=== PATIENT | female | born 1950 | race Caucasian/White ===

== ENCOUNTER 2020-08-22 07:27 | Day surgery (SDC) | payer MEDICARE, SELFPAY ==
[2020-08-17 14:21] VITALS: BMI 20.7
--- NOTE | 2020-08-21 14:06 | HO.ANESPROP2 ---
Documented by User: Verito Delgado 08/21/20 14:07 HPI - Anesthesia Eval Consult details Narrative: 69yo F for Colonoscopy FOR[facility] Past Medical History Medical History Asthma Rheumatoid arthritis Surgical History Surgical History History of bilateral tubal ligation S/P breast lumpectomy Social History Social History Smoking Status: Never smoker Use of substances other than those prescribed or required for medical reasons: No Advance Directives: No Advance Directives Information Provided: Yes Meds Allergies Allergy/AdvReac Type Severity Reaction Status Date / Time nitrofurantoin [Macrobid] Allergy Unknown Verified 02/06/20 00:00 simvastatin Allergy Unknown Uncoded 02/06/20 00:00 Home Medications Medication Instructions Recorded Confirmed Type leflunomide 1 tab PO DAILY 08/17/20 08/17/20 History Exam Exam Date and Time: August 21, 2020 1406 Height,Weight and Vital Signs: Height 5 ft 5 in Weight 56.699 kg Assessment and Plan Assessment Anesthesia Assessment: Chart Reviewed Documented by User: Lenora Gonsales 08/22/20 08:02 [facility] Past Medical History Medical History Asthma Rheumatoid arthritis Surgical History Surgical History History of bilateral tubal ligation S/P breast lumpectomy Social History Social History Smoking Status: Never smoker Use of substances other than those prescribed or required for medical reasons: No Advance Directives: No Advance Directives Information Provided: Yes Meds Allergies Allergy/AdvReac Type Severity Reaction Status Date / Time nitrofurantoin [Macrobid] Allergy Unknown Verified 02/06/20 00:00 simvastatin Allergy Unknown Uncoded 02/06/20 00:00 Home Medications Medication Instructions Recorded Confirmed Type leflunomide 1 tab PO DAILY 08/17/20 08/17/20 History Exam Airway Mallampati Class: III TM Dist: >3cm Neck ROM: Full Partial: Upper (Permant upper bridge midline to RT) Heart: RRR Lungs: CTA Assessment and Plan Assessment Anesthesia Assessment: Anesthesia Plan Discussed and Chart Reviewed Final Anesthetic Review NPO: Yes ASA Class: II Final Preanesthetic Review: No Changes in Pt Med Stat, Meds/Allgs Chart Reviewed and Consent Obtained/Reviewed Patient Risk: Low Procedure Risk: Low Anesthetic Plan Disposition: Standard PACU
[2020-08-22 07:43] VITALS: BP 141/87; PULSE 94; RESP 16; TEMP 36.9; O2SAT 99
[2020-08-22] MEDS: Lactated Ringers 1,000 ML 100 ML IVCONT (08:04)
[2020-08-22 08:25] VITALS: BP 141/87; PULSE 96; RESP 16; TEMP 36.9; O2SAT 99
[2020-08-22 09:16] VITALS: BP 124/70; PULSE 91; RESP 16; TEMP 36.1; O2SAT 99
--- NOTE | 2020-08-22 09:17 | PM.OP ---
Brief Operative Note Date of procedure: 08/22/20 Pre-op diagnosis: Screening Post-op diagnosis: other (Diverticulosis, Internal hemorrhoids) Procedure: Colonoscopy to the cecum and TI Surgeon: Jt Molina Anesthesia: MAC Pathology: none sent Condition: stable Disposition: PACU
--- NOTE | 2020-08-22 09:29 | HO.POSTANES ---
Post Anesthesia Evaluation Post Anesthesia Evaluation Vital Signs: Vital Signs Temp Pulse Resp BP Pulse Ox 08/22/20 09:16 96.9 F 91 16 124/70 99 08/22/20 08:25 98.5 F 96 16 141/87 H 99 08/22/20 07:43 98.5 F 94 16 141/87 H 99 Anesthesia: Monitored Mental Status: Awake Pain Control: Satisfactory Nausea/Vomiting: None Hydration: Adequate Anesthesia-Related Issues: No Anes. Related Issues
[2020-08-22 09:36] VITALS: BP 124/70; PULSE 91; RESP 14; O2SAT 98
--- NOTE | 2020-08-22 10:12 | HO.POSTANES ---
Post Anesthesia Evaluation Post Anesthesia Evaluation Vital Signs: Vital Signs Temp Pulse Resp BP Pulse Ox 08/22/20 09:36 91 14 124/70 98 08/22/20 09:16 96.9 F 91 16 124/70 99 08/22/20 08:25 98.5 F 96 16 141/87 H 99 08/22/20 07:43 98.5 F 94 16 141/87 H 99 Anesthesia: Monitored Mental Status: Awake Pain Control: Satisfactory Nausea/Vomiting: None Hydration: Adequate Anesthesia-Related Issues: No Anes. Related Issues
--- NOTE | 2020-08-22 10:50 | OP_ITS ---
SURGEON: Jt Molina MD INDICATIONS: The patient presents for evaluation of colorectal cancer screening. Full consent has been obtained from her for this, including risks of bleeding and perforation. PREOPERATIVE DIAGNOSIS: Colorectal cancer screening. POSTOPERATIVE DIAGNOSIS: PROCEDURE PERFORMED: Colonoscopy to cecum and terminal ileum. ESTIMATED BLOOD LOSS: COMPLICATIONS: ANESTHESIA: Monitored anesthesia care. ASSISTANTS: SPECIMENS: POSTOPERATIVE DIAGNOSES: Colorectal cancer screening, sigmoid diverticulosis, and internal hemorrhoids. DESCRIPTION OF PROCEDURE: The patient was placed in the left lateral decubitus position. The digital rectal exam revealed no abnormalities. The Olympus video pediatric colonoscope was entered into the rectum and advanced easily to the cecum. Once in the cecum, I did identify normal-appearing cecal pouch with appendiceal orifice and a normal-appearing ileocecal valve. The terminal ileum was cannulated and appeared normal. Scope was withdrawn back in the colon. The entire cecum and ileocecal valve appeared normal. The scope was slowly withdrawn assessing all mucosal surfaces carefully. Preparation was excellent. I did not visualize any sign of polyps, colitis, nor angiodysplasia. There was a mild amount of sigmoid diverticulosis. In the rectum, scope was retroflexed visualizing internal hemorrhoids, but no other pathology. The rectal mucosa appeared normal. The scope was straightened out and withdrawn from the patient. She tolerated procedure well and was returned to the recovery area in stable condition. IMPRESSION: 1. Sigmoid diverticulosis. 2. Internal hemorrhoids. PLAN: Given the patient's negative exam, I would recommend a followup colonoscopy in 10 years for further screening. She will otherwise see me on a p.r.n. basis. This has been discussed with her . MD JUSTO Pickard/MOODYL / [phone]
== END 2020-08-22 10:07 | disposition home or self-care (01) ==
PROVIDERS: PCP Internal Medicine; Visit Provider Internal Medicine
PROC: 0DJD8ZZ Inspection of Lower Intestinal Tract, Via Natural or Artificial Opening Endoscopic (ICD-10-PCS; CPT 45378; principal; 2020-08-22 08:40)
DX: Z12.11 Encounter for screening for malignant neoplasm of colon (principal); K57.30 Diverticulosis of large intestine without perforation or abscess without bleeding; K64.8 Other hemorrhoids; J45.909 Unspecified asthma, uncomplicated; M06.9 Rheumatoid arthritis, unspecified; Z79.899 Other long term (current) drug therapy
CPT/HCPCS: G0121

== ENCOUNTER 2020-08-28 10:59 | Outpatient (REF) | payer MEDICARE, SELFPAY ==
--- NOTE | 2020-08-28 11:07 | XR_ITS ---
EXAMINATION: XR CHEST CLINICAL INFORMATION: Palpitations. Annual physical exam. COMPARISON: Chest radiographs 08/21/2014 TECHNIQUE: 2 views of the chest were obtained. FINDINGS: The heart is normal in size. The vascularity is normal. The lungs are clear. There is no vascular congestion, airspace consolidation, groundglass opacity, or effusion. The hilar and mediastinal contours are normal. There is curvature again noted thoracic and lumbar spine. No acute bony abnormality. IMPRESSION: Lungs clear. No acute intrathoracic disease.
== END 2020-08-28 11:00 | disposition home or self-care (01) ==
LOC: HO.XRAY 10:59
PROVIDERS: PCP Internal Medicine; Visit Provider Internal Medicine
DX: R00.2 Palpitations (principal); M06.9 Rheumatoid arthritis, unspecified; E78.00 Pure hypercholesterolemia, unspecified
CPT/HCPCS: 71046

== ENCOUNTER → 2020-08-29 09:55 | Outpatient (BNVA) | payer MEDICARE, SELFPAY | PROVIDERS: PCP Internal Medicine; Referring Provider Internal Medicine; Visit Provider Internal Medicine Cardiovascular Disease | DX: R00.2 Palpitations (principal); R06.00 Dyspnea, unspecified | CPT/HCPCS: 99204 ==

== ENCOUNTER → 2020-08-31 09:42 | Outpatient (REF) | payer MEDICARE, SELFPAY ==
--- NOTE | 2020-08-31 09:48 | CA_ITS ---
Transthoracic Echocardiogram Patient (Last, First, Middle): Sanjana Bacon, Gender: Female Date of : 1950 Age: 69 Procedure Date: 08/31/2020 Procedure Type: Transthoracic Echocardiogram Location: OP Height: 165.1 cm Weight: 56.25 kg BSA: 1.61 m2 Heart Rate: bpm BP: 120 / 74 mmHg Watch Leader: CLARITA Referring MD: Tani Gudino MD Symptoms: R06.00 Dyspnea unstecified Study Quality: Good ECG Rhythm: Sinus Conclusions: - Normal biventricular function. No significant valvular or pericardial pathology noted. Normal PA pressures. Findings Left Ventricle Normal left ventricular size and systolic function. There is mildly increased left ventricular wall thickness. The visually estimated ejection fraction is between 60-65%. There is no evidence of regional wall motion abnormalities. Diastolic function is normal for age. Right Ventricle Normal right ventricular cavity size and systolic function. Atria Both atria are normal in size. Aortic Valve Normal aortic valve structure and function. There is no aortic valve stenosis. There is no aortic valve regurgitation. Mitral Valve Normal mitral valve structure and function. There is no mitral valve regurgitation. There is no mitral valve stenosis. Pulmonic Valve Normal pulmonic valve structure and function. There is trace pulmonic valve regurgitation. Tricuspid Valve Normal tricuspid valve structure and function. There is trace tricuspid valve regurgitation. Normal right atrial pressure. There is no evidence of pulmonary hypertension. Great Vessels All visible segments of the aorta are normal in size. The visualized portions of the pulmonary artery and branches are normal. Venous The inferior vena cava is normal in size and collapses greater than 50% with inspiration. Pericardium/Pleural There is no evidence of pericardial effusion. Prior Study Comparison No significant change compared to prior study dated: 08/13/2007. Measurements 2D Linear Measurements IVSd: 1.01 0.6-0.9/0.6-1.0 cm LVIDd: 3.71 3.9-5.3/4.2-5.9 cm LVIDd Index: 2.30 2.4-3.2/2.2-3.1 cm/m2 LVIDs: 2.05 2.0-3.6 cm LVPWd: 0.93 0.7-1.1 cm Ao Root: 2.60 2.1-3.5 cm LV Mass: 134.67 67-162/88-224 g LV Mass Index: 83.65 43-95/49-115 g/m2 LVOT Diam: 2.00 3.0+(-)1.3 cm 2D Systolic Function EF 4C: 71.80 >55% EF 2C: 63.40 >55% Mitral Valve MV Pk E: 0.70 MV PK A: 1.10 MV Decel Time: 162.00 E/A: 0.60 E'Lateral: 9.28 E'Medial: 8.41 E/E' Med: 8.40 E/E' Lat: 7.60 PHT: 47.00 MVA PHT: 4.68 Decel [place]: 4.34 Aortic Valve AoV Pk Rinku: 1.38 AoV Mn Rinku: 0.90 AoV VTI: 0.26 AoV Pk Grad: 8.00 Aov Mn Grad: 4.00 ROSANA Cont.VTI: 2.74 LVOT LVOT Pk Rinku: 1.01 LVOT Mn Rinku: 0.71 LVOT VTI: 0.23 LVOT Pk Grad: 4.00 LVOT Mn Grad: 2.00 LVOT Diam: 2.00 LVOT Area: 3.14 Diastolic Function MV Pk E: 0.70 MV Pk A: 1.10 E/A: 0.60 E'Medial: 8.41 E/E' Med: 8.40 E' Laterial: 9.28 E/E' Lat: 7.60 Tricuspid Valve TR Pk Rinku: 2.50 TR Pk Grad: 25.00 RA Press: 3.00 RVSP: 28.00 Great Vessels Aorta Ao Root-2D: 2.60 2.0-3.7 cm Ao Asc: 2.80 2.1-3.4 cm Updated in Other Vendor System with Status of Final Tani Gudino MD electronically signed on 09/03/2020 12:16:26 PM with status of Final
== END ==
LOC: HO.CARD 09:42
PROVIDERS: PCP Internal Medicine; Visit Provider Internal Medicine Cardiovascular Disease
DX: R06.00 Dyspnea, unspecified (principal)
CPT/HCPCS: 93306

== ENCOUNTER → 2020-11-01 07:54 | Outpatient (BNVA) | payer MEDICARE, SELFPAY | PROVIDERS: PCP Internal Medicine; Referring Provider Internal Medicine; Visit Provider Student in an Organized Health Care Education/Training Program | DX: Z13.89 Encounter for screening for other disorder (principal) | CPT/HCPCS: Q3014 ==

== ENCOUNTER 2020-12-12 08:41 | Outpatient (REF) | payer MEDICARE, SELFPAY ==
[2020-12-12 09:16] LABS: MANUAL DIFF FLAG NO
[2020-12-12 09:19] LABS: Basophils Percent Auto 0.5 % (0-2); Eosinophils Absolute Auto 0.2 X10*3/uL (0.0-0.4); Eosinophils Percent Auto 3.9 % (0-4); Hematocrit 38.7 % (37-47); Imm Gran Abs Auto 0.02 X10*3/uL (0.00-0.03); Imm Gran Pct Auto 0.3 % (0.0-0.4); Lymphocytes Absolute Auto 1.2 X10*3/uL (1.2-4.9); Lymphocytes Percent Auto 20.8 % (20-40); Mean Corpuscular HGB Conc 36.2 g/dl (31.0-35.0); Mean Corpuscular Hemoglobin 32.1 pg (27.0-33.0); Mean Corpuscular Volume 88.8 fL (80-98); Mean Platelet Volume 9.2 fL (9.4-12.3); Monocytes Absolute Auto 0.4 X10*3/uL (0.1-1.2); Monocytes Percent Auto 6.9 % (2-11); Neutrophils Percent Auto 67.6 % (45-73); Platelet Count 253 X10*3/uL (160-400); Red Blood Count 4.36 X10*6/uL (4.20-5.50); Red Cell Distribution Width 11.8 % (11.0-16.0); White Blood Count 5.9 X10*3/uL (4.8-10.8)
[2020-12-12 09:48] LABS: Alanine Aminotransferase 42 U/L (0-31); Alkaline Phosphatase 89 U/L (39-117); Anion Gap 12 (12-20); Aspartate Amino Transferase 28 U/L (5-31); Bilirubin Total 0.5 mg/dL (0.0-1.0); Blood Urea Nitrogen 20 mg/dL (9-16); C Reactive Protein 0.14 mg/dL (< or = 0.50); Calcium 9.7 mg/dL (8.4-10.2); Carbon Dioxide 27 mmol/L (22-29); Chloride 105 mmol/L (96-108); Estimated Glomerular Filt Rate > 60; Glucose Random 110 mg/dL (60-115); Potassium 4.1 mmol/l (3.3-5.1); Sodium 140 mmol/L (135-145); Total Protein 6.6 g/dL (6.5-8.0)
[2020-12-12 10:17] LABS: Erythrocyte Sedimentation Rate 14 MM/HR (0-20)
== END 2020-12-12 08:42 | disposition home or self-care (01) ==
LOC: HO.LAB 08:41
PROVIDERS: PCP Internal Medicine; Visit Provider Student in an Organized Health Care Education/Training Program
DX: M05.79 Rheumatoid arthritis with rheumatoid factor of multiple sites without organ or systems involvement (principal)
CPT/HCPCS: 36415; 80053; 85025; 85652; 86140

== ENCOUNTER → 2021-01-30 08:00 | Outpatient (BNVA) | payer MEDICARE, SELFPAY | PROVIDERS: PCP Internal Medicine; Visit Provider Student in an Organized Health Care Education/Training Program | DX: M05.9 Rheumatoid arthritis with rheumatoid factor, unspecified (principal) | CPT/HCPCS: 99212 ==

== ENCOUNTER 2021-03-18 08:23 | Outpatient (REF) | payer MEDICARE, SELFPAY ==
[2021-03-18 09:22] LABS: MANUAL DIFF FLAG NO
[2021-03-18 09:29] LABS: Basophils Percent Auto 0.5 % (0-2); Eosinophils Absolute Auto 0.1 X10*3/uL (0.0-0.4); Eosinophils Percent Auto 1.6 % (0-4); Hematocrit 42.2 % (37-47); Hemoglobin 15.2 g/dl (12.0-16.0); Imm Gran Abs Auto 0.01 X10*3/uL (0.00-0.03); Imm Gran Pct Auto 0.2 % (0.0-0.4); Lymphocytes Percent Auto 22.8 % (20-40); Mean Corpuscular Hemoglobin 32.5 pg (27.0-33.0); Mean Corpuscular Volume 90.4 fL (80-98); Mean Platelet Volume 9.8 fL (9.4-12.3); Monocytes Absolute Auto 0.3 X10*3/uL (0.1-1.2); Monocytes Percent Auto 6.6 % (2-11); Neutrophils Absolute Auto 2.9 X10*3/uL (2.0-8.3); Neutrophils Percent Auto 68.3 % (45-73); Platelet Count 202 X10*3/uL (160-400); Red Blood Count 4.67 X10*6/uL (4.20-5.50); White Blood Count 4.3 X10*3/uL (4.8-10.8)
[2021-03-18 10:04] LABS: Alanine Aminotransferase 16 U/L (0-31); Albumin Level 4.4 g/dL (3.5-5.0); Alkaline Phosphatase 47 U/L (39-117); Anion Gap 13 (12-20); Aspartate Amino Transferase 18 U/L (5-31); Bilirubin Total 0.6 mg/dL (0.0-1.0); Blood Urea Nitrogen 24 mg/dL (9-16); C Reactive Protein < 0.02 mg/dL (< or = 0.50); Calcium 10.5 mg/dL (8.4-10.2); Carbon Dioxide 27 mmol/L (22-29); Chloride 105 mmol/L (96-108); Estimated Glomerular Filt Rate > 60; Glucose Random 100 mg/dL (60-115); Potassium 4.8 mmol/L (3.3-5.1); Sodium 140 mmol/L (135-145); Total Protein 6.7 g/dL (6.5-8.0)
[2021-03-18 10:45] LABS: Erythrocyte Sedimentation Rate 2 MM/HR (0-20)
== END 2021-03-18 08:24 | disposition home or self-care (01) ==
LOC: HO.LAB 08:23
PROVIDERS: PCP Internal Medicine; Visit Provider Student in an Organized Health Care Education/Training Program
DX: M05.9 Rheumatoid arthritis with rheumatoid factor, unspecified (principal)
CPT/HCPCS: 36415; 80053; 85025; 85652; 86140

== ENCOUNTER 2021-04-04 05:46 | Emergency (ER) | payer MEDICARE, SELFPAY | END 2021-04-04 07:38 | disposition left against medical advice (07) | PROVIDERS: Emergency Provider Emergency Medicine Emergency Medical Services; PCP Internal Medicine | DX: F41.9 Anxiety disorder, unspecified (principal) ==

== ENCOUNTER 2021-06-12 07:55 | Outpatient (REF) | payer MEDICARE, SELFPAY ==
[2021-06-12 09:00] LABS: MANUAL DIFF FLAG NO
[2021-06-12 09:05] LABS: Basophils Percent Auto 0.4 % (0-2); Eosinophils Absolute Auto 0.2 X10*3/uL (0.0-0.4); Eosinophils Percent Auto 4.1 % (0-4); Hematocrit 38.8 % (37-47); Imm Gran Abs Auto 0.01 X10*3/uL (0.00-0.03); Imm Gran Pct Auto 0.2 % (0.0-0.4); Lymphocytes Absolute Auto 0.9 X10*3/uL (1.2-4.9); Lymphocytes Percent Auto 16.7 % (20-40); Mean Corpuscular HGB Conc 36.1 g/dl (31.0-35.0); Mean Corpuscular Volume 88.8 fL (80-98); Monocytes Absolute Auto 0.4 X10*3/uL (0.1-1.2); Monocytes Percent Auto 8.2 % (2-11); Neutrophils Absolute Auto 3.8 X10*3/uL (2.0-8.3); Neutrophils Percent Auto 70.4 % (45-73); Platelet Count 248 X10*3/uL (160-400); Red Blood Count 4.37 X10*6/uL (4.20-5.50); Red Cell Distribution Width 11.9 % (11.0-16.0); White Blood Count 5.4 X10*3/uL (4.8-10.8)
[2021-06-12 09:25] LABS: Alanine Aminotransferase 14 U/L (0-31); Albumin Level 4.2 g/dL (3.5-5.0); Alkaline Phosphatase 92 U/L (39-117); Anion Gap 12 (12-20); Aspartate Amino Transferase 20 U/L (5-31); Bilirubin Total 0.6 mg/dL (0.0-1.0); Blood Urea Nitrogen 15 mg/dL (9-16); Calcium 10.2 mg/dL (8.4-10.2); Carbon Dioxide 28 mmol/L (22-29); Chloride 105 mmol/L (96-108); Estimated Glomerular Filt Rate > 60; Glucose Random 93 mg/dL (60-115); Potassium 4.6 mmol/L (3.3-5.1); Sodium 140 mmol/L (135-145); Total Protein 6.8 g/dL (6.5-8.0)
[2021-06-12 09:32] LABS: B Type Natriuretic Peptide < 10 pg/mL (<100)
[2021-06-12 09:46] LABS: Thyroid Stimulating Hormone 1.07 uIU/mL (0.32-4.0)
[2021-06-12 09:48] LABS: Vitamin D 25-OH Total 53.3 ng/mL (>30)
[2021-06-12 10:17] LABS: Erythrocyte Sedimentation Rate 28 MM/HR (0-20)
[2021-06-12 10:29] LABS: Folate > 20.0 ng/mL (> or = 4.0); Vitamin B12 1101 pg/mL (200-900)
== END 2021-06-12 07:56 | disposition home or self-care (01) ==
LOC: HO.LAB 07:55
PROVIDERS: PCP Internal Medicine; Visit Provider Student in an Organized Health Care Education/Training Program
DX: M05.9 Rheumatoid arthritis with rheumatoid factor, unspecified (principal); E78.00 Pure hypercholesterolemia, unspecified
CPT/HCPCS: 36415; 80053; 82306; 82607; 82746; 83880; 84439; 84443; 85025; 85652; 86140; 99212

== ENCOUNTER 2021-08-23 14:40 | Outpatient (REF) | payer MEDICARE, SELFPAY ==
[2021-08-23 15:16] LABS: Appearance Urine HAZY; Color Urine YELLOW; Glucose Urine UA NEG (NEG); Leukocyte Esterase Urine TRACE (NEG); Nitrite Urine POS (NEG); Specific Gravity - Urine 1.025 (1.005-1.025); Urine Blood TRACE (NEG); Urine Ketones NEG (NEG); Urine Protein TRACE MG/DL (NEG-TRACE)
[2021-08-23 15:39] LABS: Bacteria Urine 1+ /LPF; Renal Epithelial Cells Urine TRACE /LPF; Squamous Epithelial Cell Urine 2+ /LPF
[2021-08-23 15:40] LABS: Mucus Urine 1+ /LPF
== END 2021-08-23 14:41 | disposition home or self-care (01) ==
LOC: HO.LAB 14:40
PROVIDERS: PCP Internal Medicine; Visit Provider Internal Medicine
DX: R30.0 Dysuria (principal)
CPT/HCPCS: 81001

== ENCOUNTER → 2021-09-23 12:47 | Outpatient (REF) | payer MEDICARE, SELFPAY ==
--- NOTE | 2021-09-23 12:55 | ECG_ITS ---
Test Reason : htn Blood Pressure : / mmHG Vent. Rate : 090 BPM Atrial Rate : 090 BPM P-R Int : 192 ms QRS Dur : 070 ms QT Int : 366 ms P-R-T Axes : 072 009 055 degrees QTc Int : 447 ms Normal sinus rhythm Nonspecific ST abnormality Lateral leads Abnormal ECG No previous ECGs available Referred By: Toyin Gomez Electronically Signed By:NICOLE YUAN MD
[2021-09-23 13:38] LABS: Hematocrit 40.2 % (37.0-47.0); Hemoglobin 14.5 g/dl (12.0-16.0); Mean Corpuscular HGB Conc 36.1 g/dl (31.0-35.0); Mean Corpuscular Hemoglobin 31.9 pg (27.0-33.0); Mean Corpuscular Volume 88.5 fL (80.0-98.0); Mean Platelet Volume 10.2 fL (9.4-12.3); Platelet Count 191 X10*3/uL (160-400); Red Blood Count 4.54 X10*6/uL (4.20-5.50); Red Cell Distribution Width 13.2 % (11.0-16.0); White Blood Count 4.6 X10*3/uL (4.8-10.8)
[2021-09-23 13:42] LABS: Appearance Urine CLEAR; Color Urine STRAW; Glucose Urine UA NEG (NEG); Leukocyte Esterase Urine NEG (NEG); Nitrite Urine NEG (NEG); Specific Gravity - Urine <= 1.005 (1.005-1.025); Urine Blood NEG (NEG); Urine Ketones NEG (NEG); Urine Protein NEG (NEG-TRACE)
[2021-09-23 13:55] LABS: Alanine Aminotransferase 26 U/L (0-31); Albumin Level 4.2 g/dL (3.5-5.0); Alkaline Phosphatase 59 U/L (39-117); Anion Gap 12 (12-20); Aspartate Amino Transferase 24 U/L (5-31); Bilirubin Total 0.4 mg/dL (0.0-1.0); Blood Urea Nitrogen 19 mg/dL (9-16); Calcium 9.8 mg/dL (8.4-10.2); Carbon Dioxide 28 mmol/L (22-29); Chloride 105 mmol/L (96-108); Cholesterol 263 mg/dL; Estimated Glomerular Filt Rate > 60; Glucose Random 139 mg/dL (60-115); HDL Cholesterol 54 mg/dL; LDL Cholesterol Calculated 152 mg/dl; Potassium 3.8 mmol/L (3.3-5.1); Sodium 141 mmol/L (135-145); Total Protein 6.6 g/dL (6.5-8.0); Triglycerides 289 mg/dL
[2021-09-23 14:25] LABS: RBC Urine 0 /HPF (0); Squamous Epithelial Cell Urine 2+ /LPF; WBC Urine 0 /HPF (0-4)
== END ==
LOC: HO.CARD 12:47
PROVIDERS: PCP Internal Medicine; Visit Provider Nurse Practitioner Family
DX: R03.0 Elevated blood-pressure reading, without diagnosis of hypertension (principal); R42 Dizziness and giddiness; E78.00 Pure hypercholesterolemia, unspecified; R30.0 Dysuria
CPT/HCPCS: 36415; 80053; 80061; 81001; 85027; 93005

== ENCOUNTER → 2022-02-20 08:28 | Outpatient (BNVA) | payer MEDICARE, SELFPAY | PROVIDERS: PCP Internal Medicine; Visit Provider Nurse Practitioner Family | DX: M05.9 Rheumatoid arthritis with rheumatoid factor, unspecified (principal) | CPT/HCPCS: 99212 ==

== ENCOUNTER 2022-02-28 13:45 | Outpatient (REF) | payer MEDICARE, SELFPAY ==
[2022-02-28 14:02] LABS: MANUAL DIFF FLAG NO
[2022-02-28 14:16] LABS: Basophils Percent Auto 0.6 % (0-2); Eosinophils Absolute Auto 0.2 X10*3/uL (0.0-0.4); Hematocrit 39.7 % (37.0-47.0); Imm Gran Abs Auto 0.01 X10*3/uL (0.00-0.03); Imm Gran Pct Auto 0.2 % (0.0-0.4); Lymphocytes Absolute Auto 1.4 X10*3/uL (1.2-4.9); Lymphocytes Percent Auto 25.4 % (20-40); Mean Corpuscular HGB Conc 35.3 g/dl (31.0-35.0); Mean Corpuscular Hemoglobin 31.5 pg (27.0-33.0); Mean Corpuscular Volume 89.2 fL (80.0-98.0); Mean Platelet Volume 9.4 fL (9.4-12.3); Monocytes Absolute Auto 0.4 X10*3/uL (0.1-1.2); Monocytes Percent Auto 7.5 % (2-11); Neutrophils Absolute Auto 3.3 x10*3/uL (2.0-8.3); Neutrophils Percent Auto 62.3 % (45-73); Platelet Count 213 X10*3/uL (160-400); Red Blood Count 4.45 X10*6/uL (4.20-5.50); Red Cell Distribution Width 12.3 % (11.0-16.0); White Blood Count 5.3 X10*3/uL (4.8-10.8)
[2022-02-28 14:38] LABS: Alanine Aminotransferase 16 U/L (0-31); Albumin Level 3.9 g/dL (3.5-5.0); Alkaline Phosphatase 81 U/L (39-117); Anion Gap 14 (12-20); Aspartate Amino Transferase 19 U/L (5-31); Bilirubin Total 0.2 mg/dL (0.0-1.0); Blood Urea Nitrogen 19 mg/dL (9-16); Calcium 9.8 mg/dL (8.4-10.2); Carbon Dioxide 23 mmol/L (22-29); Chloride 107 mmol/L (96-108); Estimated Glomerular Filt Rate > 60; Glucose Random 95 mg/dL (60-115); Potassium 4.4 mmol/L (3.3-5.1); Sodium 140 mmol/L (135-145); Total Protein 6.4 g/dL (6.5-8.0)
[2022-02-28 14:57] LABS: Erythrocyte Sedimentation Rate 18 MM/HR (0-20)
[2022-03-03 08:05] LABS: HBS Num1 1.66 mIU/mL (0-7.99); HBc Num1 1.66 S/CO (0.00-0.79); HBsAGNum1 0.21 S/CO (0.00-0.99); Hepatitis B Surface Antigen Negative (Negative); ~Hepatitis B Surface Antibody NONREACTIVE (Nonreactive)
[2022-03-03 08:35] LABS: ~HepC Num1 0.13 S/CO (0.00-0.79); ~Hepatitis C Antibody Nonreactive (Nonreactive)
[2022-03-03 09:13] LABS: HBc Num2 1.73 S/CO; HBc Num3 1.71 S/CO; Hepatitis B Core Antibody Reactive (Nonreactive)
[2022-03-05 08:13] LABS: Hepatitis A Antibody IgM 0.28 Index (0-0.79); ~Hepatitis A Antibody IgM Nonreactive (Nonreactive)
[2022-03-06 02:23] LABS: Hepatitis B Core Antibody IgM NON-REACTIVE (NON-REACTIVE)
== END 2022-02-28 13:46 | disposition home or self-care (01) ==
LOC: HO.LAB 13:45
PROVIDERS: PCP Internal Medicine; Visit Provider Nurse Practitioner Family
DX: M05.9 Rheumatoid arthritis with rheumatoid factor, unspecified (principal)
CPT/HCPCS: 36415; 80053; 85025; 85652; 86140; 86481; 86704; 86705; 86706; 86709; 86803; 87340

== ENCOUNTER 2022-06-17 08:51 | Outpatient (REF) | payer MEDICARE, SELFPAY ==
[2022-06-17 09:21] LABS: MANUAL DIFF FLAG NO
[2022-06-17 09:59] LABS: Basophils Percent Auto 0.5 % (0-2); Eosinophils Absolute Auto 0.2 X10*3/uL (0.0-0.4); Eosinophils Percent Auto 2.5 % (0-4); Hematocrit 38.9 % (37.0-47.0); Hemoglobin 13.9 g/dl (12.0-16.0); Imm Gran Abs Auto 0.01 X10*3/uL (0.00-0.03); Imm Gran Pct Auto 0.2 % (0.0-0.4); Lymphocytes Percent Auto 16.2 % (20-40); Mean Corpuscular HGB Conc 35.7 g/dl (31.0-35.0); Mean Corpuscular Hemoglobin 31.2 pg (27.0-33.0); Mean Corpuscular Volume 87.2 fL (80.0-98.0); Mean Platelet Volume 9.5 fL (9.4-12.3); Monocytes Absolute Auto 0.4 X10*3/uL (0.1-1.2); Monocytes Percent Auto 7.2 % (2-11); Neutrophils Absolute Auto 4.4 x10*3/uL (2.0-8.3); Neutrophils Percent Auto 73.4 % (45-73); Platelet Count 234 X10*3/uL (160-400); Red Blood Count 4.46 X10*6/uL (4.20-5.50); Red Cell Distribution Width 11.9 % (11.0-16.0)
[2022-06-17 10:46] LABS: Alanine Aminotransferase 18 U/L (0-31); Aspartate Amino Transferase 22 U/L (5-31); C Reactive Protein 0.18 mg/dL (< or = 0.50); Estimated Glomerular Filt Rate > 60
[2022-06-17 11:20] LABS: Erythrocyte Sedimentation Rate 23 MM/HR (0-20)
[2022-06-20 15:56] LABS: TS Negative Control Passed; TS Panel A 2; TS Panel B 3; TS Positive Control Passed; TSpotTB Negative (Negative)
== END 2022-06-17 08:52 | disposition home or self-care (01) ==
LOC: HO.LAB 08:51
PROVIDERS: Absent Provider Nurse Practitioner Family; PCP Internal Medicine; Visit Provider Nurse Practitioner Family
DX: Z11.1 Encounter for screening for respiratory tuberculosis (principal); M05.9 Rheumatoid arthritis with rheumatoid factor, unspecified; Z79.899 Other long term (current) drug therapy
CPT/HCPCS: 36415; 82565; 84450; 84460; 85025; 85652; 86140; 86481; 99212

== ENCOUNTER 2022-09-25 12:43 | Outpatient (REF) | payer MEDICARE, SELFPAY ==
--- NOTE | 2022-09-25 12:46 | EEG_ITS ---
Waking background activity consists of low voltage fast frequencies seen diffusely, intermixed with a low voltage posterior 10 hertz alpha frequency. Photic stimulation was without activation. Hyperventilation was omitted. No sleep stages were identified. No focal, lateralizing, or paroxysmal discharges seen. IMPRESSION: This waking EEG is within normal limits. MD HUBER Acevedo/MACHELLE / [phone]
== END 2022-09-25 12:44 | disposition home or self-care (01) ==
LOC: HO.NEURO 12:43
PROVIDERS: Visit Provider Internal Medicine
DX: G45.9 Transient cerebral ischemic attack, unspecified (principal)
CPT/HCPCS: 95816

== ENCOUNTER 2022-09-26 09:15 | Outpatient (REF) | payer MEDICARE, SELFPAY ==
--- NOTE | ~2022-09-26 | CT_ITS ---
EXAMINATION: CT HEAD WITHOUT CONTRAST CLINICAL INFORMATION: Transient cerebral ischemic attack. COMPARISON: None available. TECHNIQUE: Contiguous axial imaging was performed from the skull base to vertex without intravenous administration of contrast. This CT examination was performed using dose optimization techniques as appropriate, variously including the following: *Automated exposure control. *Adjustment of mA and/or kV according to patient size (this includes techniques or standardized protocols for targeted exams where dose is matched to indication/reason for exam; i.e. extremities or head). *Use of iterative reconstruction technique. DLP: 760 mGy-cm FINDINGS: There is no evidence of acute intracranial hemorrhage or edematous territorial infarction. Hancock-white matter differentiation is preserved. A few foci of hypoattenuation in the periventricular and deep white matter are consistent with mild microangiopathy. Proportional prominence of the ventricles and sulcal spaces without evidence of obstructive hydrocephalus. No abnormal mass effect or midline shift. No extra-axial fluid collections. Mild calcific atherosclerotic disease of the intracranial internal carotid arteries. No hyperdense vessel sign. No acute soft tissue or osseous abnormalities. The mastoid air cells and visualized paranasal sinuses are clear. CT/CT head/brain wo IV con IMPRESSION: 1. No evidence of acute intracranial hemorrhage or edematous territorial infarction. 2. Mild underlying microangiopathy and generalized cerebral volume loss.
== END 2022-09-26 09:16 | disposition home or self-care (01) ==
LOC: HO.CT 09:15
PROVIDERS: Visit Provider Internal Medicine
DX: I63.9 Cerebral infarction, unspecified (principal)
CPT/HCPCS: 70450

== ENCOUNTER → 2022-10-20 09:50 | Outpatient (BNVA) | payer MEDICARE, SELFPAY | PROVIDERS: PCP Internal Medicine; Referring Provider Internal Medicine; Visit Provider Nurse Practitioner Family | DX: M05.9 Rheumatoid arthritis with rheumatoid factor, unspecified (principal); R76.8 Other specified abnormal immunological findings in serum; Z79.899 Other long term (current) drug therapy | CPT/HCPCS: 99212 ==

== ENCOUNTER 2022-11-06 08:03 | Outpatient (REF) | payer MEDICARE, SELFPAY ==
--- NOTE | ~2022-11-06 | XR_ITS ---
EXAMINATION: XR HAND, RIGHT XR HAND, LEFT CLINICAL INFORMATION: M05.9 - Rheumatoid arthritis with rheumatoid factor, unspecified COMPARISON: Bilateral hand wrist radiographs 06/22/2017 TECHNIQUE: The right hand is imaged in 3 views. The left hand is imaged in 3 views. There are a total of 6 views. FINDINGS: Right: Normal bony mineralization. No periarticular demineralization. No interval erosive changes from prior exam 2017. There is slight negative ulnar variance again seen. The carpus shows no joint narrowing or erosive change or chondrocalcinosis. Interval mild narrowing second MCP joints is present without erosion. There is mild interval narrowing fourth finger PIP joint and mild increased osteoarthritic changes again seen DIP joints of the second third and fourth fingers. Left: Normal bony mineralization. No periarticular demineralization. No interval erosive changes from prior exam 2017. Slight negative ulnar variance is again seen. Again, there is mild degenerative changes distal radial ulnar articulation at the sigmoid notch. There are interval progressive osteoarthritic changes first carpometacarpal joint. The MCP and PIP joints are unremarkable. There are mild degenerative changes 3rd finger DIP joint. XR/XR hand RT min 3V IMPRESSION: Right: -No interval erosive changes from prior exam 2017. -Interval mild narrowing second MCP and 4th PIP joints. -Interval mild increased degenerative changes DIP joints. Left: -No interval erosive changes from prior exam 2017. -Interval increased osteoarthritic changes 1st CMC joint and 3rd DIP joint.
--- NOTE | ~2022-11-06 | XR_ITS ---
EXAMINATION: XR HAND, RIGHT XR HAND, LEFT CLINICAL INFORMATION: M05.9 - Rheumatoid arthritis with rheumatoid factor, unspecified COMPARISON: Bilateral hand wrist radiographs 06/22/2017 TECHNIQUE: The right hand is imaged in 3 views. The left hand is imaged in 3 views. There are a total of 6 views. FINDINGS: Right: Normal bony mineralization. No periarticular demineralization. No interval erosive changes from prior exam 2017. There is slight negative ulnar variance again seen. The carpus shows no joint narrowing or erosive change or chondrocalcinosis. Interval mild narrowing second MCP joints is present without erosion. There is mild interval narrowing fourth finger PIP joint and mild increased osteoarthritic changes again seen DIP joints of the second third and fourth fingers. Left: Normal bony mineralization. No periarticular demineralization. No interval erosive changes from prior exam 2017. Slight negative ulnar variance is again seen. Again, there is mild degenerative changes distal radial ulnar articulation at the sigmoid notch. There are interval progressive osteoarthritic changes first carpometacarpal joint. The MCP and PIP joints are unremarkable. There are mild degenerative changes 3rd finger DIP joint. XR/XR hand LT min 3V IMPRESSION: Right: -No interval erosive changes from prior exam 2017. -Interval mild narrowing second MCP and 4th PIP joints. -Interval mild increased degenerative changes DIP joints. Left: -No interval erosive changes from prior exam 2017. -Interval increased osteoarthritic changes 1st CMC joint and 3rd DIP joint.
[2022-11-06 08:19] LABS: MANUAL DIFF FLAG NO
[2022-11-06 09:04] LABS: Basophils Percent Auto 0.5 % (0-2); Eosinophils Absolute Auto 0.2 X10*3/uL (0.0-0.4); Eosinophils Percent Auto 4.3 % (0-4); Hematocrit 40.6 % (37.0-47.0); Hemoglobin 14.2 g/dl (12.0-16.0); Imm Gran Abs Auto 0.01 X10*3/uL (0.00-0.03); Imm Gran Pct Auto 0.2 % (0.0-0.4); Lymphocytes Absolute Auto 1.4 X10*3/uL (1.2-4.9); Mean Corpuscular Hemoglobin 31.2 pg (27.0-33.0); Mean Corpuscular Volume 89.2 fL (80.0-98.0); Mean Platelet Volume 9.4 fL (9.4-12.3); Monocytes Absolute Auto 0.5 X10*3/uL (0.1-1.2); Monocytes Percent Auto 8.2 % (2-11); Neutrophils Absolute Auto 3.5 x10*3/uL (2.0-8.3); Neutrophils Percent Auto 61.8 % (45-73); Platelet Count 264 X10*3/uL (160-400); Red Blood Count 4.55 X10*6/uL (4.20-5.50); Red Cell Distribution Width 12.7 % (11.0-16.0); White Blood Count 5.6 X10*3/uL (4.8-10.8)
[2022-11-06 09:34] LABS: Appearance Urine Cloudy; Color Urine Yellow; Glucose Urine UA Negative (Negative); Leukocyte Esterase Urine Negative (Negative); Nitrite Urine Negative (Negative); PH 5.5 (5.0-9.0); Specific Gravity - Urine >= 1.030 (1.005-1.025); Urine Blood Negative (Negative); Urine Ketones Trace mg/dL (Negative); Urine Protein Trace mg/dL (Neg-Trace)
[2022-11-06 09:37] LABS: Bacteria Urine None Seen (None Seen); Hyaline Casts Urine 0-2 /LPF (0-2); Squamous Epithelial Cell Urine >20 /HPF (0-2); WBC Urine 0-5 /HPF (0-5)
[2022-11-06 10:00] LABS: Erythrocyte Sedimentation Rate 23 MM/HR (0-20)
[2022-11-06 10:12] LABS: Folate 18.9 ng/mL (> or = 4.0); Vitamin B12 1006 pg/mL (200-900)
== END 2022-11-06 08:04 | disposition home or self-care (01) ==
LOC: HO.LAB 08:03
PROVIDERS: Absent Provider Internal Medicine; PCP Internal Medicine; Visit Provider Nurse Practitioner Family
DX: M05.9 Rheumatoid arthritis with rheumatoid factor, unspecified (principal); E78.00 Pure hypercholesterolemia, unspecified; Z79.899 Other long term (current) drug therapy
CPT/HCPCS: 36415; 73130; 81001; 82607; 82746; 85025; 85652

== ENCOUNTER 2022-11-12 08:07 | Outpatient (REF) | payer MEDICARE, SELFPAY ==
[2022-11-12 08:32] LABS: MANUAL DIFF FLAG NO
[2022-11-12 08:46] LABS: Basophils Percent Auto 0.5 % (0-2); Eosinophils Absolute Auto 0.3 X10*3/uL (0.0-0.4); Eosinophils Percent Auto 4.3 % (0-4); Hematocrit 37.8 % (37.0-47.0); Hemoglobin 13.6 g/dl (12.0-16.0); Imm Gran Abs Auto 0.01 X10*3/uL (0.00-0.03); Imm Gran Pct Auto 0.2 % (0.0-0.4); Lymphocytes Absolute Auto 1.5 X10*3/uL (1.2-4.9); Lymphocytes Percent Auto 25.3 % (20-40); Mean Corpuscular Hemoglobin 31.9 pg (27.0-33.0); Mean Corpuscular Volume 88.5 fL (80.0-98.0); Mean Platelet Volume 9.1 fL (9.4-12.3); Monocytes Absolute Auto 0.4 X10*3/uL (0.1-1.2); Monocytes Percent Auto 7.3 % (2-11); Neutrophils Absolute Auto 3.6 x10*3/uL (2.0-8.3); Neutrophils Percent Auto 62.4 % (45-73); Platelet Count 240 X10*3/uL (160-400); Red Blood Count 4.27 X10*6/uL (4.20-5.50); Red Cell Distribution Width 12.6 % (11.0-16.0); White Blood Count 5.8 X10*3/uL (4.8-10.8)
[2022-11-12 09:08] LABS: Alanine Aminotransferase 17 U/L (0-31); Aspartate Amino Transferase 19 U/L (5-31)
[2022-11-12 09:11] LABS: Alanine Aminotransferase 17 U/L (0-31); Aspartate Amino Transferase 20 U/L (5-31); Blood Urea Nitrogen 17 mg/dL (9-16); Estimated Glomerular Filt Rate > 60
[2022-11-12 09:34] LABS: Alanine Aminotransferase 17 U/L (0-31); Alkaline Phosphatase 87 U/L (39-117); Anion Gap 10 (12-20); Aspartate Amino Transferase 20 U/L (5-31); Bilirubin Total 0.6 mg/dL (0.0-1.0); Blood Urea Nitrogen 16 mg/dL (9-16); Calcium 9.5 mg/dL (8.4-10.2); Carbon Dioxide 27 mmol/L (22-29); Chloride 107 mmol/L (96-108); Cholesterol 229 mg/dL; Estimated Glomerular Filt Rate > 60; Free T4 (Free Thyroxine) 0.87 ng/dL (0.71-1.85); Glucose Random 91 mg/dL (60-115); HDL Cholesterol 46 mg/dL; LDL Cholesterol Calculated 165 mg/dl; Potassium 4.4 mmol/L (3.3-5.1); Sodium 140 mmol/L (135-145); Thyroid Stimulating Hormone 1.39 uIU/mL (0.32-4.0); Total Protein 6.4 g/dL (6.5-8.0); Triglycerides 92 mg/dL; Vitamin D 25-OH Total 70.1 ng/mL (>30)
== END 2022-11-12 08:08 | disposition home or self-care (01) ==
LOC: HO.LAB 08:07
PROVIDERS: Absent Provider Internal Medicine Rheumatology; PCP Internal Medicine; Visit Provider Nurse Practitioner Family
DX: E78.00 Pure hypercholesterolemia, unspecified (principal); M05.9 Rheumatoid arthritis with rheumatoid factor, unspecified; Z79.899 Other long term (current) drug therapy
CPT/HCPCS: 36415; 80053; 80061; 82306; 82565; 84439; 84443; 84450; 84460; 84520; 85025

== ENCOUNTER → 2022-11-18 10:06 | Outpatient (REF) | payer MEDICARE, SELFPAY ==
--- NOTE | ~2022-11-18 | US_ITS ---
EXAMINATION: US EXTRACRANIAL CAROTID DUPLEX, BILATERAL CLINICAL INFORMATION: Transient ischemic attack COMPARISON: None TECHNIQUE: Real-time ultrasound and Doppler techniques (integrating B-mode 2-D vascular images, Doppler spectral analysis and color-flow Doppler imaging) were utilized to interrogate the extracranial carotid arteries, the vertebral arteries and proximal subclavian arteries bilaterally. The degree of stenosis is determined by criteria similar to NASCET. FINDINGS: Right Side: 1. There is no significant atherosclerotic plaque seen in the bifurcation/proximal ICA region. 2. The common carotid artery PSV proximally is 106 cm/s and distally 71 cm/s. 3. The proximal internal carotid artery velocities are 85.6 cm/s systolic and 24.6 cm/s diastolic. 4. The proximal external carotid artery PSV is 93 cm/s. 5. The vertebral artery shows antegrade flow. 6. The subclavian artery waveforms are normal. Left Side: 1. There is no significant atherosclerotic plaque seen in the bifurcation/proximal ICA region. 2. The common carotid artery PSV proximally is 112 cm/s and distally 66 cm/s. 3. The proximal internal carotid artery velocities are 48.7 cm/s systolic and 17.7 cm/s diastolic. 4. The proximal external carotid artery PSV is 75 cm/s. 5. The vertebral artery shows antegrade flow. 6. The subclavian artery waveforms are normal. US/US carotid duplex BI IMPRESSION: 1. RIGHT: Normal right internal carotid artery without atherosclerotic plaque or hemodynamically significant stenosis. 2. LEFT: Normal left internal carotid artery without atherosclerotic plaque or hemodynamically significant stenosis.
--- NOTE | 2022-11-18 10:09 | CA_ITS ---
Transthoracic Echocardiogram Patient (Last, First, Middle): Sanjana Bacon, Gender: Female Date of : 1950 Age: 71 Procedure Date: 11/18/2022 Procedure Type: Transthoracic Echocardiogram Location: OP Height: 165.1 cm Weight: 57.15 kg BSA: 1.63 m2 Heart Rate: 81 bpm BP: 124 / 72 mmHg Biochemical Engineer: SB Referring MD: Juni Crews MD Symptoms: I10 - Essential (primary) hypertension Study Quality: Adequate ECG Rhythm: Sinus Conclusions: - The left ventricular systolic function is normal. The calculated ejection fraction is 66% by biplane method. - No obvious valvular pathology seen on this study. Findings Left Ventricle Normal left ventricular cavity size. The left ventricular systolic function is normal. The calculated ejection fraction is 66% by biplane method. There is no evidence of regional wall motion abnormalities. Diastolic function is normal for age. There is mild septal asymmetric hypertrophy. LV peak GLS 16.4%. Under-estimation possible. Right Ventricle Normal right ventricular cavity size and systolic function. Atria Both atria are normal in size. Aortic Valve There is a normal trileaflet aortic valve. There is mild calcification of the aortic valve. There is no aortic valve stenosis. There is no aortic valve regurgitation. Mitral Valve The mitral valve appears normal. There is trace mitral valve regurgitation. There is no mitral valve stenosis. Pulmonic Valve The pulmonic valve is likely normal. Tricuspid Valve There is trace tricuspid valve regurgitation. There is no evidence of pulmonary hypertension. Great Vessels The asc aorta is normal in size. Venous The inferior vena cava is normal in size and collapses greater than 50% with inspiration. Pericardium/Pleural There is no evidence of pericardial effusion. Prior Study Comparison No significant change compared to prior study dated: 08/31/2020. Recommendations, Care & Conclusions No obvious valvular pathology seen on this study. Measurements 2D Linear Measurements IVSd: 1.12 0.6-0.9/0.6-1.0 cm LVIDd: 3.93 3.9-5.3/4.2-5.9 cm LVIDd Index: 2.41 2.4-3.2/2.2-3.1 cm/m2 LVIDs: 2.22 2.0-3.6 cm LVPWd: 0.60 0.7-1.1 cm LA Diam: 2.60 2.7-3.8/3.0-4.0 cm LAIDs Index: 1.60 1.5-2.3 cm/m2 LV Mass: 124.65 67-162/88-224 g LV Mass Index: 76.47 43-95/49-115 g/m2 LVOT Diam: 1.90 3.0+(-)1.3 cm 2D Systolic Function EF 4C: 71.30 >55% EF 2C: 55.80 >55% EF BiP: 65.50 >55% Mitral Valve MV Pk E: 0.66 MV PK A: 0.89 MV Decel Time: 222.00 E/A: 0.70 E'Lateral: 7.51 E'Medial: 5.33 E/E' Med: 12.40 E/E' Lat: 8.80 PHT: 65.00 MVA PHT: 3.38 Decel [place]: 2.97 Aortic Valve AoV Pk Rinku: 1.21 AoV Mn Rinku: 0.90 AoV VTI: 0.26 AoV Pk Grad: 6.00 Aov Mn Grad: 4.00 ROSANA Cont.VTI: 2.49 LVOT LVOT Pk Rinku: 1.14 LVOT Mn Rinku: 0.79 LVOT VTI: 0.23 LVOT Pk Grad: 5.00 LVOT Mn Grad: 3.00 LVOT Diam: 1.90 LVOT Area: 2.84 Diastolic Function MV Pk E: 0.66 MV Pk A: 0.89 E/A: 0.70 E'Medial: 5.33 E/E' Med: 12.40 E' Laterial: 7.51 E/E' Lat: 8.80 Right Ventricle TAPSE (mm): 20.00 TVS' Rinku: 11.30 Tricuspid Valve RA Press: 3.00 Great Vessels Aorta Sinus of Valsalva: 2.80 2.0-3.5 cm Ao Asc: 3.10 2.1-3.4 cm Pulmonary Valve PV Pk Rinku: 0.75 Peak PV Grad: 2.00 Updated in Other Vendor System with Status of Final Andrew Nam MD electronically signed on 11/18/2022 12:37:51 PM with status of Final
== END ==
LOC: HO.CARD 10:06
PROVIDERS: PCP Internal Medicine; Visit Provider Internal Medicine
DX: I10 Essential (primary) hypertension (principal); G45.9 Transient cerebral ischemic attack, unspecified
CPT/HCPCS: 93306; 93356; 93880

== ENCOUNTER 2023-01-16 09:12 | Outpatient (REF) | payer MEDICARE, SELFPAY ==
[2023-01-16 09:35] LABS: MANUAL DIFF FLAG NO
[2023-01-16 09:59] LABS: Basophils Percent Auto 0.6 % (0-2); Eosinophils Absolute Auto 0.2 X10*3/uL (0.0-0.4); Hematocrit 39.5 % (37.0-47.0); Hemoglobin 14.4 g/dl (12.0-16.0); Lymphocytes Absolute Auto 1.5 X10*3/uL (1.2-4.9); Lymphocytes Percent Auto 30.7 % (20-40); Mean Corpuscular HGB Conc 36.5 g/dl (31.0-35.0); Mean Corpuscular Hemoglobin 31.3 pg (27.0-33.0); Mean Corpuscular Volume 85.9 fL (80.0-98.0); Mean Platelet Volume 9.1 fL (9.4-12.3); Monocytes Absolute Auto 0.3 X10*3/uL (0.1-1.2); Monocytes Percent Auto 6.7 % (2-11); Neutrophils Absolute Auto 2.7 x10*3/uL (2.0-8.3); Platelet Count 216 X10*3/uL (160-400); Red Cell Distribution Width 12.2 % (11.0-16.0); White Blood Count 4.8 X10*3/uL (4.8-10.8)
[2023-01-16 10:33] LABS: Alanine Aminotransferase 18 U/L (0-31); Aspartate Amino Transferase 24 U/L (5-31); C Reactive Protein < 0.10 mg/dL (< or = 0.50); Estimated Glomerular Filt Rate > 60
[2023-01-16 11:06] LABS: Erythrocyte Sedimentation Rate 13 MM/HR (0-20)
== END 2023-01-16 09:13 | disposition home or self-care (01) ==
LOC: HO.LAB 09:12
PROVIDERS: PCP Internal Medicine; Visit Provider Internal Medicine Rheumatology
DX: M05.9 Rheumatoid arthritis with rheumatoid factor, unspecified (principal); Z79.899 Other long term (current) drug therapy
CPT/HCPCS: 36415; 82565; 84450; 84460; 85025; 85652; 86140

== ENCOUNTER → 2023-01-23 10:39 | Outpatient (BNVA) | payer MEDICARE, SELFPAY | PROVIDERS: PCP Internal Medicine; Visit Provider Nurse Practitioner Family | DX: M05.9 Rheumatoid arthritis with rheumatoid factor, unspecified (principal); R76.8 Other specified abnormal immunological findings in serum | CPT/HCPCS: 99212 ==

== ENCOUNTER 2023-04-17 09:29 | Outpatient (REF) | payer MEDICARE, SELFPAY ==
[2023-04-17 09:45] LABS: MANUAL DIFF FLAG NO
[2023-04-17 11:02] LABS: Basophils Percent Auto 0.4 % (0-2); Eosinophils Absolute Auto 0.2 X10*3/uL (0.0-0.4); Eosinophils Percent Auto 2.8 % (0-4); Hematocrit 39.2 % (37.0-47.0); Hemoglobin 13.8 g/dl (12.0-16.0); Imm Gran Abs Auto 0.01 X10*3/uL (0.00-0.03); Imm Gran Pct Auto 0.2 % (0.0-0.4); Lymphocytes Absolute Auto 1.2 X10*3/uL (1.2-4.9); Lymphocytes Percent Auto 23.4 % (20-40); Mean Corpuscular HGB Conc 35.2 g/dl (31.0-35.0); Mean Corpuscular Hemoglobin 31.4 pg (27.0-33.0); Mean Corpuscular Volume 89.3 fL (80.0-98.0); Mean Platelet Volume 9.9 fL (9.4-12.3); Monocytes Absolute Auto 0.4 X10*3/uL (0.1-1.2); Monocytes Percent Auto 7.9 % (2-11); Neutrophils Absolute Auto 3.5 x10*3/uL (2.0-8.3); Neutrophils Percent Auto 65.3 % (45-73); Platelet Count 247 X10*3/uL (160-400); Red Blood Count 4.39 X10*6/uL (4.20-5.50); Red Cell Distribution Width 12.5 % (11.0-16.0); White Blood Count 5.3 X10*3/uL (4.8-10.8)
[2023-04-17 11:40] LABS: Erythrocyte Sedimentation Rate 20 MM/HR (0-20)
[2023-04-17 11:56] LABS: Alanine Aminotransferase 19 U/L (0-31); Alkaline Phosphatase 90 U/L (39-117); Anion Gap 13 (12-20); Aspartate Amino Transferase 21 U/L (5-31); Bilirubin Total 0.5 mg/dL (0.0-1.0); Blood Urea Nitrogen 16 mg/dL (9-16); C Reactive Protein 0.22 mg/dL (< or = 0.50); Calcium 9.7 mg/dL (8.4-10.2); Carbon Dioxide 26 mmol/L (22-29); Chloride 106 mmol/L (96-108); Estimated Glomerular Filt Rate > 60; Glucose Random 87 mg/dL (60-115); Potassium 4.6 mmol/L (3.3-5.1); Sodium 140 mmol/L (135-145); Total Protein 6.6 g/dL (6.5-8.0)
== END 2023-04-17 09:30 | disposition home or self-care (01) ==
LOC: HO.LAB 09:29
PROVIDERS: PCP Internal Medicine; Visit Provider Nurse Practitioner Family
DX: M05.9 Rheumatoid arthritis with rheumatoid factor, unspecified (principal)
CPT/HCPCS: 36415; 80053; 85025; 85652; 86140

== ENCOUNTER 2023-06-24 08:51 | Outpatient (AMB) | payer MEDICARE, SELFPAY ==
--- NOTE | 2023-06-24 08:54 | MHC.OFFVIS ---
Intake Vital Signs 06/24/23 08:55 Height 5 ft 5 in Weight 130 lb 4.691 oz BMI 21.7 BP 130/90 H Blood Pressure Location Rt brachial Position Sitting Respiration 15 Pulse 90 Temp 97.5 F Temp Source Temporal Artery Scan Pulse Oximetry (%) 97 Oxygen Delivery Method Room Air Intake Visit Reasons: rhuematoid arthritis Retail Product Demo Specialist Required: No Allergies lisinopril Allergy (Intermediate, Verified 06/24/23 08:59) Cough sarilumab [From Kevzara] Allergy (Intermediate, Verified 06/24/23 08:59) rash tocilizumab [From Actemra] Allergy (Intermediate, Verified 06/24/23 08:59) Rash nitrofurantoin [Macrobid] Allergy (Unknown, Verified 06/24/23 08:59) UNKNOWN simvastatin Adverse Reaction (Severe, Verified 06/24/23 08:59) ABD PAIN Medication List - Last Reconciled 06/24/23 by Rosemarie Bravo RN albuterol sulfate 90 mcg/actuation (ProAir HFA) 2 puffs inhalation Q6H PRN ascorbate calcium (vitamin C) 500 mg PO DAILY cholecalciferol (vitamin D3) 25 mcg PO DAILY cyanocobalamin (vitamin B-12) 1,000 mcg PO DAILY estradiol patches transdermal lactobacillus combination no.9 (Adult 50 Plus Probiotic) 4,000 mmu cells PO DAILY leflunomide 20 mg PO DAILY losartan 25 mg PO DAILY medroxyprogesterone 5 mg PO DAILY multivitamin 1 tab PO DAILY multivitamin with minerals (Hair,Skin and Nails tablet) 1 tab PO DAILY HPI HPI Comments History of Present Illness Details The patient returns for evaluation of her rheumatoid arthritis. She had last seen [facility] in January. She says joints are doing fairly well. She remains on leflunomide 20 mg daily and denies any side effects with that medication. She does have some occasional use of ibuprofen that she uses when she has got more pain. Most the time this is because of stiffness or pain in the neck. [facility] Medical History Asthma Degenerative disc disease Dysuria Elevated blood pressure reading Hepatitis B core antibody positive Hypercholesterolemia Palpitations Rheumatoid arthritis Seropositive rheumatoid arthritis Surgical History History of bilateral tubal ligation S/P breast lumpectomy Family History Father Cardiovascular disease Mother No problems noted. Son Throat cancer Social History Housing: House Alcohol intake: never Patient Tobacco Use Status: Former Tobacco user Tobacco use type: Cigarette e-Cigarette/Vaping Use: Never Used Second Hand Smoke Exposure: No service: No Current occupational status: retired Cognitive needs: No Hearing needs: No Vision needs: No Review of Systems Const Details: Negative for appetite change, weight change, fever, chills, malaise and fatigue Eyes Details: Negative for vision change, dry eyes,headaches and dizziness Card Details: Negative chest pain, edema and syncope Resp Details: Negative for SOB, cough and wheezing GI Details: Negative indigestion/heartburn, nausea, abdominal pain, bowel changes, diarrhea, constipation and bloody stool. Endo Details: Negative for polyuria and polydypsia Per/Lymph Details: Negative for excessive bruising or bleeding. Physical Exam Vital Signs: Last Vital Signs Temp 97.5 F 06/24/23 08:55 Pulse 90 06/24/23 08:55 Resp 15 06/24/23 08:55 BP 130/90 H 06/24/23 08:55 Pulse Ox 97 06/24/23 08:55 Oxygen Delivery Method Room Air 06/24/23 08:55 BMI result Body Mass Index 21.7 APPEARANCE: Patient in no acute distress EYES no redness, pupils equal and reactive to light, eyelids normal EXTREMITIES: No edema, no calf tenderness, normal peripheral pulses. JOINT EXAM: Cervical Spine: She has mild pain with extremes of normal range of motion. There is some slight posterior cervical muscle tenderness. Thoracic Spine:? No scoliosis.? No tenderness on palpation. Lumbar Spine:? Alignment normal.? Full range of motion without pain, no tenderness. Hands:? Right: Slight bony enlargement without tenderness at the base of the thumb. There is some slight nontender thickening at the 1st 3 MCP and the 2nd and 5th PIP joints. None of these are tender. There is some nontender bony enlargement at the 2nd DIP. There is no flexor tendon triggering, thenar atrophy or sensory loss. Left: Moderate bony enlargement with mild tenderness at the base of the thumb. There is also some hyperextension at the thumb MCP. That area is slightly tender. There is some slight thickening in the 2nd, 3rd and 5th MCPs without tenderness. There is mild bony thickening without tenderness at the 2nd 3rd PIP joints. There is some mild thenar atrophy but no sensory loss. Wrists:? Normal pain-free range of motion without tenderness, swelling, increased warmth or erythema. Elbows: Normal pain-free range of motion without tenderness, swelling, increased warmth or erythema. Shoulders:? Full range of motion without pain. No tenderness, weakness, swelling, increased warmth or erythema. Hips:? Full range of motion without pain. Hip bursa: No tenderness. Knees:? Normal pain-free range of motion without tenderness, swelling, increased warmth or erythema.? There is no effusion or crepitation Ankles:? Normal pain-free range of motion without tenderness, swelling, increased warmth or erythema. Feet: Right: Mild bony enlargement at the 1st MTP joint. There is some slight tenderness and hammertoe deformities at the 3rd and 4th toes. No breaks in the skin. No redness or soft tissue swelling. Left: Mild nontender bony enlargement at the 1st MTP joint. Other joints have normal pain-free range of motion without tenderness, swelling, increased warmth or erythema. ?? Results Reviewed Results Reviewed: Laboratory Tests 04/17/23 04/17/23 04/17/23 09:43 09:43 09:43 WBC 5.3 Hgb 13.8 ESR 20 Creatinine 0.77 AST 21 ALT 19 Assessment & Plan Assessment & Plan (1) long term care administrator use of drug: Code(s): Z79.899 - Other long term care administrator (current) drug therapy (2) Osteoarthritis of hands, bilateral: Code(s): M19.041 - Primary osteoarthritis, right hand; M19.042 - Primary osteoarthritis, left hand (3) Seropositive rheumatoid arthritis: Comment: Enbrel: 08/2014- 05/2015 Humira : Dates unknown Plaquenil: 06/2017 GI timmy Kerr: 04/2018- 12/2018 high co-pay, did not feel better on the medicine. Kevzara: 01/2021 - 02/2021 rash Actemra: 05/2021 rash Arava :07/2019- present Code(s): M05.9 - Rheumatoid arthritis with rheumatoid factor, unspecified Plan Rheumatoid arthritis with I think good control of synovitis with current treatment. She last had lab work in April so I asked her to get some this week to monitor her leflunomide use. She does have some findings of osteoarthritis in the hands and the 1st MTP bilaterally. Those are not all that symptomatic presently however. Assuming the labs are okay she will continue with the leflunomide as above. We would recheck her labs before next visit in 3-4 months. Coding Level of Care Code Est Pt Level 3 (10617) Diagnoses long term care administrator use of drug Z79.899 Osteoarthritis of hands, bilateral M19.041; M19.042 Seropositive rheumatoid arthritis M05.9
[2023-06-24 08:55] VITALS: BP 130/90; PULSE 90; RESP 15; TEMP 36.4; O2SAT 97; BMI 21.7
== END 2023-06-24 09:53 | disposition home or self-care (01) ==
PROVIDERS: PCP Internal Medicine; Visit Provider Internal Medicine Rheumatology
DX: M05.89 Other rheumatoid arthritis with rheumatoid factor of multiple sites (principal); Z79.899 Other long term (current) drug therapy; M19.041 Primary osteoarthritis, right hand; M19.042 Primary osteoarthritis, left hand
CPT/HCPCS: 99213

== ENCOUNTER → 2023-06-24 08:51 | Outpatient (BNVA) | payer MEDICARE, SELFPAY | PROVIDERS: PCP Internal Medicine; Visit Provider Internal Medicine Rheumatology | DX: M19.041 Primary osteoarthritis, right hand (principal); M19.042 Primary osteoarthritis, left hand; M05.9 Rheumatoid arthritis with rheumatoid factor, unspecified; Z79.899 Other long term (current) drug therapy | CPT/HCPCS: 99212 ==

== ENCOUNTER 2023-06-25 09:12 | Outpatient (REF) | payer MEDICARE, SELFPAY ==
[2023-06-25 09:34] LABS: MANUAL DIFF FLAG NO
[2023-06-25 10:19] LABS: Basophils Percent Auto 0.4 % (0-2); Eosinophils Absolute Auto 0.2 X10*3/uL (0.0-0.4); Eosinophils Percent Auto 3.2 % (0-4); Hematocrit 40.4 % (37.0-47.0); Hemoglobin 14.5 g/dl (12.0-16.0); Imm Gran Abs Auto 0.01 X10*3/uL (0.00-0.03); Imm Gran Pct Auto 0.2 % (0.0-0.4); Lymphocytes Absolute Auto 1.2 X10*3/uL (1.2-4.9); Lymphocytes Percent Auto 24.1 % (20-40); Mean Corpuscular HGB Conc 35.9 g/dl (31.0-35.0); Mean Corpuscular Volume 89.2 fL (80.0-98.0); Mean Platelet Volume 9.4 fL (9.4-12.3); Monocytes Absolute Auto 0.5 X10*3/uL (0.1-1.2); Monocytes Percent Auto 9.3 % (2-11); Neutrophils Absolute Auto 3.1 x10*3/uL (2.0-8.3); Neutrophils Percent Auto 62.8 % (45-73); Platelet Count 254 X10*3/uL (160-400); Red Blood Count 4.53 X10*6/uL (4.20-5.50); Red Cell Distribution Width 12.5 % (11.0-16.0)
[2023-06-25 10:40] LABS: Alanine Aminotransferase 19 U/L (0-31); Aspartate Amino Transferase 22 U/L (5-31); C Reactive Protein 0.26 mg/dL (< or = 0.50); Estimated Glomerular Filt Rate > 60
[2023-06-25 11:02] LABS: Erythrocyte Sedimentation Rate 20 MM/HR (0-20)
== END 2023-06-25 09:13 | disposition home or self-care (01) ==
LOC: HO.LAB 09:12
PROVIDERS: PCP Internal Medicine; Visit Provider Internal Medicine Rheumatology
DX: M05.9 Rheumatoid arthritis with rheumatoid factor, unspecified (principal); Z79.899 Other long term (current) drug therapy
CPT/HCPCS: 36415; 82565; 84450; 84460; 85025; 85652; 86140

== ENCOUNTER 2023-07-22 12:24 | Outpatient (AMB) | payer MEDICARE, SELFPAY ==
[2023-07-22 12:36] VITALS: BP 136/74; PULSE 75; O2SAT 97; BMI 21.6
--- NOTE | 2023-07-22 12:36 | MHC.PC.OV ---
Vital Signs 07/22/23 12:36 Height 5 ft 5 in Weight 130 lb BMI 21.6 BP 136/74 Blood Pressure Location Lt brachial Position Sitting Pulse 75 Pulse Source Pulse Oximeter Pulse Oximetry (%) 97 Oxygen Delivery Method Room Air Intake Visit Reasons: PE Allergies lisinopril Allergy (Intermediate, Verified 07/22/23 12:49) Cough sarilumab [From Kevzara] Allergy (Intermediate, Verified 07/22/23 12:49) rash tocilizumab [From Actemra] Allergy (Intermediate, Verified 07/22/23 12:49) Rash nitrofurantoin [Macrobid] Allergy (Unknown, Verified 07/22/23 12:49) UNKNOWN simvastatin Adverse Reaction (Severe, Verified 07/22/23 12:49) ABD PAIN Medication List - Last Reconciled 07/22/23 by Juni Crews MD albuterol sulfate 90 mcg/actuation (ProAir HFA) 2 puffs inhalation Q6H PRN ascorbate calcium (vitamin C) 500 mg PO DAILY cholecalciferol (vitamin D3) 25 mcg PO DAILY cyanocobalamin (vitamin B-12) 1,000 mcg PO DAILY estradiol patches transdermal lactobacillus combination no.9 (Adult 50 Plus Probiotic) 4,000 mmu cells PO DAILY leflunomide 20 mg PO DAILY losartan 25 mg PO DAILY medroxyprogesterone 5 mg PO DAILY multivitamin 1 tab PO DAILY multivitamin with minerals (Hair,Skin and Nails tablet) 1 tab PO DAILY Tobacco use date assessed: 12/19/22 Fall risk assessment: No Falls in past year Last assessed Fall Risk: 07/22/23 Dental Screening Dental Screen Date: 07/22/23 Did you have a dental visit in the last 12 months?: Yes Did you have a dental problem in the last 6 months where you did not have access to dental care?: No Was dental information given to patient?: Patient has dentist HPI PE HPI Details 72-year-old female with hypertension, hypercholesterolemia and rheumatoid arthritis coming in for physical exam. Last seen in December 2019. Colonoscopy is up-to-date, mammogram due bone density due. Review of the notes follows up with Rheumatology currently on Arava patient does have osteoarthritis of the hand also. goes to the bathroom 5 x a day but is formed [facility] Medical History Asthma Degenerative disc disease Dysuria Elevated blood pressure reading Hepatitis B core antibody positive Hypercholesterolemia Palpitations Rheumatoid arthritis Seropositive rheumatoid arthritis Surgical History History of bilateral tubal ligation S/P breast lumpectomy Family History (Updated 07/22/23 @ 12:50 by Martine Laboy CMA) Father Cardiovascular disease Mother No problems noted. Son Throat cancer Social History (Updated 07/22/23 @ 13:06 by Juni Crews MD) Housing: House Alcohol intake: never Patient Tobacco Use Status: Former Tobacco user Tobacco use type: Cigarette Years Smoked: 27 years old quit e-Cigarette/Vaping Use: Never Used Second Hand Smoke Exposure: No service: No Current occupational status: retired Cognitive needs: No Hearing needs: No Vision needs: No Questionnaire PHQ-9 Over the last 2 weeks, how often have you been bothered by any of the following problems? 1. Little interest or pleasure in doing things: several days 2. Feeling down, depressed, or hopeless: several days 3. Trouble falling or staying asleep, or sleeping too much: several days 4. Feeling tired or having little energy: several days 5. Poor appetite or overeating: not at all 6. Feeling bad about yourself - or that you are a failure or have let yourself or your family down: not at all 7. Trouble concentrating on things, such as reading the newspaper or watching television: not at all 8. Moving or speaking so slowly that other people could have noticed. Or the opposite - being so fidgety or restless that you have been moving around a lot more than usual: not at all 9. Thoughts that you would be better off or of hurting yourself in some way: not at all Total score: 4 Depression Screening Interpretation: Negative Source: Developed by Drs. Jt Regaldao, Sharon Cherry, Nic Rogel and colleagues, with an educational aylin from [email or web address]. Thrive Questionnaire Date Thrive assessed: 12/19/22 AUDIT C Alcohol Use Questionnaire (AUDIT-C) 1. How often do you have a drink containing alcohol?: Never 3. How often do you have six or more drinks on one occasion?: Never Total Score: 0 Score Reviewed/Action Taken: No JULIANE-7 AMB Questionnaire JULIANE-7 Date JULIANE - 7 assessed: 12/19/22 Source: Developed by Drs. Jt Regalado, Sharon Cherry, Nic Rogel and colleagues, with an educational aylin from [email or web address]. Review of Systems Const Denies poor appetite and Denies weakness Eyes Denies no additional complaints ENT Reports Normal hearing present, Denies dizziness, Denies nasal congestion, Denies tinnitus and Denies sore throat Card Denies chest pain, Denies syncope, Denies rapid heart rate and Denies dyspnea Resp Denies cough and Denies dyspnea GI Denies change in stool character, Reports constipation, Denies diarrhea, Denies nausea and Denies vomiting Denies urinary frequency, Denies difficulty voiding and Denies dysuria Neuro Reports Normal hearing present, Denies confusion, Denies dizziness, Denies syncope and Denies weakness Psych Denies confusion Physical exam (Primary Care) Vital Signs: Last Vital Signs Pulse 75 07/22/23 12:36 BP 136/74 07/22/23 12:36 Pulse Ox 97 07/22/23 12:36 Oxygen Delivery Method Room Air 07/22/23 12:36 BMI result Body Mass Index 21.6 Tobacco/Smoking Status: Tobacco use Status Tobacco use date assessed 12/19/22 07/22/23 12:48 Patient Tobacco Use Status Former Tobacco user 07/22/23 12:48 Tobacco use type Cigarette 07/22/23 12:48 e-Cigarette/Vaping Use Never Used 07/22/23 12:48 PHQ-9: PHQ-9 Score PHQ-9: Total score 4 07/22/23 12:55 Depression Screening Interpretation: Negative Thrive Assessment: Date of Thrive Assessment Date Thrive assessed 12/19/22 07/22/23 12:48 Const General: No confusion Orientation/consciousness: No confusion HENMT Head: Yes normocephalic Ears: external ears normal and TM's normal bilaterally Face and sinus: Yes normal facial exam Mouth: moist mucous membranes Throat: Yes tonsils normal Eyes Conjunctivae: conjunctivae normal Pupils: Equal, round and reactive pupils present and Pupil accommodation reflex normal Direct Ophthalmoscopy: normal light reflex Neck Neck: No lymphadenopathy Thyroid: Thyroid normal Chest Chest palpation & inspection: normal inspection of the chest Resp Effort & Inspection: normal respiratory effort and no audible wheezes Auscultation: clear to auscultation bilaterally, no crackles, no wheezes and lung sounds not diminished Cardio Rate: regular rate Rhythm: regular rhythm Peripheral pulses: radial pulses present and dorsalis pedis present GI Palpation (GI): no masses Auscultation: normal bowel sounds and normoactive bowel sounds Rectal Exam - Female: deferred Skin General skin exam: no rashes or lesions noted Rashes: no rashes Neuro General: No confusion Cranial nerves: Yes Equal, round and reactive pupils present and Yes Normal hearing present Cognition (Neuro): normal cognition Gait exam (Neuro): Normal gait present Motor exam (neuro): 5/5 motor strength present throughout Deep tendon reflexes (DTR's): Right brachioradialis reflex intensity grade: 2+, Left brachioradialis reflex intensity grade: 2+, Right patellar reflex intensity grade: 2+ and Left patellar reflex intensity grade: 2+ Extrem General: No edema Assessment and Plan Assessment & Plan (1) Annual physical exam: Code(s): Z00.00 - Encounter for general adult medical examination without abnormal findings (2) Seropositive rheumatoid arthritis: Comment: Enbrel: 08/2014- 05/2015 Humira : Dates unknown Plaquenil: 06/2017 GI upset Xeljanz: 04/2018- 12/2018 high co-pay, did not feel better on the medicine. Kevzara: 01/2021 - 02/2021 rash Actemra: 05/2021 rash Arava :07/2019- present Code(s): M05.9 - Rheumatoid arthritis with rheumatoid factor, unspecified Plan: Continue to follow-up with Rheumatology (3) Osteoarthritis of hands, bilateral: Code(s): M19.041 - Primary osteoarthritis, right hand; M19.042 - Primary osteoarthritis, left hand Plan: Keep active (4) Hypertension: Code(s): I10 - Essential (primary) hypertension Plan: Continue with blood pressure medication. Decrease salt intake and exercise patient is taking losartan 25 mg once a day (5) Hypercholesterolemia: Code(s): E78.00 - Pure hypercholesterolemia, unspecified Plan: Avoid fried foods, chicken skin, eggs, butter margarine, pastries and meat. Be it pork or beef they have a lot of cholesterol LDL goal of less than 130 and triglyceride of less than 150 (6) Mild asthma: Comment: PFT 2012 Code(s): J45.909 - Unspecified asthma, uncomplicated Plan: Continue with using the inhaler as needed (7) Dysphagia: Code(s): R13.10 - Dysphagia, unspecified Plan: decline testing (8) Impacted cerumen of both ears: Code(s): H61.23 - Impacted cerumen, bilateral (9) Ear noise/buzzing: Code(s): H93.19 - Tinnitus, unspecified ear Orders: Orders Vitamin B12 and Folate 2 Months E78.00 - Pure hypercholesterolemia, unspecified Comprehensive Met. Panel 2 Months E78.00 - Pure hypercholesterolemia, unspecified Lipid Panel 2 Months E78.00 - Pure hypercholesterolemia, unspecified Free T4 (Free Thyroxine) 2 Months E78.00 - Pure hypercholesterolemia, unspecified Thyroid Stimulating Hormone 2 Months E78.00 - Pure hypercholesterolemia, unspecified Vitamin D 25-OH Total 2 Months E78.00 - Pure hypercholesterolemia, unspecified Complete Blood Count Auto Diff 2 Months E78.00 - Pure hypercholesterolemia, unspecified Erythrocyte Sedimentation Rate 2 Months E78.00 - Pure hypercholesterolemia, unspecified XR DEXA axial skeleton Today M05.9 - Rheumatoid arthritis with rheumatoid factor, unspecified, M81.0 - Age-related osteoporosis without current pathological fracture Referrals Ear/Nose/Throat Referral H61.23 - Impacted cerumen, bilateral, H93.19 - Tinnitus, unspecified ear Coding Level of Care Code Est Pt Prev Care >65y(78918) Diagnoses Annual physical exam Z00.00 Seropositive rheumatoid arthritis M05.9 Osteoarthritis of hands, bilateral M19.041; M19.042 Hypertension I10 Hypercholesterolemia E78.00 Mild asthma J45.909 Dysphagia R13.10 Impacted cerumen of both ears H61.23 Ear noise/buzzing H93.19 Additional Codes PHQ-9 - 16869 - PHQ-9 Billing: Y ([id number])
== END 2023-07-22 13:29 | disposition home or self-care (01) ==
PROVIDERS: PCP Internal Medicine; Visit Provider Internal Medicine
DX: Z00.00 Encounter for general adult medical examination without abnormal findings (principal); M05.9 Rheumatoid arthritis with rheumatoid factor, unspecified; I10 Essential (primary) hypertension; J45.909 Unspecified asthma, uncomplicated; M19.041 Primary osteoarthritis, right hand; M19.042 Primary osteoarthritis, left hand; E78.00 Pure hypercholesterolemia, unspecified; R13.10 Dysphagia, unspecified; H61.23 Impacted cerumen, bilateral
CPT/HCPCS: 99397

== ENCOUNTER 2023-07-31 13:54 | Outpatient (REF) | payer MEDICARE, SELFPAY ==
--- NOTE | ~2023-07-31 | MM_ITS ---
EXAMINATION: BONE DENSITOMETRY CLINICAL INDICATION: Age-related osteoporosis without current pathological fracture. COMPARISON: Previous BD dated 06/26/2017 and baseline BD dated 05/15/2009. TECHNIQUE: Using a [employer] DXA System (software version: 13.1) manufactured by [employer], dual-energy x-ray absorptiometry was performed of the lumbar spine and left hip. The images are of good technical quality. Summary results are attached. FINDINGS: LEFT FEMUR, NECK: Current: BMD 0.947 g/cm2, Z-score 1.2, T-score -0.7, normal. Prior: BMD 0.943 g/cm2. Baseline: BMD 0.959 g/cm2. LEFT FEMUR, TOTAL: Current: BMD 1.015 g/cm2, Z-score 1.8, T-score 0.1, normal, 1.2% decrease from previous, 2.5% decrease from baseline (<5% change is not significant). Prior: BMD 1.027 g/cm2. Baseline: BMD 1.041 g/cm2. AP SPINE L1-L2 (excluding L3 and L4): The data of L1-L4 has been changed to exclude the L3 and L4 vertebral bodies, because degenerative sclerosis at these levels may cause overestimation of lumbar spine density. Current: BMD 1.102 g/cm2, Z-score 1.4, T-score -0.5, normal, 14.8% decrease from previous, 4.7% increase from baseline (<5% change is not significant). Prior: BMD 1.294 g/cm2. Baseline: BMD 1.053 g/cm2. IDENTIFIED RISK FACTORS: Menopause, osteoporosis, rheumatoid arthritis. HISTORY OF FRACTURE: None listed. MEDICATIONS: Vitamin D, ERT/SERMS. MM/XR DEXA axial skeleton IMPRESSION: 1. DIAGNOSIS: Normal bone density based on the lowest T-score value of -0.7 in the femoral neck applying World Health Organization criteria. 2. 10-YEAR FRACTURE RISK PREDICTION, FRAX: According to the guidelines, FRAX calculation should only be performed on patients in the osteopenia bone density category. Therefore, FRAX was not performed on this patient. 3. Treatment Recommendations: NOF guidelines recommend consideration for treatment in postmenopausal women and men age 50 and older presenting with the following: -A hip or vertebral (clinical or morphometric) fracture. -T-score less than or equal to -2.5 at the femoral neck or spine after appropriate evaluation to exclude secondary causes. -Low bone mass at the hip or spine and a 10-year fracture probability by FRAX of greater than or equal to 3% for hip fracture or greater than or equal to 20% for major osteoporotic fracture based on the [place] adapted WHO algorithm. 4. Other Recommendations: All treatment decisions require clinical judgment and consideration of individual patient factors, including patient preferences, comorbidities, previous drug use, risk factors not captured in the FRAX model (e.g. frailty, falls, vitamin D deficiency, increased bone turnover, interval significant decline in bone density) and possible under or overestimation of fracture risk by FRAX. FUTURE SCAN RECOMMENDATION: People with diagnosed cases of osteoporosis or at high risk for fracture should have regular bone mineral density tests. For patients eligible for Medicare, routine testing is allowed once every 2 years. The testing frequency can be increased to one year for patients who have rapidly progressing disease, those who are receiving or discontinuing medical therapy to restore bone mass, or have additional risk factors.
== END 2023-07-31 13:55 | disposition home or self-care (01) ==
LOC: HO.MAMMO 13:54
PROVIDERS: PCP Internal Medicine; Visit Provider Internal Medicine
DX: Z13.820 Encounter for screening for osteoporosis (principal); M81.0 Age-related osteoporosis without current pathological fracture; M05.9 Rheumatoid arthritis with rheumatoid factor, unspecified; Z78.0 Asymptomatic menopausal state
CPT/HCPCS: 77080

== ENCOUNTER → 2023-07-31 14:00 | Outpatient (BNV) | payer MEDICARE, SELFPAY | PROVIDERS: PCP Internal Medicine; Visit Provider Radiology Diagnostic Radiology | DX: Z78.0 Asymptomatic menopausal state (principal) | CPT/HCPCS: 77080 ==

== ENCOUNTER 2023-11-03 10:28 | Outpatient (REF) | payer MEDICARE, SELFPAY ==
[2023-11-03 10:52] LABS: MANUAL DIFF FLAG NO
[2023-11-03 11:36] LABS: Basophils Percent Auto 0.5 % (0-2); Eosinophils Absolute Auto 0.2 X10*3/uL (0.0-0.4); Eosinophils Percent Auto 3.7 % (0-4); Hematocrit 40.7 % (37.0-47.0); Hemoglobin 14.3 g/dl (12.0-16.0); Imm Gran Abs Auto 0.02 X10*3/uL (0.00-0.03); Imm Gran Pct Auto 0.3 % (0.0-0.4); Lymphocytes Absolute Auto 1.5 X10*3/uL (1.2-4.9); Lymphocytes Percent Auto 22.9 % (20-40); Mean Corpuscular HGB Conc 35.1 g/dl (31.0-35.0); Mean Corpuscular Hemoglobin 31.4 pg (27.0-33.0); Mean Corpuscular Volume 89.3 fL (80.0-98.0); Mean Platelet Volume 9.7 fL (9.4-12.3); Monocytes Absolute Auto 0.6 X10*3/uL (0.1-1.2); Monocytes Percent Auto 9.4 % (2-11); Neutrophils Absolute Auto 4.1 x10*3/uL (2.0-8.3); Neutrophils Percent Auto 63.2 % (45-73); Platelet Count 239 X10*3/uL (160-400); Red Blood Count 4.56 X10*6/uL (4.20-5.50); Red Cell Distribution Width 12.7 % (11.0-16.0); White Blood Count 6.5 X10*3/uL (4.8-10.8)
[2023-11-03 12:10] LABS: Erythrocyte Sedimentation Rate 23 MM/HR (0-20)
[2023-11-03 12:28] LABS: Alanine Aminotransferase 17 U/L (0-31); Albumin Level 4.1 g/dL (3.5-5.0); Alkaline Phosphatase 91 U/L (39-117); Anion Gap 11 (12-20); Aspartate Amino Transferase 22 U/L (5-31); Bilirubin Total 0.4 mg/dL (0.0-1.0); Blood Urea Nitrogen 15 mg/dL (9-16); Calcium 9.9 mg/dL (8.4-10.2); Carbon Dioxide 28 mmol/L (22-29); Chloride 106 mmol/L (96-108); Cholesterol 233 mg/dL (<200); Estimated Glomerular Filt Rate > 60; Glucose Random 84 mg/dL (60-115); HDL Cholesterol 48 mg/dL (>40); LDL Cholesterol Calculated 161 mg/dL (<100); Potassium 4.4 mmol/L (3.3-5.1); Sodium 141 mmol/L (135-145); Total Protein 7.1 g/dL (6.5-8.0); Triglycerides 123 mg/dL (<150)
[2023-11-03 13:15] LABS: Free T4 (Free Thyroxine) 0.82 ng/dL (0.71-1.85); Thyroid Stimulating Hormone 1.46 uIU/mL (0.32-4.0); Vitamin D 25-OH Total 66.4 ng/mL (>30)
[2023-11-03 13:21] LABS: Folate 17.3 ng/mL (> or = 4.0); Vitamin B12 1326 pg/mL (200-900)
== END 2023-11-03 10:29 | disposition home or self-care (01) ==
LOC: HO.LAB 10:28
PROVIDERS: PCP Internal Medicine; Visit Provider Internal Medicine Rheumatology
DX: E78.00 Pure hypercholesterolemia, unspecified (principal)
CPT/HCPCS: 36415; 80053; 80061; 82306; 82607; 82746; 84439; 84443; 85025; 85652

== ENCOUNTER 2023-11-04 09:07 | Outpatient (AMB) | payer MEDICARE, SELFPAY ==
--- NOTE | 2023-11-04 09:28 | A.OFFVIS_ITS ---
Intake Vital Signs 11/04/23 09:36 Height 5 ft 5 in Weight 128 lb 4.944 oz BMI 21.3 BP 108/70 Blood Pressure Location Lt brachial Position Sitting Pulse 91 Pulse Source Pulse Oximeter Temp 97.2 F Temp Source Skin Pulse Oximetry (%) 96 Oxygen Delivery Method Room Air Intake Visit Reasons: ra Intake Note: Patient last seen 06/24/23, presents today for follow up and test results. 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 Required: No Accompanied by: Self / Same As Patient Allergies lisinopril Allergy (Intermediate, Verified 11/04/23 09:39) Cough sarilumab [From Kevzara] Allergy (Intermediate, Verified 11/04/23 09:39) rash tocilizumab [From Actemra] Allergy (Intermediate, Verified 11/04/23 09:39) Rash nitrofurantoin [Macrobid] Allergy (Unknown, Verified 11/04/23 09:39) UNKNOWN simvastatin Adverse Reaction (Severe, Verified 11/04/23 09:39) ABD PAIN Medication List - Last Reconciled 11/04/23 by Zeyad Domínguez MD albuterol sulfate 90 mcg/actuation (ProAir HFA) 2 puffs inhalation Q6H PRN ascorbate calcium (vitamin C) 500 mg PO DAILY cholecalciferol (vitamin D3) 25 mcg PO DAILY cyanocobalamin (vitamin B-12) 1,000 mcg PO DAILY estradiol patches transdermal lactobacillus combination no.9 (Adult 50 Plus Probiotic) 4,000 mmu cells PO DAILY leflunomide 20 mg PO DAILY losartan 25 mg PO DAILY medroxyprogesterone 5 mg PO DAILY multivitamin 1 tab PO DAILY multivitamin with minerals (Hair,Skin and Nails tablet) 1 tab PO DAILY HPI HPI Comments 2 History of Present Illness Details The patient returns for evaluation of her rheumatoid arthritis. She remains on leflunomide 20 mg daily. She notes occasional discomfort in the toes where she has some hammertoe deformities. Otherwise the joints have not been painful. She does not seem to have any problems with the leflunomide. [facility] Medical History Asthma Degenerative disc disease Dysuria Elevated blood pressure reading Hepatitis B core antibody positive Hypercholesterolemia Palpitations Rheumatoid arthritis Seropositive rheumatoid arthritis Surgical History S/P breast lumpectomy History of bilateral tubal ligation Family History Father Cardiovascular disease Mother No problems noted. Son Throat cancer Social History Housing: House Alcohol intake: never Patient Tobacco Use Status: Former Tobacco user Tobacco use type: Cigarette Years Smoked: 27 years old quit e-Cigarette/Vaping Use: Never Used Second Hand Smoke Exposure: No service: No Current occupational status: retired Cognitive needs: No Hearing needs: No Vision needs: No Review of Systems Const Details: Negative for appetite change, weight change, fever, chills, malaise and fatigue Eyes Details: Negative for vision change, dry eyes,headaches and dizziness Card Details: Negative chest pain, edema and syncope Resp Details: Negative for SOB, cough and wheezing GI Details: Negative indigestion/heartburn, nausea, abdominal pain, bowel changes, diarrhea, constipation and bloody stool. Endo Details: Negative for polyuria and polydypsia Per/Lymph Details: Negative for excessive bruising or bleeding. Physical Exam Vital Signs: Last Vital Signs Temp 97.2 F 11/04/23 09:36 Pulse 91 11/04/23 09:36 BP 108/70 11/04/23 09:36 Pulse Ox 96 11/04/23 09:36 Oxygen Delivery Method Room Air 11/04/23 09:36 BMI result Body Mass Index 21.3 APPEARANCE: Patient in no acute distress EYES no redness, pupils equal and reactive to light, eyelids normal EXTREMITIES: No edema, no calf tenderness, normal peripheral pulses. JOINT EXAM: Cervical Spine: She has mild pain with extremes of normal range of motion. There is some slight posterior cervical muscle tenderness. Thoracic Spine:? No scoliosis.? No tenderness on palpation. Lumbar Spine:? Alignment normal.? Full range of motion without pain, no tenderness. Hands:? Right: Slight bony enlargement without tenderness at the base of the thumb. There is some slight nontender thickening at the 1st 3 MCP and the 2nd and 5th PIP joints. None of these are tender. There is some nontender bony enlargement at the 2nd DIP. There is no flexor tendon triggering, thenar atrophy or sensory loss. Left: Moderate bony enlargement with mild tenderness at the base of the thumb. There is also some hyperextension at the thumb MCP. That area is slightly tender. There is some slight thickening in the 2nd, 3rd and 5th MCPs without tenderness. There is mild bony thickening without tenderness at the 2nd 3rd PIP joints. There is some mild thenar atrophy but no sensory loss. Wrists:? Normal pain-free range of motion without tenderness, swelling, increased warmth or erythema. Elbows: Normal pain-free range of motion without tenderness, swelling, increased warmth or erythema. Shoulders:? Full range of motion without pain. No tenderness, weakness, swelling, increased warmth or erythema. Hips:? Full range of motion without pain. Hip bursa: No tenderness. Knees:? Normal pain-free range of motion without tenderness, swelling, increased warmth or erythema.? There is no effusion or crepitation Ankles:? Normal pain-free range of motion without tenderness, swelling, increased warmth or erythema. Feet: Right: Mild bony enlargement at the 1st MTP joint. There is some slight tenderness and hammertoe deformities at the 3rd and 4th toes. No breaks in the skin. No redness or soft tissue swelling. Left: Mild nontender bony enlargement at the 1st MTP joint. The dorsum of the 3rd and 4th toes are also slightly tender and they have some hammertoe deformity. Other joints have normal pain-free range of motion without tenderness, swelling, increased warmth or erythema. 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 Kevzara: 01/2021 - 02/2021 rash Actemra: 05/2021 rash Arava :07/2019- present Code(s): M05.9 - Rheumatoid arthritis with rheumatoid factor, unspecified Plan Rheumatoid arthritis with good control of synovitis with current regimen. There are some findings of osteoarthritis in the hands particularly at the base of the thumbs. These are not particularly symptomatic. She has some hammertoe deformities giving her some mechanical pressure over the tops of the toes which could be causing some toe pain. The lab work looked good so I think we can continue with current dose of leflunomide. We will recheck the lab see for her next visit in about 4 months. Orders: Orders Erythrocyte Sedimentation Rate 1 Month M05.9 - Rheumatoid arthritis with rheumatoid factor, unspecified C Reactive Protein Today M05.9 - Rheumatoid arthritis with rheumatoid factor, unspecified Alanine Aminotransferase Today M05.9 - Rheumatoid arthritis with rheumatoid factor, unspecified, Z79.899 - Other terminal block assembler (current) drug therapy Creatinine Today M05.9 - Rheumatoid arthritis with rheumatoid factor, unspecified, Z79.899 - Other terminal block assembler (current) drug therapy Aspartate Amino Transferase Today M05.9 - Rheumatoid arthritis with rheumatoid factor, unspecified, Z79.899 - Other terminal block assembler (current) drug therapy Complete Blood Count Auto Diff 1 Month M05.9 - Rheumatoid arthritis with rheumatoid factor, unspecified, Z79.899 - Other terminal block assembler (current) drug therapy Medications: Refilled leflunomide 20 mg PO DAILY 60 tabs 2RF M05.9 - Rheumatoid arthritis with rheumatoid factor, unspecified Coding Level of Care Code Est Pt Level 3 (77490) Diagnoses Osteoarthritis of hands, bilateral M19.041; M19.042 predatory animal exterminator use of drug Z79.899 Seropositive rheumatoid arthritis M05.9
[2023-11-04 09:36] VITALS: BP 108/70; PULSE 91; TEMP 36.2; O2SAT 96; BMI 21.3
== END 2023-11-04 10:06 | disposition home or self-care (01) ==
PROVIDERS: PCP Internal Medicine; Visit Provider Internal Medicine Rheumatology
DX: M05.79 Rheumatoid arthritis with rheumatoid factor of multiple sites without organ or systems involvement (principal); M19.041 Primary osteoarthritis, right hand; M19.042 Primary osteoarthritis, left hand; Z79.899 Other long term (current) drug therapy
CPT/HCPCS: 99214

== ENCOUNTER → 2023-11-04 09:07 | Outpatient (BNVA) | payer MEDICARE, SELFPAY | PROVIDERS: PCP Internal Medicine; Visit Provider Internal Medicine Rheumatology | DX: M19.041 Primary osteoarthritis, right hand (principal); M19.042 Primary osteoarthritis, left hand; M05.9 Rheumatoid arthritis with rheumatoid factor, unspecified; Z79.899 Other long term (current) drug therapy | CPT/HCPCS: 99212 ==

== ENCOUNTER 2024-01-26 13:21 | Outpatient (AMB) | payer MEDICARE, SELFPAY ==
[2024-01-26 13:24] VITALS: BP 144/80; PULSE 78; O2SAT 98; BMI 21.0
--- NOTE | 2024-01-26 13:24 | A.OFFPC_ITS ---
Vital Signs 01/26/24 13:24 Height 5 ft 5 in Weight 126 lb BMI 21.0 BP 144/80 H Blood Pressure Location Lt brachial Position Sitting Pulse 78 Pulse Source Pulse Oximeter Pulse Oximetry (%) 98 Oxygen Delivery Method Room Air Intake Visit Reasons: 6 month f/u Allergies lisinopril Allergy (Intermediate, Verified 01/26/24 13:25) Cough sarilumab [From Kevzara] Allergy (Intermediate, Verified 01/26/24 13:25) rash tocilizumab [From Actemra] Allergy (Intermediate, Verified 01/26/24 13:25) Rash nitrofurantoin [Macrobid] Allergy (Unknown, Verified 01/26/24 13:25) UNKNOWN simvastatin Adverse Reaction (Severe, Verified 01/26/24 13:25) ABD PAIN Tobacco use date assessed: 01/26/24 Fall risk assessment: No Falls in past year Last assessed Fall Risk: 01/26/24 Dental Screening Dental Screen Date: 01/26/24 Did you have a dental visit in the last 12 months?: Yes Did you have a dental problem in the last 6 months where you did not have access to dental care?: No Was dental information given to patient?: Patient has dentist HPI 6 month f/u HPI Details 73-year-old female with rheumatoid arthr itis, osteoarthritis hypertension hypercholesterolemia asthma coming in for follow-up. Last seen in July 2023. Patient's colonoscopy last done in August 2020. Mammogram is due bone density is up-to-date. 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 Patient has been getting her blood pressure at home and has been mostly 140 above systolic blood pressure. Patient on losartan to 25 mg only discussed on needing to increase it. Discussed the blood work in October showing an elevated cholesterol but patient declined any cholesterol medication. Otherwise no nausea no vomiting no chest pains no shortness a breath no bowel bladder symptoms. [facility] Medical History Asthma Degenerative disc disease Dysuria Elevated blood pressure reading Hepatitis B core antibody positive Hypercholesterolemia Palpitations Rheumatoid arthritis Seropositive rheumatoid arthritis Surgical History S/P breast lumpectomy History of bilateral tubal ligation Family History Father Cardiovascular disease Mother No problems noted. Son Throat cancer Social History Housing: House Alcohol intake: never Patient Tobacco Use Status: Former Tobacco user Tobacco use type: Cigarette Years Smoked: 27 years old quit e-Cigarette/Vaping Use: Never Used Second Hand Smoke Exposure: No service: No Current occupational status: retired Cognitive needs: No Hearing needs: No Vision needs: Yes Questionnaire PHQ-9 Over the last 2 weeks, how often have you been bothered by any of the following problems? 1. Little interest or pleasure in doing things: several days 2. Feeling down, depressed, or hopeless: several days 3. Trouble falling or staying asleep, or sleeping too much: several days 4. Feeling tired or having little energy: several days 5. Poor appetite or overeating: not at all 6. Feeling bad about yourself - or that you are a failure or have let yourself or your family down: not at all 7. Trouble concentrating on things, such as reading the newspaper or watching television: not at all 8. Moving or speaking so slowly that other people could have noticed. Or the opposite - being so fidgety or restless that you have been moving around a lot more than usual: not at all 9. Thoughts that you would be better off or of hurting yourself in some way: not at all Total score: 4 Depression Screening Interpretation: Negative Depression Screening Done: Yes Source: Developed by Drs. Jt Regalado, Sharon Cherry, Nic Rogel and colleagues, with an educational aylin from [employer]. Thrive Questionnaire Date Thrive assessed: 01/26/24 I am a: Patient What is your living situation today?: I have a steady place to live Within the past 12 months, did the food you bought not last and you didn't have the money to get more?: Never true Within the past 12 months, did you worry whether your food would run out before you got money to buy more?: Never true Do you have trouble paying for medicines?: No Do you have trouble getting transportation to medical appointments?: No Do you have trouble paying your heating and electricity bill?: No Do you have trouble taking care of your child, family member or friend?: No Do you have trouble with day-to-day activities such as bathing, preparing meals, shopping, managing finances, etc.?: No Are you currently unemployed and looking for a job?: No Are you interested in more education?: No Currently or been in a relationship where the following occur: no concerns reported THRIVE Score: 0 AUDIT C Alcohol Use Questionnaire (AUDIT-C) 1. How often do you have a drink containing alcohol?: Never 3. How often do you have six or more drinks on one occasion?: Never Total Score: 0 Score Reviewed/Action Taken: No JULIANE-7 AMB Questionnaire JULIANE-7 Date JULIANE - 7 assessed: 01/26/24 Feeling nervous, anxious, or on edge: 0 = Not at all Not being able to stop or control worryin = Not at all Worrying too much about different things: 0 = Not at all Trouble relaxin = Not at all Being so restless that it is hard to sit still: 0 = Not at all Becoming easily annoyed or irritable: 0 = Not at all Feeling afraid as if something awful might happen: 0 = Not at all Total JULIANE-7 score (0-4 normal; 5-9 mild; 10-14 moderate; 15-21 severe): 0 Source: Developed by Drs. Jt Regalado, Sharon Cherry, Nic Rogel and colleagues, with an educational aylin from [employer]. Physical exam (Primary Care) Vital Signs: Oxygen Delivery Method Room Air 01/26/24 13:24 Tobacco/Smoking Status: Tobacco use Status Tobacco use date assessed 12/19/22 07/22/23 12:48 Patient Tobacco Use Status Former Tobacco user 07/22/23 13:06 Tobacco use type Cigarette 07/22/23 13:06 e-Cigarette/Vaping Use Never Used 07/22/23 13:06 Depression Screening Interpretation: Negative Thrive Assessment: Date of Thrive Assessment Date Thrive assessed 12/19/22 07/22/23 12:48 Currently or been in a relationship where the following occur: no concerns reported Const General: alert; No acute distress Eyes Conjunctivae: conjunctivae normal Resp Auscultation: clear to auscultation bilaterally Cardio Rate: regular rate Rhythm: regular rhythm GI Inspection: Yes normal to inspection Extrem General: Yes normal to inspection and No edema Assessment and Plan Assessment & Plan (1) Seropositive rheumatoid arthritis: Comment: Enbrel: 08/2014- 05/2015 Humira : Dates unknown Plaquenil: 06/2017 GI upset Xehung: 04/2018- 12/2018 high co-pay, did not feel better on the medicine. Kevzara: 01/2021 - 02/2021 rash Actemra: 05/2021 rash Arava :07/2019- present Code(s): M05.9 - Rheumatoid arthritis with rheumatoid factor, unspecified Plan: Patient continues to follow-up with Rheumatology on leflunomide (2) Hypercholesterolemia: Code(s): E78.00 - Pure hypercholesterolemia, unspecified Plan: Avoid fried foods, chicken skin, eggs, butter margarine, pastries and meat. Be it pork or beef they have a lot of cholesterol LDL goal of less than 130 and triglyceride of less than 150. Patient had some problems with simvastatin. Declined any new cholesterol medication. (3) Mild asthma: Comment: PFT 2012 Code(s): J45.909 - Unspecified asthma, uncomplicated Plan: Continue with the inhaler as needed (4) Hypertension: Code(s): I10 - Essential (primary) hypertension Plan: Continue with blood pressure medication. Decrease salt intake and exercise on losartan 25 mg once a day. Blood pressure has been elevated and so will increase losartan to 50 mg once a day (5) Osteoarthritis of hands, bilateral: Code(s): M19.041 - Primary osteoarthritis, right hand; M19.042 - Primary osteoarthritis, left hand Plan: Continue to be active Medications: Changed From losartan 25 mg PO DAILY 30 tabs 5RF I10 - Essential (primary) hypertension To losartan 50 mg PO DAILY 30 tabs 5RF I10 - Essential (primary) hypertension Coding Level of Care Code Est Pt Level 4 (51540) Diagnoses Seropositive rheumatoid arthritis M05.9 Hypercholesterolemia E78.00 Mild asthma J45.909 Hypertension I10 Osteoarthritis of hands, bilateral M19.041; M19.042 Additional Codes PHQ-9 - 56569 - PHQ-9 Billing: ([id number])
== END 2024-01-26 13:43 | disposition home or self-care (01) ==
PROVIDERS: PCP Internal Medicine; Visit Provider Internal Medicine
DX: M05.9 Rheumatoid arthritis with rheumatoid factor, unspecified (principal); E78.00 Pure hypercholesterolemia, unspecified; J45.909 Unspecified asthma, uncomplicated; I10 Essential (primary) hypertension; M19.041 Primary osteoarthritis, right hand; M19.042 Primary osteoarthritis, left hand
CPT/HCPCS: 99214

== ENCOUNTER 2024-04-27 11:42 | Outpatient (REF) | payer MEDICARE, SELFPAY ==
[2024-04-27 11:54] LABS: MANUAL DIFF FLAG NO
[2024-04-27 12:19] LABS: Basophils Percent Auto 0.5 % (0-2); Eosinophils Absolute Auto 0.3 X10*3/uL (0.0-0.4); Eosinophils Percent Auto 4.1 % (0-4); Hematocrit 38.6 % (37.0-47.0); Hemoglobin 14.2 g/dl (12.0-16.0); Imm Gran Abs Auto 0.01 X10*3/uL (0.00-0.03); Imm Gran Pct Auto 0.2 % (0.0-0.4); Lymphocytes Absolute Auto 1.5 X10*3/uL (1.2-4.9); Lymphocytes Percent Auto 24.4 % (20-40); Mean Corpuscular HGB Conc 36.8 g/dl (31.0-35.0); Mean Corpuscular Hemoglobin 32.1 pg (27.0-33.0); Mean Corpuscular Volume 87.1 fL (80.0-98.0); Monocytes Absolute Auto 0.5 X10*3/uL (0.1-1.2); Monocytes Percent Auto 8.1 % (2-11); Neutrophils Absolute Auto 3.9 x10*3/uL (2.0-8.3); Neutrophils Percent Auto 62.7 % (45-73); Platelet Count 279 X10*3/uL (160-400); Red Blood Count 4.43 X10*6/uL (4.20-5.50); Red Cell Distribution Width 12.6 % (11.0-16.0); White Blood Count 6.2 X10*3/uL (4.8-10.8)
[2024-04-27 12:34] LABS: Alanine Aminotransferase 15 U/L (0-31); Aspartate Amino Transferase 19 U/L (5-31); Estimated Glomerular Filt Rate > 60
[2024-04-27 12:59] LABS: Erythrocyte Sedimentation Rate 21 MM/HR (0-20)
== END 2024-04-27 11:43 | disposition home or self-care (01) ==
LOC: HO.LAB 11:42
PROVIDERS: PCP Internal Medicine; Visit Provider Internal Medicine Rheumatology
DX: M05.9 Rheumatoid arthritis with rheumatoid factor, unspecified (principal); Z79.899 Other long term (current) drug therapy
CPT/HCPCS: 36415; 82565; 84450; 84460; 85025; 85652; 86140

== ENCOUNTER 2024-05-06 08:06 | Outpatient (AMB) | payer MEDICARE, SELFPAY ==
--- NOTE | 2024-05-06 08:17 | A.OFFVIS_ITS ---
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 Accompanied by: Self / Same As Patient Allergies lisinopril Allergy (Intermediate, Verified 05/06/24 08:23) Cough sarilumab [From Kevzara] Allergy (Intermediate, Verified 05/06/24 08:23) rash tocilizumab [From Actemra] Allergy (Intermediate, Verified 05/06/24 08:23) Rash nitrofurantoin [Macrobid] Allergy (Unknown, Verified 05/06/24 08:23) UNKNOWN simvastatin Adverse Reaction (Severe, Verified 05/06/24 08:23) ABD PAIN Medication List - Last Reconciled 05/06/24 by Anaya Aguirre MD albuterol sulfate 90 mcg/actuation (ProAir HFA) 2 puffs inhalation Q6H PRN ascorbate calcium (vitamin C) 500 mg PO DAILY cholecalciferol (vitamin D3) 25 mcg PO DAILY cyanocobalamin (vitamin B-12) 1,000 mcg PO DAILY estradiol patches transdermal lactobacillus combination no.9 (Adult 50 Plus Probiotic) 4,000 mmu cells PO DAILY leflunomide 20 mg PO DAILY losartan 50 mg PO DAILY medroxyprogesterone 5 mg PO DAILY multivitamin 1 tab PO DAILY multivitamin with minerals (Hair,Skin and Nails tablet) 1 tab PO DAILY HPI Comments Details: 73-year-old female with seropositive RA returns for follow-up. She remains on leflunomide 20 mg daily. She states that she is doing reasonably well overall. She gets intermittent generalized fatigue and body aches at last 1 or 2 days every few weeks. She states that recently she has been more tired and achy, she feels that it might be related to her not going to her yoga classes as she was busy recently. She stated that she had a melanoma excision from her left arm a few weeks ago. She was told that the margins are clear. most recent history by : The patient returns for evaluation of her rheumatoid arthritis. She remains on leflunomide 20 mg daily. She notes occasional discomfort in the toes where she has some hammertoe deformities. Otherwise the joints have not been painful. She does not seem to have any problems with the leflunomide. [facility] Medical History (Updated 05/06/24 @ 08:55 by Anaya Aguirre MD) Melanoma Elevated blood pressure reading Dysuria Degenerative disc disease Hypercholesterolemia Hepatitis B core antibody positive Seropositive rheumatoid arthritis Palpitations Asthma Rheumatoid arthritis Surgical History S/P breast lumpectomy History of bilateral tubal ligation Family History Father Cardiovascular disease Mother No problems noted. Son Throat cancer Social History Housing: House Alcohol intake: never Patient Tobacco Use Status: Former Tobacco user Tobacco use type: Cigarette Years Smoked: 27 years old quit e-Cigarette/Vaping Use: Never Used Second Hand Smoke Exposure: No service: No Current occupational status: retired Cognitive needs: No Hearing needs: No Vision needs: Yes Review of Systems Const Reports lethargy Musc Reports myalgias, Denies arthralgias and Denies joint swelling Physical Exam Vital Signs: Last Vital Signs Pulse 89 05/06/24 08:22 BP 124/76 05/06/24 08:22 Pulse Ox 97 05/06/24 08:22 Oxygen Delivery Method Room Air 05/06/24 08:22 BMI result Body Mass Index 20.9 APPEARANCE: Patient in no acute distress EYES no redness, pupils equal and reactive to light, eyelids normal EXTREMITIES: No edema, no calf tenderness, normal peripheral pulses. JOINT EXAM: Cervical Spine: She has mild pain with extremes of normal range of motion. There is some slight posterior cervical muscle tenderness. Thoracic Spine:? No scoliosis.? No tenderness on palpation. Lumbar Spine:? Alignment normal.? Full range of motion without pain, no tenderness. Hands:? Right: Slight bony enlargement without tenderness at the base of the thumb. There is some slight nontender thickening at the 1st 3 MCP and the 2nd and 5th PIP joints. None of these are tender. There is some nontender bony enlargement at the 2nd DIP. There is no flexor tendon triggering, thenar atrophy or sensory loss. Left: Moderate bony enlargement with mild tenderness at the base of the thumb. There is also some hyperextension at the thumb MCP. That area is slightly tender. There is some slight thickening in the 2nd, 3rd and 5th MCPs without tenderness. There is mild bony thickening without tenderness at the 2nd 3rd PIP joints. There is some mild thenar atrophy but no sensory loss. Wrists:? Normal pain-free range of motion without tenderness, swelling, increased warmth or erythema. Elbows: Normal pain-free range of motion without tenderness, swelling, increased warmth or erythema. Shoulders:? Full range of motion without pain. No tenderness, weakness, swelling, increased warmth or erythema. Hips:? Full range of motion without pain. Hip bursa: No tenderness. Knees:? Normal pain-free range of motion without tenderness, swelling, increased warmth or erythema.? There is no effusion or crepitation Ankles:? Normal pain-free range of motion without tenderness, swelling, increased warmth or erythema. Feet: Right: Mild bony enlargement at the 1st MTP joint. There is some slight tenderness and hammertoe deformities at the 3rd and 4th toes. No breaks in the skin. No redness or soft tissue swelling. Left: Mild nontender bony enlargement at the 1st MTP joint. The dorsum of the 3rd and 4th toes are also slightly tender and they have some hammertoe deformity. Other joints have normal pain-free range of motion without tenderness, swelling, increased warmth or erythema. 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 Kevzara: 01/2021 - 02/2021 rash Actemra: 05/2021 rash Arava :07/2019- present Code(s): M05.9 - Rheumatoid arthritis with rheumatoid factor, unspecified Category: Medical Plan: This is a 73-year-old female with seropositive RA who returns for follow-up. Doing well overall on Arava 20 mg daily with no active synovitis. 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
[2024-05-06 08:22] VITALS: BP 124/76; PULSE 89; O2SAT 97; BMI 20.9
== END 2024-05-06 08:48 | disposition home or self-care (01) ==
PROVIDERS: PCP Internal Medicine; Visit Provider Student in an Organized Health Care Education/Training Program
DX: M05.79 Rheumatoid arthritis with rheumatoid factor of multiple sites without organ or systems involvement (principal); Z79.899 Other long term (current) drug therapy
CPT/HCPCS: 99214

== ENCOUNTER → 2024-05-06 08:06 | Outpatient (BNVA) | payer MEDICARE, SELFPAY | PROVIDERS: PCP Internal Medicine; Visit Provider Student in an Organized Health Care Education/Training Program | DX: M05.9 Rheumatoid arthritis with rheumatoid factor, unspecified (principal); Z79.899 Other long term (current) drug therapy | CPT/HCPCS: 99212 ==

== ENCOUNTER 2024-05-18 08:27 | Outpatient (AMB) | payer MEDICARE, SELFPAY ==
[2024-05-18 08:49] VITALS: BP 124/78; PULSE 89; O2SAT 98; BMI 20.8
--- NOTE | 2024-05-18 08:49 | MHC.PC.OV ---
Vital Signs 05/18/24 08:49 Height 5 ft 5 in Weight 125 lb BMI 20.8 BP 124/78 Blood Pressure Location Lt brachial Position Sitting Pulse 89 Pulse Source Pulse Oximeter Pulse Oximetry (%) 98 Oxygen Delivery Method Room Air Intake Visit Reasons: Hypertension Allergies lisinopril Allergy (Intermediate, Verified 05/18/24 08:49) Cough sarilumab [From Kevzara] Allergy (Intermediate, Verified 05/18/24 08:49) rash tocilizumab [From Actemra] Allergy (Intermediate, Verified 05/18/24 08:49) Rash nitrofurantoin [Macrobid] Allergy (Unknown, Verified 05/18/24 08:49) UNKNOWN simvastatin Adverse Reaction (Severe, Verified 05/18/24 08:49) ABD PAIN Tobacco use date assessed: 01/26/24 Fall risk assessment: No Falls in past year Last assessed Fall Risk: 05/18/24 Dental Screening Dental Screen Date: 01/26/24 HPI Hypertension HPI Details 73-year-old female with a history of rheumatoid arthritis hypercholesterolemia asthma history of TIA coming in for follow-up. Last seen in 02/03/2024 patient colonoscopy is up-to-date mammogram is up-to-date. Review of the notes has seen Rheumatology April 2024 on Arava. Patient has seen Dermatology also [facility] Medical History (Updated 05/06/24 @ 08:55 by Anaya Aguirre MD) Melanoma Elevated blood pressure reading Dysuria Degenerative disc disease Hypercholesterolemia Hepatitis B core antibody positive Seropositive rheumatoid arthritis Palpitations Asthma Rheumatoid arthritis Surgical History S/P breast lumpectomy History of bilateral tubal ligation Family History Father Cardiovascular disease Mother No problems noted. Son Throat cancer Social History Housing: House Alcohol intake: never Patient Tobacco Use Status: Former Tobacco user Tobacco use type: Cigarette Years Smoked: 27 years old quit e-Cigarette/Vaping Use: Never Used Second Hand Smoke Exposure: No service: No Current occupational status: retired Cognitive needs: No Hearing needs: No Vision needs: Yes Questionnaire PHQ-9 Over the last 2 weeks, how often have you been bothered by any of the following problems? 1. Little interest or pleasure in doing things: several days 2. Feeling down, depressed, or hopeless: several days 3. Trouble falling or staying asleep, or sleeping too much: several days 4. Feeling tired or having little energy: several days 5. Poor appetite or overeating: not at all 6. Feeling bad about yourself - or that you are a failure or have let yourself or your family down: not at all 7. Trouble concentrating on things, such as reading the newspaper or watching television: not at all 8. Moving or speaking so slowly that other people could have noticed. Or the opposite - being so fidgety or restless that you have been moving around a lot more than usual: not at all 9. Thoughts that you would be better off or of hurting yourself in some way: not at all Total score: 4 Depression Screening Interpretation: Negative Depression Screening Done: Yes Source: Developed by Drs. Jt Regalado, Nic Simmons and colleagues, with an educational aylin from [employer]. Thrive Questionnaire Date Thrive assessed: 01/26/24 AUDIT C Alcohol Use Questionnaire (AUDIT-C) 1. How often do you have a drink containing alcohol?: Never 3. How often do you have six or more drinks on one occasion?: Never Total Score: 0 Score Reviewed/Action Taken: No JULIANE-7 AMB Questionnaire JULIANE-7 Date JULIANE - 7 assessed: 01/26/24 Source: Developed by Drs. Jt Regalado, Nic Simmons and colleagues, with an educational aylin from [employer]. Physical exam (Primary Care) Vital Signs: Last Vital Signs Pulse 89 05/18/24 08:49 BP 124/78 05/18/24 08:49 Pulse Ox 98 05/18/24 08:49 Oxygen Delivery Method Room Air 05/18/24 08:49 BMI result Body Mass Index 20.8 Tobacco/Smoking Status: Tobacco use Status Tobacco use date assessed 01/26/24 05/18/24 08:50 Patient Tobacco Use Status Former Tobacco user 05/18/24 08:50 Tobacco use type Cigarette 05/18/24 08:50 e-Cigarette/Vaping Use Never Used 05/18/24 08:50 PHQ-9: PHQ-9 Score PHQ-9: Total score 4 05/18/24 08:50 Depression Screening Interpretation: Negative Thrive Assessment: Date of Thrive Assessment Date Thrive assessed 01/26/24 05/18/24 08:50 Const General: alert; No acute distress Eyes Conjunctivae: conjunctivae normal Resp Auscultation: clear to auscultation bilaterally Cardio Rate: regular rate Rhythm: regular rhythm GI Inspection: Yes normal to inspection Extrem General: Yes normal to inspection and No edema Assessment and Plan Assessment & Plan (1) Seropositive rheumatoid arthritis: Comment: ++RF+++CCP Enbrel: 08/2014- 05/2015 Humira : Dates unknown Plaquenil: 06/2017 GI upset Xeljanz: 04/2018- 12/2018 high co-pay, did not feel better on the medicine. Kevzara: 01/2021 - 02/2021 rash Actemra: 05/2021 rash Arava :07/2019- present Code(s): M05.9 - Rheumatoid arthritis with rheumatoid factor, unspecified Plan: Continue to follow-up with Rheumatology on Arava (2) Mild asthma: Comment: PFT 2012 Code(s): J45.909 - Unspecified asthma, uncomplicated Plan: Continue with the inhaler as needed (3) Hypercholesterolemia: Code(s): E78.00 - Pure hypercholesterolemia, unspecified Plan: Avoid fried foods, chicken skin, eggs, butter margarine, pastries and meat. Be it pork or beef they have a lot of cholesterol LDL goal of less than 130 and triglyceride of less than 150 (4) Hypertension: Code(s): I10 - Essential (primary) hypertension Plan: Continue with blood pressure medication. Decrease salt intake and exercise on losartan 50 mg once a day Orders: Orders Complete Blood Count Auto Diff 6 Months E78.00 - Pure hypercholesterolemia, unspecified Comprehensive Met. Panel 6 Months E78.00 - Pure hypercholesterolemia, unspecified Free T4 (Free Thyroxine) 6 Months E78.00 - Pure hypercholesterolemia, unspecified Thyroid Stimulating Hormone 6 Months E78.00 - Pure hypercholesterolemia, unspecified Vitamin B12 and Folate 6 Months E78.00 - Pure hypercholesterolemia, unspecified Vitamin D 25-OH Total 6 Months E78.00 - Pure hypercholesterolemia, unspecified Lipid Panel 6 Months E78.00 - Pure hypercholesterolemia, unspecified Erythrocyte Sedimentation Rate 6 Months E78.00 - Pure hypercholesterolemia, unspecified C Reactive Protein 6 Months E78.00 - Pure hypercholesterolemia, unspecified Coding Level of Care Code Est Pt Level 4 (09169) Diagnoses Seropositive rheumatoid arthritis M05.9 Mild asthma J45.909 Hypercholesterolemia E78.00 Hypertension I10 Additional Codes PHQ-9 - 05796 - PHQ-9 Billing: ([id number])
== END 2024-05-18 09:22 | disposition home or self-care (01) ==
PROVIDERS: PCP Internal Medicine; Visit Provider Internal Medicine
DX: M05.9 Rheumatoid arthritis with rheumatoid factor, unspecified (principal); J45.909 Unspecified asthma, uncomplicated; E78.00 Pure hypercholesterolemia, unspecified; I10 Essential (primary) hypertension
CPT/HCPCS: 99214

== ENCOUNTER 2024-10-20 15:16 | Outpatient (AMB) | payer MEDICARE, SELFPAY ==
--- NOTE | 2024-10-20 15:21 | MHC.OFFVIS ---
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, Hx of carotid US 11/2022 Machine Turner Required: No Accompanied by: Self / Same As Patient Allergies lisinopril Allergy (Intermediate, Verified 10/20/24 15:24) Cough sarilumab [From Kevzara] Allergy (Intermediate, Verified 10/20/24 15:24) rash tocilizumab [From Actemra] Allergy (Intermediate, Verified 10/20/24 15:24) Rash nitrofurantoin [Macrobid] Allergy (Unknown, Verified 10/20/24 15:24) UNKNOWN simvastatin Adverse Reaction (Severe, Verified 10/20/24 15:24) ABD PAIN HPI HPI PCP referral for jugular vein compression: Details: Very pleasant 71-year-old female presents for evaluation regarding pulsatile tinnitus. She reports that she had a prior port placement and on the report she noted that there was some compressibility of the vein. Unfortunately I do not have access to the report but it was an outside institution. In terms of the jugular she denies any symptoms she does have some neck pain but more importantly has this persistent pulsatile tinnitus. She did some research on the Internet when became concerned and now presents to us for vascular evaluation. [facility] Medical History Melanoma Elevated blood pressure reading Dysuria Degenerative disc disease Hypercholesterolemia Hepatitis B core antibody positive Seropositive rheumatoid arthritis Palpitations Asthma Rheumatoid arthritis Surgical History S/P breast lumpectomy History of bilateral tubal ligation Family History Father Cardiovascular disease Mother No problems noted. Son Throat cancer Social History Housing: House Alcohol intake: never Patient Tobacco Use Status: Former Tobacco user Tobacco use type: Cigarette Years Smoked: 27 years old quit e-Cigarette/Vaping Use: Never Used Second Hand Smoke Exposure: No service: No Current occupational status: retired Cognitive needs: No Hearing needs: No Vision needs: Yes Review of Systems Const All systems reviewed & are unremarkable except as noted in HPI and below Reports no additional complaints ENT Reports Normal hearing present Card Denies chest pain, Denies chest pain at rest, Denies chest pain with activity and Denies pedal edema Resp Denies cough GI Denies abdominal pain Musc Denies abnormal gait, Denies muscle cramps and Denies radiating pain into limb Skin/Breast Denies skin ulcer and Denies wounds Neuro Reports Normal hearing present and Denies abnormal gait Psych Reports no additional complaints Physical Exam Vital Signs: BMI result Body Mass Index 20.8 Const General: cooperative, healthy appearing and comfortable Orientation/consciousness: oriented to person, oriented to place and oriented to time HEENT Head: Yes normal to inspection Neck Neck: Yes normal visual inspection Carotids: no bruits Chest Chest palpation & inspection: normal inspection of the chest Resp Effort & Inspection: normal respiratory effort and able to speak in complete sentences Auscultation: clear to auscultation bilaterally, no crackles, no rales, no rhonchi and no wheezes Cardio Rate: regular rate Rhythm: regular rhythm Heart sounds: S1 normal heart sound present and S2 normal heart sound present Bruits: no carotid bruits Peripheral pulses: Peripheral pulses 2+ throughout GI Inspection: Yes normal to inspection Skin Wounds: no wounds Hair: normal Neuro General: oriented to person, oriented to place and oriented to time Cranial nerves: Yes CN's II-XII intact bilaterally and Yes Normal hearing present Cognition (Neuro): normal cognition Motor exam (neuro): 5/5 motor strength present throughout Extrem Other: venous exam: No significant superficial varicosities or spider telangiectasias, minimal edema General: No clubbing, No cyanosis and No edema Psych Appearance: grossly normal Mental Status: mental status grossly normal Speech and movement: Normal speech and movement present Results Reviewed Results Reviewed: Carotid ultrasound dated 11/18/2022 demonstrates no evidence of carotid stenosis. I also reviewed the images I did not appreciate any venous stenosis on my review. Assessment & Plan Assessment & Plan (1) Pulsatile tinnitus: Code(s): H93.A9 - Pulsatile tinnitus, unspecified ear Category: Medical Plan: Unclear etiology of pulsatile tinnitus. She does note that she does have some hearing loss as well. I did some educating and reassurance that the compressibility the jugular vein is completely normal and to be expected with port placement. Should her issues with pulsatile tinnitus continue may benefit from an ENT evaluation. If it does become significantly worse there is a pulsatile tinnitus clinic that is in [facility]. This was all discussed with the patient. She will follow up with us on an as-needed basis. Thank you for allowing us to assist in her care. Coding Level of Care Code New Pt Level 4 (02580) Diagnoses Pulsatile tinnitus H93.A9
[2024-10-20 15:22] VITALS: BMI 20.8
--- OUTSIDE RECORDS SUMMARY | 2024-10-26 04:16 | XMS_ITS | Continuity of Care Document ---
Author Organization [facility] Address [address] [place] [address]- Care Team Providers Care Traffic Counter Name Role Phone Po Juni PALACIOS Primary Care Physician [place] [facility] [place] - 10/22/[address] [address] Encounter Type: Triage Allergies, Adverse Reactions, Alerts Substance Criticality Severity Reaction Reaction Severity Status simvastatin Active Macrobid Active Medications Arava By Mouth, Daily, 0 Refills, Maintenance, 09/13/24 8:06:00 AM EDT, Partial fill upon patient requestif the prescription is for a schedule II opioid drug. Start Date: 09/13/24 Status: Ordered Repeat number: 1 Ativan 0.5 mg oral tablet 1 tablet = 0.5 mg, By Mouth, Once, May takeone hour prior to procedure. No driving once taken., # 2tablet, 0 Refills, Soft Stop, 09/13/24 9:10:00 AM EDT, Tablet, [facility]/pharmacy #[id number], Partial fill upon patient request if the prescription is for a schedule II opioid drug. Start Date: 09/13/24 Status: Ordered Quantity: 2.0 Unit: tablet Repeat number: 1 Conjugated Estrogens By Mouth, 0 Refills, Maintenance, 09/16/24 10:11:00 AM EDT, Partial fill upon patient request if theprescription is for a schedule II opioid drug. Start Date: 09/16/24 Status: Ordered Repeat number: 1 entecavir 0.5 mg oral tablet 1 tablet = 0.5 mg, By Mouth, Daily, # 90 tablet, 3 Refills, Maintenance, 09/16/24 2:12:00 PM EDT, Tablet, [facility]/pharmacy #[id number], Partial fill upon patient request if the prescription is for a schedule IIopioid drug., 160.5, cm, 09/16/24 9:31:00 EDT, Height, 57.8, kg, 09/16/24 9:31:00 EDT, Dry Weight Start Date: 09/16/24 Status: Ordered Quantity: 90.0 Unit: tablet Repeat number: 4 lidocaine-prilocaine 2.5%-2.5% topical cream 1 application, Topically, Once, apply to port 45 min before use, # 30 Gm, 0 Refills, Soft Stop, 10/18/24 4:31:00 PM EST, Cream, [facility]/pharmacy #[id number], Partial fill upon patient request if the prescription is for a schedule II opioid drug., 1 application Topically Once,Instr:apply to port 45 min before use, 161, cm, 10/18/24 13:49:00 EST, Height, 57.3, kg, 09/29/24 10:00:00 EST, Dry Weight Start Date: 10/18/24 Status: Ordered Quantity: 30.0 Unit: g Repeat number: 1 Losartan By Mouth, Daily, 0 Refills, Maintenance, 09/13/24 8:06:00 AM EDT, Partial fill upon patient requestif the prescription is for a schedule II opioid drug. Start Date: 09/13/24 Status: Ordered Repeat number: 1 Multi Vitamin+ 0 Refills, Maintenance, 09/13/24 8:06:00 AM EDT, Partial fill upon patient request if the prescription is for a schedule II opioid drug. Start Date: 09/13/24 Status: Ordered Repeat number: 1 ondansetron 8 mg oral tablet 1 tablet = 8 mg, By Mouth, Every 8 hours, PRN Nausea & Vomiting, # 30 tablet, 1 Refills, Maintenance, 09/28/24 8:42:00 AM EST, [facility]/pharmacy #[id number], Partial fill upon patient request if the prescription is for a schedule II opioid drug., 160.5, cm, 09/22/24 11:10:00 EST, Height, 57.5, kg, 09/22/24 9:46:00 EST, Dry Weight Start Date: 09/28/24 Status: Ordered Quantity: 30.0 Unit: tablet Repeat number: 2 Probiotic Formula By Mouth, Daily, 0 Refills, Maintenance, 09/13/24 8:06:00 AM EDT, Partial fill upon patient requestif the prescription is for a schedule II opioid drug. Start Date: 09/13/24 Status: Ordered Repeat number: 1 prochlorperazine 5 mg oral tablet 1 tablet = 5 mg, By Mouth, Every 6 hours, PRN Nausea & Vomiting, # 30 tablet, 1 Refills, Maintenance, 09/28/24 8:42:00 AM EST, [facility]/pharmacy #[id number], Partial fill upon patient request if the prescription is for a schedule II opioid drug., 160.5, cm, 09/22/24 11:10:00 EST, Height, 57.5, kg, 09/22/24 9:46:00 EST, Dry Weight Start Date: 09/28/24 Status: Ordered Quantity: 30.0 Unit: tablet Repeat number: 2 Progesterone By Mouth, 0 Refills, Maintenance, 09/16/24 10:11:00 AM EDT, Partial fill upon patient request if theprescription is for a schedule II opioid drug. Start Date: 09/16/24 Status: Ordered Repeat number: 1 Vitamin C By Mouth, Daily, 0 Refills, Maintenance, 09/13/24 8:06:00 AM EDT, Partial fill upon patient requestif the prescription is for a schedule II opioid drug. Start Date: 09/13/24 Status: Ordered Repeat number: 1 Vitamin D 52259 iu oral capsule 50,000 International_Units, By Mouth, Daily, Refills 0, Maintenance, 09/13/24 8:06:00 AM EDT, Partial fill upon patient request if the prescription is for a schedule II opioid drug. Start Date: 09/13/24 Status: Ordered Repeat number: 1 Problem List Condition Confirmation Course Effective Dates Status Health St atus Informant Breast cancer, left breast Confirmed Active Social History Social History Type Response Smoking Status Former smoker, quit more than 30 days ago entered on: 09/13/24 Sex Female Sex Representation Female (finding) Patient Care team information Care Team Personnel Name: Dena BAZZI, Lenora Position: S Onco RN Member Role: Primary Care Nurse Name: Juni Crews MD Position: Reference Physician Member Role: PCP Address: [address] [place] [address] Telecom: Care Team Related Persons Name: MICHEL CARNEY Insurance Providers Guarantor name: JULY [facility] Plan Information #: 1 Payer: PAULA Member Number: NA Policy Number: NA Group Number: NA
--- OUTSIDE RECORDS SUMMARY | 2024-10-26 04:16 | XMS_ITS | Continuity of Care Document ---
Author Organization [facility] [place] [address] [place] [address]- Care Team Providers Care Shop Router Name Role Phone Po Juni PALACIOS Primary Care Physician [place] [facility] [place]/05/24 - 10/05/[address] [address] Attending Physician: Emiliano Painter Admitting Physician: Emiliano Painter Referring Physician: Emiliano Painter Encounter Type: Triage Allergies, Adverse Reactions, Alerts [...] Soft Stop, 09/13/24 9:10:00 AM EDT, Tablet, [facility]/pharmacy #[id number], Partial fill upon [...] Refills, Maintenance, 09/16/24 2:12:00 PM EDT, Tablet, [facility]/pharmacy #[id number], Partial fill upon patient request if the prescription is for a schedule IIopioid drug., 160.5, cm, 09/16/24 9:31:00 EDT, Height, 57.8, kg, 09/16/24 9:31:00 EDT, Dry Weight Start Date: 09/16/24 Status: Ordered Quantity: 90.0 Unit: tablet Repeat number: 4 Losartan By Mouth, Daily, 0 Refills, Maintenance, [...] 1 Refills, Maintenance, 09/28/24 8:42:00 AM EST, [facility]/pharmacy #[id number], Partial fill upon [...] 1 Refills, Maintenance, 09/28/24 8:42:00 AM EST, [facility]/pharmacy #[id number], Partial fill upon [...] Status: Ordered Repeat number: 1 Vitamin D 58625 iu oral capsule 50,000 International_Units, By Mouth, [...] Care team information Care Team Personnel Name: Juni Crews MD Position: Reference Physician Member Role: PCP Address: [address] [place] [address]- Telecom: Care Team Related Persons Name: MICHEL CARNEY Insurance Providers Guarantor name: JULY CARNEY Health Plan Information #: 1 Payer: NA Member Number: NA Policy Number: NA Group Number: NA
--- OUTSIDE RECORDS SUMMARY | 2024-10-26 04:16 | XMS_ITS | Continuity of Care Document ---
Author Organization [facility] Address [address] [place] [address]- Care Team Providers Care Electric Cutter Operator Name Role Phone Po Juni PALACIOS Primary Care Physician Encounter [facility] [place] Date(s): 09/16/24 - 10/16/[address] [address] Encounter Type: Triage Allergies, Adverse Reactions, [...] Soft Stop, 09/13/24 9:10:00 AM EDT, Tablet, [facility]/pharmacy #[id number], Partial fill upon patient request [...] Refills, Maintenance, 09/16/24 2:12:00 PM EDT, Tablet, [facility]/pharmacy #[id number], Partial fill upon patient request [...] 1 Refills, Maintenance, 09/28/24 8:42:00 AM EST, [facility]/pharmacy #[id number], Partial fill upon patient request [...] 1 Refills, Maintenance, 09/28/24 8:42:00 AM EST, [facility]/pharmacy #[id number], Partial fill upon patient request if [...] Status: Ordered Repeat number: 1 Vitamin D 46204 iu oral capsule 50,000 International_Units, By Mouth, [...] Position: Reference Physician Member Role: PCP Address: [address] [place] [address] Telecom: Care Team Related Persons Name: MICHEL CARNEY Insurance Providers Guarantor name: JULY [facility] Health Plan Information #: 1 Payer: PAULA Member Number: NA Policy Number: NA Group Number: NA
== END 2024-10-20 15:54 | disposition home or self-care (01) ==
PROVIDERS: PCP Internal Medicine; Visit Provider Surgery Vascular Surgery
DX: H93.A9 Pulsatile tinnitus, unspecified ear (principal)
CPT/HCPCS: 99204

== ENCOUNTER → 2024-10-20 15:16 | Outpatient (BNVA) | payer MEDICARE, SELFPAY | PROVIDERS: PCP Internal Medicine; Visit Provider Surgery Vascular Surgery | DX: H93.A9 Pulsatile tinnitus, unspecified ear (principal); Z95.828 Presence of other vascular implants and grafts | CPT/HCPCS: 99202 ==

== ENCOUNTER 2024-10-31 09:56 | Outpatient (REF) | payer MEDICARE, SELFPAY ==
--- OUTSIDE RECORDS SUMMARY | 2024-10-31 10:00 | XMS_ITS | Continuity of Care Document ---
Author Organization [facility] Address [address] [place] [address]- Care Team Providers Care Vet Assistant Name Role Phone Po Juni PALACIOS Primary Care Physician [place] [facility] [place] 09/26/24 - 10/26/24 [facility] [address] [place] [address]- Encounter Type: Triage Allergies, Adverse Reactions, Alerts [...] Soft Stop, 09/13/24 9:10:00 AM EDT, Tablet, [facility]/pharmacy #[id number], Partial fill upon patient request if [...] Refills, Maintenance, 09/16/24 2:12:00 PM EDT, Tablet, [facility]/pharmacy #[id number], Partial fill upon patient request if [...] Soft Stop, 10/18/24 4:31:00 PM EST, Cream, [facility]/pharmacy #[id number], Partial fill upon patient request if [...] 1 Refills, Maintenance, 09/28/24 8:42:00 AM EST, [facility]/pharmacy #[id number], Partial fill upon patient request if [...] 1 Refills, Maintenance, 09/28/24 8:42:00 AM EST, [facility]/pharmacy #[id number], Partial fill upon patient request if [...] Status: Ordered Repeat number: 1 Vitamin D 61242 iu oral capsule 50,000 International_Units, By Mouth, [...] Care team information Care Team Personnel Name: Lenora Fernandes RN Position: Gabbie Onco RN Member Role: Primary Care Nurse Name: Juni Crews MD Position: Reference Physician Member Role: PCP Address: [address] [place], [place] [address] Telecom: Care Team Related Persons Name: MICHEL CARNEY Insurance Providers Guarantor name: JULY [facility] Information #: 1 Payer: PAULA Member Number: NA Policy Number: NA Group Number: NA
[2024-10-31 10:43] LABS: Basophils Percent Auto 1.3 % (0-2); Eosinophils Absolute Auto 0.1 X10*3/uL (0.0-0.4); Eosinophils Percent Auto 2.6 % (0-4); Hematocrit 30.5 % (37.0-47.0); Hemoglobin 10.9 g/dl (12.0-16.0); Imm Gran Abs Auto 0.02 X10*3/uL (0.00-0.03); Imm Gran Pct Auto 0.9 % (0.0-0.4); Lymphocytes Percent Auto 43.9 % (20-40); MANUAL DIFF FLAG SCAN; Mean Corpuscular HGB Conc 35.7 g/dl (31.0-35.0); Mean Corpuscular Hemoglobin 31.5 pg (27.0-33.0); Mean Corpuscular Volume 88.2 fL (80.0-98.0); Mean Platelet Volume 9.3 fL (9.4-12.3); Monocytes Absolute Auto 0.2 X10*3/uL (0.1-1.2); Monocytes Percent Auto 9.6 % (2-11); Neutrophils Percent Auto 41.7 % (45-73); Platelet Count 183 X10*3/uL (160-400); Red Blood Count 3.46 X10*6/uL (4.20-5.50); Red Cell Distribution Width 13.2 % (11.0-16.0); SCAN SMEAR FLAG 1
[2024-10-31 10:46] LABS: White Blood Count 2.3 X10*3/uL (4.8-10.8)
[2024-10-31 11:10] LABS: SLIDE REVIEW VERIFIED
[2024-10-31 11:48] LABS: Erythrocyte Sedimentation Rate 26 MM/HR (0-20)
[2024-10-31 11:52] LABS: Albumin Level 4.1 g/dL (3.5-5.0); Anion Gap 13 (12-20); Aspartate Amino Transferase 26 U/L (5-31); Bilirubin Total 0.6 mg/dL (0.0-1.0); Blood Urea Nitrogen 18 mg/dL (9-16); C Reactive Protein < 0.10 mg/dL (< or = 0.50); Calcium 9.8 mg/dL (8.4-10.2); Carbon Dioxide 25 mmol/L (22-29); Chloride 110 mmol/L (96-108); Estimated Glomerular Filt Rate > 60; Glucose Random 96 mg/dL (60-115); Potassium 4.8 mmol/L (3.3-5.1); Sodium 143 mmol/L (135-145); Total Protein 6.4 g/dL (6.5-8.0)
[2024-10-31 12:00] LABS: Alanine Aminotransferase 25 U/L (0-31); Alkaline Phosphatase 68 U/L (39-117)
== END 2024-10-31 09:57 | disposition home or self-care (01) ==
LOC: HO.LAB 09:56
PROVIDERS: PCP Internal Medicine; Visit Provider Student in an Organized Health Care Education/Training Program
DX: M05.9 Rheumatoid arthritis with rheumatoid factor, unspecified (principal); Z79.899 Other long term (current) drug therapy
CPT/HCPCS: 36415; 80053; 85025; 85652; 86140

== ENCOUNTER 2024-11-02 08:08 | Outpatient (AMB) | payer MEDICARE, SELFPAY ==
--- NOTE | 2024-11-02 08:20 | MHC.OFFVIS ---
Vital Signs 11/02/24 08:26 Height 5 ft 5 in Weight 126 lb 15.78 oz BMI 21.1 BP 150/82 H Blood Pressure Location Lt brachial Position Sitting Pulse 85 Pulse Source Pulse Oximeter Pulse Oximetry (%) 95 Oxygen Delivery Method Room Air Intake Visit Reasons: RA Intake Note: Patient presents for RA. Allergies lisinopril Allergy (Intermediate, Verified 11/02/24 08:25) Cough sarilumab [From Kevzara] Allergy (Intermediate, Verified 11/02/24 08:25) rash tocilizumab [From Actemra] Allergy (Intermediate, Verified 11/02/24 08:25) Rash nitrofurantoin [Macrobid] Allergy (Unknown, Verified 11/02/24 08:25) UNKNOWN simvastatin Adverse Reaction (Severe, Verified 11/02/24 08:25) ABD PAIN Medication List - Last Reconciled 11/02/24 by Anaya Aguirre MD albuterol sulfate 90 mcg/actuation (ProAir HFA) 2 puffs inhalation Q6H PRN ascorbate calcium (vitamin C) 500 mg PO DAILY cholecalciferol (vitamin D3) 25 mcg PO DAILY cyanocobalamin (vitamin B-12) 1,000 mcg PO DAILY estradiol patches transdermal lactobacillus combination no.9 (Adult 50 Plus Probiotic) 4,000 mmu cells PO DAILY losartan 50 mg PO DAILY medroxyprogesterone 5 mg PO DAILY multivitamin 1 tab PO DAILY multivitamin with minerals (Hair,Skin and Nails tablet) 1 tab PO DAILY HPI Comments Details: 73-year-old female with seropositive RA returns for follow-up. She remains on leflunomide 20 mg daily. She was diagnosed with breast cancer recently that has spread to her lymph nodes. Per patient the plan is to do 24 weeks of chemotherapy potentially followed by surgery and radiation afterwards. She states that her rheumatoid has not been acting up. But she has been having neck pain that starts in her knee and shoots down her neck and upper back most recent history by : The patient returns for evaluation of her rheumatoid arthritis. She remains on leflunomide 20 mg daily. She notes occasional discomfort in the toes where she has some hammertoe deformities. Otherwise the joints have not been painful. She does not seem to have any problems with the leflunomide. [facility] Medical History Melanoma Elevated blood pressure reading Dysuria Degenerative disc disease Hypercholesterolemia Hepatitis B core antibody positive Seropositive rheumatoid arthritis Palpitations Asthma Rheumatoid arthritis Surgical History S/P breast lumpectomy History of bilateral tubal ligation Family History Father Cardiovascular disease Mother No problems noted. Son Throat cancer Social History Housing: House Alcohol intake: never Patient Tobacco Use Status: Former Tobacco user Tobacco use type: Cigarette Years Smoked: 27 years old quit e-Cigarette/Vaping Use: Never Used Second Hand Smoke Exposure: No service: No Current occupational status: retired Cognitive needs: No Hearing needs: No Vision needs: Yes Review of Systems ENT Reports neck pain Musc Denies arthralgias, Denies joint swelling, Reports neck pain and Denies stiffness Physical Exam Vital Signs: Last Vital Signs Pulse 85 11/02/24 08:26 BP 150/82 H 11/02/24 08:26 Pulse Ox 95 11/02/24 08:26 Oxygen Delivery Method Room Air 11/02/24 08:26 BMI result Body Mass Index 21.1 Const General: cooperative Nutritional Appearance: average body habitus Limitations: no limitations HEENT Head: Yes normocephalic and Yes atraumatic Mouth: moist mucous membranes Resp Effort & Inspection: normal respiratory effort and able to speak in complete sentences Auscultation: clear to auscultation bilaterally Cardio Rate: regular rate Rhythm: regular rhythm Skin Other: Has lost significant amount of hair General skin exam: no rashes or lesions noted Extrem Other: No active synovitis Synovial thickening of bilateral 2nd MCP joints No tender joints Normal bilateral hand trading assistant strength Normal range of motion of wrists fingers, elbows and shoulders without pain No knee pain with full flexion-extension Normal nailfold capillaroscopy Assessment & Plan Assessment & Plan (1) Seropositive rheumatoid arthritis: Comment: ++RF+++CCP Enbrel: 08/2014- 05/2015 Humira : Dates unknown Plaquenil: 06/2017 GI upset Xeljanz: 04/2018- 12/2018 high co-pay, did not feel better on the medicine. Kevzara: 01/2021 - 02/2021 rash Actemra: 05/2021 rash Arava :07/2019- DC 10/2024 after Breast CA dx & chemotherapy started Code(s): M05.9 - Rheumatoid arthritis with rheumatoid factor, unspecified Category: Medical Plan: This is a 73-year-old female with seropositive RA who returns for follow-up. She remains on leflunomide 20 mg daily. She was recently diagnosed with breast cancer and started on chemotherapy with paclitaxel, she also gets steroids during the infusions. Recent labs showed anemia and leukopenia. At this time I will discontinue the leflunomide. Her RA will likely be well controlled with the steroids that she gets with chemotherapy. Paclitaxel can have some immune suppressive effects. There is also risk of worsening leukopenia when combining leflunomide and paclitaxel. I will watch her off DMARDs at this time. 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: Code(s): Z79.899 - Other watcher automat long goods (current) drug therapy Category: Medical Plan: Leflunomide DC'd as mentioned above Plan I spent 25 minutes reviewing patient's chart, evaluating patient, ordering diagnostic workup, counseling patient and documenting in the chart Orders: Orders Complete Blood Count Auto Diff 4 Months M05.9 - Rheumatoid arthritis with rheumatoid factor, unspecified, Z79.899 - Other watcher automat long goods (current) drug therapy Erythrocyte Sedimentation Rate 4 Months M05.9 - Rheumatoid arthritis with rheumatoid factor, unspecified, Z79.899 - Other watcher automat long goods (current) drug therapy Comprehensive Met. Panel 4 Months M05.9 - Rheumatoid arthritis with rheumatoid factor, unspecified, Z79.899 - Other watcher automat long goods (current) drug therapy C Reactive Protein 4 Months M05.9 - Rheumatoid arthritis with rheumatoid factor, unspecified, Z79.899 - Other watcher automat long goods (current) drug therapy Medications: Discontinued prednisone Discontinued Reason: Patient Completed Course Take 3 tabs daily for 5 days, 2 tabs daily for 5 days, 1 tab daily for 5 days then stop 30 tabs 0RF leflunomide Discontinued Reason: Doctor's Order TAKE 1 TABLET BY MOUTH EVERY DAY 60 tabs 3RF M05.9 - Rheumatoid arthritis with rheumatoid factor, unspecified Coding Level of Care Code Est Pt Level 4 (70232) Diagnoses Seropositive rheumatoid arthritis M05.9 [facility] use of drug Z79.899
[2024-11-02 08:26] VITALS: BP 150/82; PULSE 85; O2SAT 95; BMI 21.1
== END 2024-11-02 08:51 | disposition home or self-care (01) ==
PROVIDERS: PCP Internal Medicine; Visit Provider Student in an Organized Health Care Education/Training Program
DX: M05.79 Rheumatoid arthritis with rheumatoid factor of multiple sites without organ or systems involvement (principal); Z79.899 Other long term (current) drug therapy
CPT/HCPCS: 99214

== ENCOUNTER → 2024-11-02 08:08 | Outpatient (BNVA) | payer MEDICARE, SELFPAY | PROVIDERS: PCP Internal Medicine; Visit Provider Student in an Organized Health Care Education/Training Program | DX: M05.9 Rheumatoid arthritis with rheumatoid factor, unspecified (principal); Z79.899 Other long term (current) drug therapy | CPT/HCPCS: 99212 ==

== ENCOUNTER 2024-11-10 09:29 | Outpatient (REF) | payer MEDICARE, SELFPAY | END 2024-11-10 09:30 | disposition home or self-care (01) | LOC: HO.XRAY 09:29 | PROVIDERS: PCP Internal Medicine; Visit Provider Internal Medicine | DX: M54.2 Cervicalgia (principal) | CPT/HCPCS: 72040 ==

== ENCOUNTER 2025-02-03 10:14 | Outpatient (AMB) | payer MEDICARE, SELFPAY ==
--- NOTE | 2025-02-03 10:18 | MHC.PC.OV ---
Vital Signs 02/03/25 10:20 Height 5 ft 5 in Weight 113 lb BMI 18.8 BP 126/70 Blood Pressure Location Lt brachial Position Sitting Pulse 102 H Pulse Source Pulse Oximeter Temp 97.1 F Temp Source Temporal Artery Scan Pulse Oximetry (%) 99 Oxygen Delivery Method Room Air Intake Visit Reasons: [facility] 01/19 blood transfusion Intake Note: Patient is here for hospital discharge follow up. Patient was discharged from [facility] on 01/19/25. Pulley Maintainer Required: No Applied Research Director: Not Required per policy Accompanied by: Self / Same As Patient Allergies lisinopril Allergy (Intermediate, Verified 02/03/25 10:25) Cough sarilumab [From Kevzara] Allergy (Intermediate, Verified 02/03/25 10:25) rash tocilizumab [From Actemra] Allergy (Intermediate, Verified 02/03/25 10:25) Rash nitrofurantoin [Macrobid] Allergy (Unknown, Verified 02/03/25 10:25) UNKNOWN simvastatin Adverse Reaction (Severe, Verified 02/03/25 10:25) ABD PAIN Medication List - Last Reconciled 02/03/25 by Ramonita Short PA-C albuterol sulfate 90 mcg/actuation (ProAir HFA) 2 puffs inhalation Q6H PRN ascorbate calcium (vitamin C) 500 mg PO DAILY cholecalciferol (vitamin D3) 25 mcg PO DAILY cyanocobalamin (vitamin B-12) 1,000 mcg PO DAILY estradiol patches transdermal lactobacillus combination no.9 (Adult 50 Plus Probiotic) 4,000 mmu cells PO DAILY leflunomide 20 mg PO DAILY losartan 50 mg PO DAILY medroxyprogesterone 5 mg PO DAILY multivitamin 1 tab PO DAILY multivitamin with minerals (Hair,Skin and Nails tablet) 1 tab PO DAILY Tobacco use date assessed: 02/03/25 Fall risk assessment: No Falls in past year Last assessed Fall Risk: 02/03/25 Dental Screening Dental Screen Date: 02/03/25 Did you have a dental visit in the last 12 months?: Yes Did you have a dental problem in the last 6 months where you did not have access to dental care?: No Was dental information given to patient?: Patient has dentist HPI [facility] 01/19 blood transfusion HPI Details 74-year-old male with past medical history of rheumatoid arthritis, hypercholesterolemia, asthma, hypertension, history of TIA history of left breast cancer last seen 05/[address] Crews coming in hospital discharge follow up.?In review of the notes, patient was seen in [facility] 01/16/2025 after being seen by outpatient Oncology office for blood transfusion feeling hypotensive and febrile.?While in the waiting room patient did have syncopal episode and continues to feel weak patient was admitted for neutropenic fever. Hospital admission was prompted by neutropenic fever and leukopenia. Transfusions were given due to low white blood cell counts, and she developed a urinary tract infection alongside diarrhea. Reports intermittent episodes of excessive sweating upon waking and subsequent chills, though she noted afebrile measurements. She was initially feeling very fatigued after her transfusion which has been resolving over the last few days. [facility] Medical History Melanoma Elevated blood pressure reading Dysuria Degenerative disc disease Hypercholesterolemia Hepatitis B core antibody positive Seropositive rheumatoid arthritis Palpitations Asthma Rheumatoid arthritis Surgical History S/P breast lumpectomy History of bilateral tubal ligation Family History Father Cardiovascular disease Mother No problems noted. Son Throat cancer Social History Housing: House Alcohol intake: never Patient Tobacco Use Status: Former Tobacco user Tobacco use type: Cigarette Years Smoked: 27 years old quit e-Cigarette/Vaping Use: Never Used Second Hand Smoke Exposure: No service: No Current occupational status: retired Cognitive needs: No Hearing needs: No Vision needs: Yes Questionnaire PHQ-9 Over the last 2 weeks, how often have you been bothered by any of the following problems? 1. Little interest or pleasure in doing things: not at all 2. Feeling down, depressed, or hopeless: not at all 3. Trouble falling or staying asleep, or sleeping too much: not at all 4. Feeling tired or having little energy: not at all 5. Poor appetite or overeating: not at all 6. Feeling bad about yourself - or that you are a failure or have let yourself or your family down: not at all 7. Trouble concentrating on things, such as reading the newspaper or watching television: not at all 8. Moving or speaking so slowly that other people could have noticed. Or the opposite - being so fidgety or restless that you have been moving around a lot more than usual: not at all 9. Thoughts that you would be better off or of hurting yourself in some way: not at all Total score: 0 Depression Screening Interpretation: Negative Depression Screening Done: Yes Source: Developed by Drs. Jt Regalado, Sharon Cherry, Nic Rogel and colleagues, with an educational aylin from [employer]. Thrive Questionnaire Date Thrive assessed: 02/03/25 I am a: Patient What is your living situation today?: I have a steady place to live Within the past 12 months, did the food you bought not last and you didn't have the money to get more?: Never true Within the past 12 months, did you worry whether your food would run out before you got money to buy more?: Never true Do you have trouble paying for medicines?: No Do you have trouble getting transportation to medical appointments?: No Do you have trouble paying your heating and electricity bill?: No Do you have trouble taking care of your child, family member or friend?: No Do you have trouble with day-to-day activities such as bathing, preparing meals, shopping, managing finances, etc.?: No Are you currently unemployed and looking for a job?: No Are you interested in more education?: No Please select the resources that you would like help with: None Currently or been in a relationship where the following occur: No concerns reported THRIVE Score: 0 AUDIT C Alcohol Use Questionnaire (AUDIT-C) 1. How often do you have a drink containing alcohol?: Never Total Score: 0 JULIANE-7 AMB Questionnaire JULIANE-7 Date JULIANE - 7 assessed: 02/03/25 Feeling nervous, anxious, or on edge: 0 = Not at all Not being able to stop or control worryin = Not at all Worrying too much about different things: 0 = Not at all Trouble relaxin = Not at all Being so restless that it is hard to sit still: 0 = Not at all Becoming easily annoyed or irritable: 0 = Not at all Feeling afraid as if something awful might happen: 0 = Not at all Total JULIANE-7 score (0-4 normal; 5-9 mild; 10-14 moderate; 15-21 severe): 0 Source: Developed by Drs. Jt Regalado, Sharon Cherry, Nic Rogel and colleagues, with an educational aylin from [employer]. Review of Systems Const Denies body aches, Reports chills, Denies fever(s), Denies headache(s) and Reports poor appetite Eyes Reports no additional complaints ENT Denies dizziness and Denies headache(s) Card Denies chest pain, Denies syncope, Denies edema, Denies irregular heart rhythm, Denies lightheadedness and Denies dyspnea Resp Denies cough and Denies dyspnea GI Denies abdominal pain, Denies nausea and Denies vomiting Reports no additional complaints Musc Reports no additional complaints and Denies abnormal gait Skin/Breast Reports system reviewed and no additional complaints, except as documented Neuro Denies abnormal gait, Denies dizziness, Denies syncope and Denies headache(s) Psych Reports no additional complaints Physical exam (Primary Care) Vital Signs: Last Vital Signs Temp 97.1 F 02/03/25 10:20 Oxygen Delivery Method Room Air 02/03/25 10:20 BMI result Body Mass Index 18.8 Tobacco/Smoking Status: Tobacco use Status Tobacco use date assessed 01/26/24 02/03/25 10:19 Patient Tobacco Use Status Former Tobacco user 02/03/25 10:19 Tobacco use type Cigarette 02/03/25 10:19 e-Cigarette/Vaping Use Never Used 02/03/25 10:19 PHQ-9: PHQ-9 Score PHQ-9: Total score 0 02/03/25 10:19 Depression Screening Interpretation: Negative Thrive Assessment: Date of Thrive Assessment Date Thrive assessed 02/03/25 02/03/25 10:19 Currently or been in a relationship where the following occur: No concerns reported Const General: cooperative, healthy appearing, comfortable and no acute distress Orientation/consciousness: patient oriented x3 HENMT Head: Yes normocephalic Ears: hearing grossly normal bilaterally General nose exam: Normal external nose present Eyes General: appearance normal, both eyes and all related structures Conjunctivae: conjunctivae normal Neck Neck: Yes full ROM and Yes no lymphadenopathy Resp Effort & Inspection: normal respiratory effort Auscultation: clear to auscultation bilaterally, no crackles, no rales, no rhonchi and no wheezes Cardio Rate: regular rate Rhythm: regular rhythm Skin General skin exam: no rashes or lesions noted Neuro General: patient oriented x3 Gait exam (Neuro): Normal gait present Extrem General: Yes normal to inspection, Yes full ROM and No edema Psych Affect: normal affect Attitude: cooperative Insight: Good insight present (Psych) Judgement: Good judgement present (Psych) Coding Level of Care Code Est Pt Level 3 (70528) Diagnoses Breast cancer, left C50.912 Hypertension I10 UTI (urinary tract infection) N39.0 Neutropenic fever D70.9; R50.81 Assessment & Plan Assessment & Plan (1) Breast cancer, left: Comment: August 2024 pathology 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 (2) Hypertension: Code(s): I10 - Essential (primary) hypertension Category: Medical Plan: Continue on current blood pressure medication. Avoid salt intake and encourage healthy diet and regular exercise. (3) UTI (urinary tract infection): Code(s): N39.0 - Urinary tract infection, site not specified Category: Medical Plan: Finished her course of Keflex denies any symptoms at this time. (4) Neutropenic fever: Code(s): D70.9 - Neutropenia, unspecified; R50.81 - Fever presenting with conditions classified elsewhere Category: Medical Plan: The patient will continue to be monitored post-hospital discharge for neutropenic fever and associated complications. Emphasis will be placed on regular oncological follow-ups to evaluate her response to chemotherapy and manage any potential adverse effects. Attention will be given to her dietary intake and hydration status due to taste aversion post-chemotherapy. All interventions focus on improving her overall condition while maintaining vigilance for fluctuating body temperatures. Strongly advised patient that despite her fatigue and chills have been improving she should reach out to her oncologist further discussion. Plan This note was constructed using voice recognition software. While every effort has been made to ensure accuracy and flight operations inspector, still areas may have been included sometimes these areas may affect the content or meeting of the given symptoms. Total time spent caring for the patient today was 30 minutes. This includes time spent before the visit reviewing the chart, time spent during the visit, and time spent after the visit and documentation. Patient was informed and verbally consented to the use of an ambient scribe for clinic note documentation during this visit.
[2025-02-03 10:20] VITALS: BP 126/70; PULSE 102; TEMP 36.2; O2SAT 99; BMI 18.8
--- OUTSIDE RECORDS SUMMARY | 2025-02-03 12:06 | XMS_ITS | Continuity of Care Document ---
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 Name Role Phone Po Juni PALACIOS Primary Care Physician Encounter [facility] [id number] Date(s): 01/16/25 - 01/19/[address] [address]- Encounter Diagnosis Neutropenic fever(Final) - 01/16/25 Discharge Disposition: A-D/C Home Attending Physician: David Galvin MD Admitting Physician: Chioma Daniels MD Referring Physician: Not on Staff, Referring MD Encounter Type: Disch IP Allergies, Adverse Reactions, Alerts Substance Criticality Severity [...] Soft Stop, 09/13/24 9:10:00 AM EDT, Tablet, [id number], Partial fill upon patient request if the prescription is for a schedule II opioid drug. Start Date: 09/13/24 Status: Ordered Quantity: 2.0 Unit: tablet Repeat number: 1 cephalexin monohydrate 500 mg oral capsule 1 capsule = 500 mg, By Mouth, Every 12 hours, for 5 days, # 10 capsule, 0 Refills, Acute 01/24/25 1:19:00 PM EDT, 01/19/25 1:19:00 PM EST, Capsule, [facility], Partial fill upon patient request if the prescription is for a schedule II opioid drug., 161, cm, 01/19/25 8:47:00 EST, Height, 54.3, kg, 01/17/25 21:17:00 EST, Dry Weight Start Date: 01/19/25 Stop Date: 01/24/25 Status: Ordered Quantity: 10.0 Unit: capsule Repeat number: 1 Conjugated Estrogens By Mouth, 0 Refills, Maintenance, 09/16/24 10:11:00 AM EDT, Partial fill upon patient request if theprescription is for a schedule II opioid drug. Start Date: 09/16/24 Status: Ordered Repeat number: 1 dexamethasone 4 mg oral tablet See Instructions, 2 tabs (8mg) By Mouth once a day for 3 days as directed after chemo, with food, #24 tablet, 0 Refills, Maintenance, 12/27/24 9:29:00 AM EST, [id number], Partial fill upon patient request, 161, cm, 12/27/24 8:52:00 EST, Height, 56.4, kg, 12/06/24 9:58:00 EST, Dry Weight Start Date: 12/27/24 Status: Ordered Quantity: 24.0 Unit: tablet Repeat number: 1 gabapentin 100 mg oral capsule 100 mg, 1, capsule, By Mouth, 2 times a day, may increase dose by 1 cap Qd every 3d if well tolerated but not effective, up to 3 cap PO BID, # 60 capsule, Refills 0, Tot. Refills 0, Maintenance, 12/21/24 11:07:00 AM EST, Route to Pharmacy Electronically, [id number], Partial fill upon patient request if the prescription is for a schedule II opioid drug., 161, cm, 12/20/24 8:54:00 EST, Height, 56.4, kg, 12/06/24 9:58:00 EST, Dry Weight Start Date: 12/21/24 Status: Ordered Quantity: 60.0 Unit: capsule Repeat number: 1 lidocaine-prilocaine 2.5%-2.5% topical cream 1 application, Topically, Once, apply to port 45 min before use, # 30 Gm, 0 Refills, Soft Stop, 10/18/24 4:31:00 PM EST, Cream, [id number], Partial fill upon patient request if the prescription is for a schedule II opioid drug., 1 application Topically Once,Instr:apply to port 45 min before use, 161, cm, 10/18/24 13:49:00 EST, Height, 57.3, kg, 09/29/24 10:00:00 EST, Dry Weight Start Date: 10/18/24 Status: Ordered Quantity: 30.0 Unit: g Repeat number: 1 losartan 50 mg oral tablet 50 mg, Tablet, By Mouth, 01/19/25 9:00:00 AM EST Start Date: 01/19/25 Stop Date: 01/19/25 Status: Completed Repeat number: 1 losartan 50 mg oral tablet 1 tablet = 50 mg, By Mouth, Daily Start Date: 01/17/25 Status: Ordered Repeat number: 1 mirtazapine 7.5 mg oral tablet 1 tablet = 7.5 mg, By Mouth, Daily at bedtime, # 30 tablet, 0 Refills, Maintenance, 01/13/25 2:05:00PM EST, [id number], Partial fill upon patient request if the prescription is for a scheduleII opioid drug., 161, cm, 01/13/25 13:41:00 EST, Height, 54.3, kg, 12/30/24 10:11:00 EST, Dry Weight Start Date: 01/13/25 Status: Ordered Quantity: 30.0 Unit: tablet Repeat number: 1 Multi Vitamin+ 0 Refills, Maintenance, 09/13/24 8:06:00 AM EDT, Partial fill upon patient request if the prescription is for a schedule II opioid drug. Start Date: 09/13/24 Status: Ordered Repeat number: 1 olanzapine 2.5 mg oral tablet See Instructions, 1 tablet By Mouth at bedtime for 4 nights after each chemo, as directed. May cause drowsiness., # 16 tablet, Refills 0, Tot. Refills 0, Maintenance, 12/27/24 9:29:00 AM EST, Instructions Replace Required Details, Route to Pharmacy Electronically, [id number], Partial fill upon patient request if the prescription is for a schedule II opioid drug., 161, cm, 12/27/24 8:52:00 EST, Height, 56.4, kg, 12/06/24 9:58:00 EST, Dry Weight Start Date: 12/27/24 Status: Ordered Quantity: 16.0 Unit: tablet Repeat number: 1 ondansetron 8 mg oral tablet 1 tablet = 8 mg, By Mouth, Every 8 hours, PRN Nausea & Vomiting, # 30 tablet, 1 Refills, Maintenance, 12/27/24 9:30:00 AM EST, [id number], Partial fill upon patient request if the prescription is for a schedule II opioid drug., 161, cm, 12/27/24 8:52:00 EST, Height, 56.4, kg, 12/06/24 9:58:00 EST, Dry Weight Start Date: 12/27/24 Status: Ordered Quantity: 30.0 Unit: tablet Repeat number: 2 pantoprazole 40 mg oral delayed release tablet See Instructions, TAKE 1 TABLET BY MOUTH TWICE A DAY, # 60 tablet, 0 Refills, Maintenance, 12/07/24 8:10:00 AM EST, 161, cm, 12/06/24 11:33:00 EST, Height, 56.4, kg, 12/06/24 9:58:00 EST, Dry Weight Start Date: 12/07/24 Status: Ordered Quantity: 60.0 Unit: tablet Repeat number: 1 PARoxetine 10 mg oral tablet 10 mg, 1, tablet, By Mouth, Daily at bedtime, # 30 tablet, Refills 0, Maintenance, 01/19/25 1:05:00 PM EST, Partial fill upon patient request if the prescription is for a schedule II opioid drug. Start Date: 01/19/25 Status: Ordered Quantity: 30.0 Unit: tablet Repeat number: 1 Probiotic Formula By Mouth, Daily, 0 Refills, Maintenance, 09/13/24 8:06:00 AM EDT, Partial fill upon patient requestif the prescription is for a schedule II opioid drug. Start Date: 09/13/24 Status: Ordered Repeat number: 1 prochlorperazine 5 mg oral tablet 1 tablet = 5 mg, By Mouth, Every 6 hours, PRN Nausea & Vomiting, # 30 tablet, 1 Refills, Maintenance, 12/27/24 9:30:00 AM EST, [id number], Partial fill upon patient request if the prescription is for a schedule II opioid drug., 161, cm, 12/27/24 8:52:00 EST, Height, 56.4, kg, 12/06/24 9:58:00 EST, Dry Weight Start Date: 12/27/24 Status: Ordered Quantity: 30.0 Unit: tablet Repeat [...] Status: Ordered Repeat number: 1 Vitamin D 97673 iu oral capsule 50,000 International_Units, By Mouth, Daily, Refills 0, Maintenance, 09/13/24 8:06:00 AM EDT, Partial fill upon patient request if the prescription is for a schedule II opioid drug. 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 INDICATION / CLINICAL QUESTION: Fever FINDINGS: LINES AND TUBES: Right jugular Port-A-Cath tip in good position in the lower SVC at the level of the dawood. LUNGS AND PLEURA: Clear lungs. Normal pulmonary vascularity. No pleural effusion. No pneumothorax. HEART, MEDIASTINUM AND WILDER: Normal. BONES AND SOFT TISSUES: Moderate scoliosis. No acute findings. IMPRESSION: No acute abnormality. WSN: [id number] Ordering Physician: Renata Chung Dictated By: Ruel Ortega MD Dictated Date/Time: 01/16/25 3:44 pm Reviewed By: Ruel Ortega MD Signed By: Ruel Ortega MD Signed Date/Time: 01/16/25 3:44 pm Transcribed By: WALDEMAR Transcribed Date/Time: 01/16/25 3:44 pm Vital Signs Most recent to oldest [Reference Range]: 1 2 3 Height 161 cm (01/19/25 2:27 PM) 161 cm (01/19/25 8:47 AM) 161 cm (01/18/25 8:00 AM) Weight 54.3 kg (01/17/25 9:17 PM) Oxygen Saturation [94-100 %] 100 % (01/19/25: PM) 99 % (01/19/25 8:47 AM) 98 % (01/19/25 12:00 AM) Pulse Rate [55-90 bpm] 106 bpm *H* (01/19/25: PM) 100 bpm *H* (01/19/25 8:47 AM) 103 bpm *H* (01/19/25 12:00 AM) Body Mass Index [18.5-24.99 kg/m2] 20.95 kg/m2 (01/17/25 9:17 PM) Blood Pressure [90-138/55-84 mm Hg] 153/91mm Hg *H* (01/19/25 2:27 PM) 144/92mm Hg *H* (01/19/25 11:12 AM) 156/80mm Hg *H* (01/19/25 8:47 AM) Respiratory Rate [16-30 br/min] 18 br/min (01/19/25 2:27 PM) 18 br/min (01/19/25 8:47 AM) 17 br/min (01/19/25 12:00 AM) Temperature [96.8-100.4 DegF] 97.0 DegF (01/19/25 2:27 PM) 97.7 DegF (01/19/25 8:47 AM) 97.8 DegF (01/19/25 12:00 AM) Liters per Minute 0 L/min (01/17/25 11:26 AM) Mode of Delivery (Oxygen) Room air (01/19/25 2:27 PM) Room air (01/19/25 8:47 AM) Room air (01/19/25 12:00 AM) Blood pressure sites Arm, right (01/19/25 2:27 PM) Arm, right (01/19/25 8:47 AM) Arm, right (01/19/25 12:00 AM) Temperature Route Oral (01/19/25 2:27 PM) Oral (01/19/25 8:47 AM) Oral (01/19/25 12:00 AM) Dry Weight 54.3 kg (01/17/25 9:17 PM) Social History Social History Type Response Smoking Status Former smoker, quit more than 30 days ago entered on: 09/13/24 Sex Female Sex Representation Female (finding) History and physical note * Dimas Bass MD: PERFORM, MODIFY Event Display: History and Physical Hospital Authored Date: Patient: ??JULY CARNEY ? Age:??74 Years?Sex:??Female?:??1950?? Chief Complaint/Reason for Consultation Fever,??neutropenia History of Present Illness 74-year-old female with past medical history significant for left breast cancer status post CarboTaxol and plan for doxorubicin + cyclophosphamide 2 weeks ago, she was seen at the [facility] due to diarrhea, feeling weak and being passed out.?? Hemoglobin was 7.9.?? She was provided with a liter of crystalloid fluids.?? She was discharged home. 4 days ago, she was at the [facility] when she was noted to have an ANC of 0.?? She was prescribed prophylactic Levaquin but patient did not take it due to concern for side effects Today, she was once again at the [facility].?? She was noted to have a temperature of 100.9, ANCof 0.5 and hemoglobin 7.1/hematocrit 19.5.?? She was provided with 500 cc normal saline bolus, 1 unit of packed red blood cells.?? Cultures were obtained from the port and periphery.?? The plan was to give 2 g cefepime ?? ER course: Vital signs: Afebrile, heart rate in the upper limit of normal, normotensive, nontachypneic, nonhypoxic Exam: Tachycardic.?? The rest of exam is benign ?? Workup: EKG: Normal sinus rhythm Poor R-wave progression ; consider anterior infarct, lead placement, or normal variant Abnormal ECG No previous ECGs available Confirmed by HOME CARD MD ([id number]) on 01/16/2025 5:02:19 PM ?? CBC: WBC 0.9, hemoglobin 7.1, hematocrit 19.5, platelet count 152 Coags: Normal Chemistry: Hypokalemia LFTs: Low total protein, albumin proBNP: 135 High-sensitivity troponin: 13 TSH: Normal Troponin viral screen: Negative Urinalysis: 2 WBCs.?? WBCs, 1-2 RBC, slight bacteria Urine culture: Added on despite only 2 WBCs Remember this is in the setting of neutropenia Blood cultures: In process ?? Chest portable: No acute abnormality ?? Interventions performed: Cefepime 2 g IV ?? On my evaluation in the emergency room: Vital signs: Afebrile, heart rate in the upper limit of normal, systolic blood pressure in the upper limit of normal, nontachypneic, nonhypoxic Patient feels generally weak, decreased appetite, unable to tolerate p.o. intake ?? Review of Systems Constitutional: No weight loss? HEENT: No visual loss. No hearing loss, congestion, runny nose , sore throat. Skin: No rash ?? Cardiovascular: No chest discomfort. No palpitations. Respiratory: No shortness of breath, cough. Gastrointestinal: No?vomiting or diarrhea. No abdominal pain or blood in stool. Genitourinary: No burning micturition. No urinary frequency or incontinence. Musculoskeletal: No muscle pain, back pain, joint pain or stiffness. Endocrine: No reports of sweating. No cold or heat intolerance. No polyuria or polydipsia. Hematologic: No bleeding or bruising. Immunologic/Allergic: No itchy eyes/Itchy nose/Sneezing/Watery eyes Lymphatics: No enlarged lymph nodes. Neurologic: No headache, unilateral weakness, numbness or tingling in the extremities. No change inbowel or bladder control. Psychiatric: No depression or anxiety. Objective ? Vital Signs?? Temperature: 97.9 DegF (01/16/25 20:21:00) Temperature Route: Oral (01/16/25 20:21:00) Pulse Rate:??94 bpm??High (01/16/25 20:21:00) Respiratory Rate: 20 br/min (01/16/25 20:21:00) Systolic Blood Pressure:??142 mm Hg??High (01/16/25 20:21:00) Diastolic Blood Pressure:??90 mm Hg??High (01/16/25 20:21:00) Blood pressure sites: Arm, left (01/16/25 20:21:00) Mean Arterial Pressure: 62 mm Hg (01/16/25 13:51:00) Mean Arterial Pressure: 47 mm Hg (01/16/25 13:51:00) Pulse Pressure: 52 mm Hg (01/16/25 20:21:00) Oxygen Saturation: 100 % (01/16/25 20:21:00) Mode of Delivery (Oxygen): Room air (01/16/25 20:21:00) Early Warning Score: 3 (01/16/25 20:22:02) ? Intake/Output? 01/16 16:31 01/16 07:00 01/15 07:00 01/14 07:00 01/13 07:00 ?? 01/16 20:56 03 20:56 03 06:59 02 06:59 01/14 06:59 Intake ?380 ?380 ?0 ?0 ?0 Output ?0 ?0 ?0 ?0 ?0 Net Total ?380 ?380 ?0 ?0 ?0 ? Physical Exam GENERAL: Thin and frail, chronically ill-appearing, no acute cardiorespiratory distress?? HEAD: Normocephalic, atraumatic. EYES: No conjunctival injection. No scleral icterus. Pale?? conjunctiva EARS: No tenderness, no discharge. NOSE: No asymmetry. MOUTH AND THROAT: No oral thrush. Dry?? mucous membranes NECK: No JVP elevation, No masses. Range of motion full. HEART: Regular rate ??and ??regular rhythm, no murmurs, no clicks, no rubs , no gallops. CHEST:??chest port: No evidence of infection externally. Symmetric with respirations. No accessory muscle use, No wheezes, crackles. ABDOMEN: Normoactive bowel sounds. No tenderness without guarding. No increase in liver or spleen size. No masses palpable. GENITOURINARY: No CV angle tenderness. No suprapubic tenderness. No Herrera catheter in place.?? Rectal exam is deferred. MUSCULOSKELETAL: Range of motion full in all extremities , no obvious deformity , no increased warmth , no effusion?? VASCULAR: All pulses brisk and equal, Capillary refill time < 2sec LYMPHATIC: No cervical, axillary or inguinal adenopathy. Skin: Dry and thin. No evidence of cellulitis, no other major skin lesions?? NEUROLOGIC: No deficit on gross motor and sensory exam Alert and oriented to person, place, time, and situation?? Psychiatric: No delusions, hallucinations, SI or HI Assessment/Plan Assessment:??74-year-old female with past medical history significant for left breast cancer statuspost CarboTaxol and plan for doxorubicin + cyclophosphamide 2 weeks ago, she was seen at the [facility] due to diarrhea, feeling weak and being passed out.??Hemoglobin was 7.9.??She was provided with a liter of crystalloid fluids.??She was discharged home. 4 days ago, she was at the [facility] when she was noted to have an ANC of 0.??She was prescribed prophylactic Levaquin but patient did not take it due to concern for side effects Today, she was once again at the [facility].??She was noted to have a temperature of 100.9, ANC of 0.5 and hemoglobin 7.1/hematocrit 19.5.??She was provided with 500 cc normal saline bolus, 1 unitof packed red blood cells.??Cultures were obtained from the port and periphery.??The plan was to giv e 2 g cefepime ?? Neutropenic fever (D70.9):? - ANC less than 500 - will be on neutropenic precautions - will follow the blood cultures drawn, urine culture?? - Initial therapy is cefepime 2 g IV every 8 hours to cover for most Gram negatives including pseudomonas -Hold enhanced Gram-positive coverage with vancomycin for now unless with unstable vital signs, mucositis or GP growth? - no evidence of fungal infection such as oral thrush?? - Continue antibiotic therapy until patient is afebrile and absolute neutrophil count greater than 500?? - antipyretics, analgesics, antiemetics ordered ?? Breast cancer, left breast (C50.912):??On chemotherapy Neutropenia (D70.9):?? Anemia (D64.9):?? Chemotherapy-induced transfuse with irradiated blood products, transfuse for Hgb < 7.0, platelets < 10K Leflunomide is nonformulary ?? Hypokalemia (E87.6):? Unable to tolerate p.o. potassium chloride??and other p.o. Provide IV fluids: D5 LR?with 40 mill equivalents potassium chloride at??60 mL/h??while with limited p.o. intake ?? 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 Continue Entecavir ?? Hypertension (I10):? Hold losartan IV fluid boluses as needed ?? GERD (gastroesophageal reflux disease) (K21.9):? Continue PPI ?? Generalized anxiety disorder (F41.1):? Continue paroxetine Continue mirtazapine ?? VTE Prophylaxis:? Pneumoboots ?? CODE STATUS: Full code? Ongoing medical necessity: IV supportive care IV antimicrobials?? Surveillance of symptoms ?? Discharge Planning:?? TBD The above document was completed by performing history, physical examination, reconciling multiple medications, review of laboratory and imaging?? All assessment and plan were discussed with the patient??and requested feedback with attempts to maximize understanding for the care provided. This required approximately 75 minutes to complete. ? Histories Allergies Allergies ?(Active and Proposed Allergies Only) simvastatin? (Severity: Unknown severity, Onset: Unknown) Macrobid? (Severity: Unknown severity, Onset: Unknown) ? Past Medical History/Problem List Active Problems(5) Breast cancer, left breast Generalized anxiety disorder GERD (gastroesophageal reflux disease) Hypertension Reactivation of hepatitis B viral hepatitis ? Past Surgical History Tonsillectomy ? Social History Alcohol Details:??Use: Past. Exercise Details:??Regular exercise: Yes. Nutrition/Health Details:??Caffeine intake amount: daily. Sexual Details:??Preferred pronoun: She/her. Substance Abuse Details:??Use: Never. Tobacco Details:??Use: Former smoker, quit more than 30 days ago. ? Family History Mother: Gallbladder Ca Uncle??(MATERNAL): Cancer of breast Son: Throat Aunt??(MATERNAL): Breast cancer ? Medications Home Medications Ascorbic Acid (Vitamin C)??By Mouth Daily bifidobacterium-lactobacillus (Probiotic Formula)??By Mouth Daily Conjugated Estrogens??By Mouth Dexamethasone (dexamethasone 4 mg oral tablet)??See Instructions 2 tabs (8mg) By Mouth once a day for 3 days as directed after chemo, with food Entecavir (entecavir 0.5 mg oral tablet)??1 tab(s) 0.5 Milligram By Mouth Daily Ergocalciferol (Vitamin D 68359 iu oral capsule)??50,000 International Unit By Mouth Daily Gabapentin (gabapentin 100 mg oral capsule)??100 Milligram 1 capsule By Mouth 2 times a day may increase dose by 1 cap Qd every 3d if well tolerated but not effective, up to 3 cap PO BID Leflunomide (Arava)??By Mouth Daily Levofloxacin (levoFLOXacin 750 mg oral tablet)??1 tab(s) 750 Milligram By Mouth Every 24 hours for 7 Days Lidocaine/Prilocaine Topical (lidocaine-prilocaine 2.5%-2.5% topical cream)??1 lielani Topically Once apply to port 45 min before use Lorazepam (Ativan 0.5 mg oral tablet)??1 tab(s) 0.5 Milligram By Mouth Once May takeone hour prior to procedure. No driving once taken. Losartan??By Mouth Daily Mirtazapine (mirtazapine 7.5 mg oral tablet)??1 tab(s) 7.5 Milligram By Mouth Daily at bedtime Olanzapine (olanzapine 2.5 mg oral tablet)??See Instructions 1 tablet By Mouth at bedtime for 4 nights after each chemo, as directed. May cause drowsiness. Ondansetron (ondansetron 8 mg oral tablet)??1 tab(s) 8 Milligram By Mouth Every 8 hours as needed Nausea & Vomiting Pantoprazole (pantoprazole 40 mg oral delayed release tablet)??See Instructions TAKE 1 TABLET BY MOUTH TWICE A DAY Paroxetine (PARoxetine 10 mg oral tablet)??10 Milligram 1 tablet By Mouth Daily at bedtime TAKE 1 TABLET BY MOUTH EVERYDAY AT BEDTIME PROCHLORperazine (prochlorperazine 5 mg oral tablet)??1 tab(s) 5 Milligram By Mouth Every 6 hours as needed Nausea & Vomiting Progesterone??By Mouth ? Results Recent Labs BLOOD BANK Blood Type A Positive ()?? 01/16/2025 13:58 Antibody Screen Negative ()?? 01/16/2025 13:58 RBC Unit ID [id number] ()?? 01/16/2025 15:32 RBC Available IS ()?? 01/16/2025 15:32 ?? BLOOD COUNT & DIFF WBC 0.9 k/mm3 (Critical)?? 01/16/2025 10:20 RBC 2.17 m/mm3 (Low)?? 01/16/2025 10:20 Hgb 7.1 Gm/dL (Low)?? 01/16/2025 10:20 Hct 19.5 % (Critical)?? 01/16/2025 10:20 MCV 89.9 femtoliters ()?? 01/16/2025 10:20 MCH 32.7 pg ()?? 01/16/2025 10:20 MCHC 36.4 Gm/dL ()?? 01/16/2025 10:20 Platelet Count 152 k/mm3 ()?? 01/16/2025 10:20 RDW-SD 44.7 femtoliters ()?? 01/16/2025 10:20 MPV 9.1 femtoliters (Low)?? 01/16/2025 10:20 Nucleated RBC (Automated) 0.0 #/100 WBC'S ()?? 01/16/2025 10:20 Abs. NRBC 0.0 k/mm3 ()?? 01/16/2025 10:20 Abs. Neut 0.1 k/mm3 (Low)?? 01/16/2025 10:20 Abs. Lymph 0.3 k/mm3 (Low)?? 01/16/2025 10:20 Abs. [place] 0.5 k/mm3 ()?? 01/16/2025 10:20 Abs. Eo 0.0 k/mm3 ()?? 01/16/2025 10:20 Abs. Baso 0.0 k/mm3 ()?? 01/16/2025 10:20 Neut % 12.4 % (Low)?? 01/16/2025 10:20 Lymph % 30.3 % ()?? 01/16/2025 10:20 [place] % 55.1 % (High)?? 01/16/2025 10:20 Eos % 0.0 % ()?? 01/16/2025 10:20 Baso % 1.1 % ()?? 01/16/2025 10:20 Imm Gran 1.1 % ()?? 01/16/2025 10:20 Abs. Imm Gran 0.0 k/mm3 ()?? 01/16/2025 10:20 ?? CARDIAC Nt-Probnp 135 pg/mL (High)?? 01/16/2025 14:38 High Sensitivity Troponin (HSTnT) 13 ng/L ()?? 01/16/2025 14:38 ?? CHEM GENERAL Sodium 135 mmol/L ()?? 01/16/2025 14:38 Potassium 3.4 mmol/L (Low)?? 01/16/2025 14:38 Chloride 101 mmol/L ()?? 01/16/2025 14:38 Bicarbonate Level 22 mmol/L ()?? 01/16/2025 14:38 Anion Gap 12 mmol/L ()?? 01/16/2025 14:38 Sodium (POC) POC Cartridge 133 mmol/L ()?? 01/13/2025 14:50 Potassium (POC) POC Cartridge 3.4 mmol/L (Low)?? 01/13/2025 14:50 Glucose Level 117 mg/dL (High)?? 01/16/2025 14:38 Glucose, POC 145 mg/dL (High)?? 01/16/2025 13:57 BUN 14 mg/dL ()?? 01/16/2025 14:38 BUN (POC) POC Cartridge 12 mg/dL ()?? 01/13/2025 14:50 Creatinine-Blood 0.64 mg/dL ()?? 01/16/2025 14:38 Creatinine (POC) POC Cartridge 0.6 mg/dL ()?? 01/13/2025 14:50 Estimated GFR Creatinine 93 ML/MIN/1.73 M2 ()?? 01/16/2025 14:38 Calcium 8.7 mg/dL ()?? 01/16/2025 14:38 Magnesium 1.9 mg/dL ()?? 01/16/2025 14:38 Protein, Total 5.5 Gm/dL (Low)?? 01/16/2025 14:38 Albumin 3.3 Gm/dL (Low)?? 01/16/2025 14:38 AG Ratio 1.5 ()?? 01/16/2025 14:38 Alkaline Phosphatase 133 units/L (High)?? 01/16/2025 14:38 AST (SGOT) 24 units/L ()?? 01/16/2025 14:38 ALT (SGPT) 28 units/L ()?? 01/16/2025 14:38 Bilirubin, Total 0.4 mg/dL ()?? 01/16/2025 14:38 Lactate 0.9 mmol/L ()?? 01/16/2025 14:38 ?? COAG INR 1.1 ()?? 01/16/2025 14:38 Protime (PT) 11.3 seconds ()?? 01/16/2025 14:38 APTT 26.4 seconds ()?? 01/16/2025 14:38 ?? ENDOCRINE/TUMOR MARKER TSH 1.65 uIU/mL ()?? 01/16/2025 14:38 ?? HEME OTHER Hold Blue Top SPECIMEN DISCARDED AFTER 4 HOURS. ()?? 01/16/2025 14:38 ?? UA/URINALYSIS Appear/Color, Urine YELLOW ()?? 01/16/2025 11:08 Clarity TURBID (Abnormal)?? 01/16/2025 11:08 Specific [place], Urine 1.030 ()?? 01/16/2025 11:08 pH, Urine 6.0 ()?? 01/16/2025 11:08 Albumin, Urine 2+ (Abnormal)?? 01/16/2025 11:08 Glucose, Urine NEGATIVE ()?? 01/16/2025 11:08 Ketones, Urine NEGATIVE ()?? 01/16/2025 11:08 Bilirubin, Urine NEGATIVE ()?? 01/16/2025 11:08 Hemoglobin, Urine NEGATIVE ()?? 01/16/2025 11:08 Nitrite, Urine NEGATIVE ()?? 01/16/2025 11:08 Leukocyte, Urine NEGATIVE ()?? 01/16/2025 11:08 Urobilinogen 2 mg/dL (Abnormal)?? 01/16/2025 11:08 WBC's, Urine 2 /HPF ()?? 01/16/2025 11:08 RBC's, Urine 2 /HPF ()?? 01/16/2025 11:08 Bacteria SLIGHT HPF (Abnormal)?? 01/16/2025 11:08 Squamous Epith 1 /HPF ()?? 01/16/2025 11:08 Hyaline Cast 1 LPF ()?? 01/16/2025 11:08 Mucus HEAVY /LPF ()?? 01/16/2025 11:08 Culture Indication CULTURE NOT INDICATED ()?? 01/16/2025 11:08 ?? VIROLOGY Influenza A PCR NEGATIVE ()?? 01/16/2025 13:57 Influenza B PCR NEGATIVE ()?? 01/16/2025 13:57 RSV PCR NEGATIVE ()?? 01/16/2025 13:57 COVID-19 PCR Specimen Source NASAL ()?? 01/16/2025 13:57 COVID-19 PCR Result NEGATIVE ()?? 01/16/2025 13:57 ? EKG study * Event Display: ECG 12-Lead Authored Date: Please click on pdf link to open report * Event Display: ECG 12-Lead Authored Date: Ventricular Rate: 90 BPM Atrial Rate: 90 BPM P-R Interval: 172 ms QRS Duration: 78 ms Q-T Interval: 368 ms QTC Calculation(Bazett): 450 ms P [place]: 74 degrees R [place]: 7 degrees T [place]: 34 degrees Normal sinus rhythm Poor R-wave progression ; consider anterior infarct, lead placement, or normal variant Abnormal ECG No previous ECGs available Confirmed by HOME CARD MD ([id number]) on 01/16/2025 5:02:19 PM [place]: HOME CARD MD Cardiology * Event Display: Cardiac Rhythm Strips Authored Date: Hospital Progress note * Maura Abraham RN: PERFORM, SIGN, VERIFY Event Display: Progress Note Hospital Authored Date: Patient: JULY CARNEY Age: 74 years Sex: Female : 1950 Associated Diagnoses: None Author: Maura Abraham RN Findings Problem Related to Alteration in Immunologic : Alteration in Immunologic Function/new 01/18/2025 14:42 EST Alteration Immunologic Status Related to Neutropenia Goals & Outcomes, Immunologic Pt will maintain/resume normal fluid/electrolyte balance, Pt willmaintain intact skin integrity, Pt will not develop complications r/t immobility, Inflammatory/infectious process will resolve Interventions, Immunologic Maintain patent IV access, Monitor Intake & Output, Maintain and monitor nutritional intake, Assess skin integrity BH Goals/Interventions, Immunologic Yes Immunologic, Problem Start 01/17/2025 21:26 Reviewed Plan with, Immunologic Patient, Spouse/significant other Patient Progression, Immunologic Status Pt progressing according to plan . Evaluation Patient alert and oriented x4, sitting up in bed. Patient on room air, no labored breathing noted. Patient on neutropenic precautions. Patient's skin is intact, no edema noted. Patient denies any pain. Patient is tolerating ambulating in the room independently and is continent of bowel and bladder with last BM on 01/18. Patient to be discharged home today, will continue to monitor.. * Koko Pruett: PERFORM, SIGN, VERIFY Event Display: Progress Note Hospital Authored Date: Patient: JULY CARNEY Age: 74 years Sex: Female : 1950 Associated Diagnoses: None Author: Koko Pruett Findings Problem Related to Alteration in Nutrition : Alteration in Nutrition/new 01/19/2025 1:00 EST Alteration in Nutrition Related to Malnutrition Goals & Outcomes, Nutrition Pt will achieve/maintain adequate nutrition status, Pt will maintain adequate GI/ function appropriate for pt Interventions, Nutrition Consider small snacks or frequent meals if pt has difficulty BH Goals/Interventions, Nutrition Yes Nutrition, Problem Start 01/18/2025 14:43 Reviewed plan with, Nutrition Patient Patient Progression, Nutrition Pt progressing according to plan . Evaluation Pt alert oriente x 4. Reported pain relief after p.o tylenol given for headache. Instructed to nofify RN if stool collected for lab test. . * Glenis PALACIOS, David: PERFORM Event Display: Progress Note Hospital Authored Date: [id number] Patient: ??JULY CARNEY ? Age:??74 Years?Sex:??Female?:??1950?? Subjective ?Patient ??seen and examined today ?c/o weakness Review of Systems diarrhea improving Objective Vital Signs?? Temperature: 97.5 DegF (01/18/25 08:00:00) Temperature Route: Oral (01/18/25 08:00:00) Pulse Rate:??105 bpm??High (01/18/25 08:00:00) Respiratory Rate: 18 br/min (01/18/25 08:00:00) Systolic Blood Pressure:??152 mm Hg??High (01/18/25 08:34:00) Diastolic Blood Pressure:??88 mm Hg??High (01/18/25 08:34:00) Blood pressure sites: Arm, right (01/18/25 08:00:00) Mean Arterial Pressure: 109 mm Hg (01/18/25 08:00:00) Pulse Pressure: 64 mm Hg (01/18/25 08:00:00) Oxygen Saturation: 100 % (01/18/25 08:00:00) Mode of Delivery (Oxygen): Room air (01/18/25 08:00:00) Early Warning Score: 6 (01/18/25 08:41:51) ? Physical Exam dry mouth Lungs: Clear to auscultation, no wheezes, rales or rhonchi Heart: RRR, No murmurs, gallops or rubs Abdomen: Soft, non tender, normal Bowel sounds TRANSLATOR/INTERPRETER: Alert awake and oriented X 3 ?? Results Recent Labs BACTERIOLOGY Urine Culture Results Preliminary report (Abnormal)?? 01/16/2025 11:08 Blood Culture Results Preliminary report ()?? 01/16/2025 14:25 Blood Culture Isolate 1 Comment ()?? 01/16/2025 14:25 Blood Cult 2 Results Preliminary report ()?? 01/16/2025 14:38 Blood Culture 2 Isolate 1 Comment ()?? 01/16/2025 14:38 Urine Culture Isolate 1 Gram negative rods (Abnormal)?? 01/16/2025 11:08 ?? BLOOD BANK RBC Unit ID [id number] ()?? 01/16/2025 15:32 RBC Available PT ()?? 01/16/2025 15:32 ?? BLOOD COUNT & DIFF WBC 1.4 k/mm3 (Critical)?? 01/18/2025 01:24 RBC 2.76 m/mm3 (Low)?? 01/18/2025 01:24 Hgb 8.6 Gm/dL (Low)?? 01/18/2025 01:24 Hct 25.3 % (Low)?? 01/18/2025 01:24 MCV 91.7 femtoliters ()?? 01/18/2025 01:24 MCH 31.2 pg ()?? 01/18/2025 01:24 MCHC 34.0 Gm/dL ()?? 01/18/2025 01:24 Platelet Count 205 k/mm3 ()?? 01/18/2025 01:24 RDW-SD 46.8 femtoliters ()?? 01/18/2025 01:24 MPV 9.0 femtoliters (Low)?? 01/18/2025 01:24 Nucleated RBC (Automated) 0.0 #/100 WBC'S ()?? 01/18/2025 01:24 Abs. NRBC 0.0 k/mm3 ()?? 01/18/2025 01:24 Abs. Neut 0.5 k/mm3 (Low)?? 01/18/2025 01:24 Abs. Lymph 0.4 k/mm3 (Low)?? 01/18/2025 01:24 Abs. [place] 0.5 k/mm3 ()?? 01/18/2025 01:24 Abs. Eo 0.0 k/mm3 ()?? 01/18/2025 01:24 Abs. Baso 0.0 k/mm3 ()?? 01/18/2025 01:24 Neut % 33.1 % (Low)?? 01/18/2025 01:24 Lymph % 30.9 % ()?? 01/18/2025 01:24 [place] % 33.1 % (High)?? 01/18/2025 01:24 Eos % 0.0 % ()?? 01/18/2025 01:24 Baso % 0.7 % ()?? 01/18/2025 01:24 Imm Gran 2.2 % ()?? 01/18/2025 01:24 Abs. Imm Gran 0.0 k/mm3 ()?? 01/18/2025 01:24 ?? CARDIAC High Sensitivity Troponin (HSTnT) 15 ng/L (High)?? 01/17/2025 00:40 ?? CHEM GENERAL Sodium 138 mmol/L ()?? 01/18/2025 01:24 Potassium 3.2 mmol/L (Low)?? 01/18/2025 01:24 Chloride 105 mmol/L ()?? 01/18/2025 01:24 Bicarbonate Level 21 mmol/L (Low)?? 01/18/2025 01:24 Anion Gap 12 mmol/L ()?? 01/18/2025 01:24 Glucose, POC 94 mg/dL ()?? 01/17/2025 00:25 BUN 10 mg/dL ()?? 01/18/2025 01:24 Creatinine-Blood 0.56 mg/dL ()?? 01/18/2025 01:24 Estimated GFR Creatinine 96 ML/MIN/1.73 M2 ()?? 01/18/2025 01:24 Calcium 8.7 mg/dL ()?? 01/18/2025 01:24 Phosphorus 2.7 mg/dL ()?? 01/18/2025 01:24 Magnesium 2.0 mg/dL ()?? 01/18/2025 01:24 ?? UA/URINALYSIS Appear/Color, Urine LIGHT YELLOW ()?? 01/17/2025 18:28 Specific [place], Urine 1.019 ()?? 01/17/2025 18:28 pH, Urine 5.5 ()?? 01/17/2025 18:28 Albumin, Urine TRACE (Abnormal)?? 01/17/2025 18:28 Glucose, Urine NEGATIVE ()?? 01/17/2025 18:28 Ketones, Urine 1+ (Abnormal)?? 01/17/2025 18:28 Bilirubin, Urine NEGATIVE ()?? 01/17/2025 18:28 Hemoglobin, Urine NEGATIVE ()?? 01/17/2025 18:28 Nitrite, Urine NEGATIVE ()?? 01/17/2025 18:28 Leukocyte, Urine NEGATIVE ()?? 01/17/2025 18:28 Urobilinogen NORMAL mg/dL ()?? 01/17/2025 18:28 WBC's, Urine 1 /HPF ()?? 01/17/2025 18:28 RBC's, Urine <1 /HPF ()?? 01/17/2025 18:28 Bacteria SLIGHT HPF (Abnormal)?? 01/17/2025 18:28 Squamous Epith 1 /HPF ()?? 01/17/2025 18:28 Hyaline Cast 1 LPF ()?? 01/17/2025 18:28 Mucus SLIGHT /LPF ()?? 01/17/2025 18:28 ?? URINE OTHER Est Creatinine Clearance 75.27 mL/min ()?? 01/18/2025 02:26 ? Assessment/Plan Diagnoses Sepsis ??(A41.9) 1. ??Neutropenic fever ??(D70.9) 2. ??Breast cancer, left breast ??(C50.912) 3. ??Neutropenia ??(D70.9) 4. ??Anemia ??(D64.9) 5. ??Hypokalemia ??(E87.6) 6. 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 ??Hypertension ??(I10) 8. ??GERD (gastroesophageal reflux disease) ??(K21.9) 9. ??Generalized anxiety disorder ??(F41.1) 10. ??Neutropenic fever ??(D70.9) ?? Assessment:?74-year-old female with past medical history significant for left breast cancer status post CarboTaxol and plan for doxorubicin + cyclophosphamide 2 weeks ago, she was seen at the cancer center due to diarrhea, feeling weak and being passed out Now admitted for neutropenic fever ? Neutropenic fever (D70.9):?? - ANC less than 500 - will be on neutropenic precautions -Blood cultures so far negative -Urine cx- gram negatives. -Patient started on IV cefepime 2 g IV 8 hours.?? -oncology following GI PCR and cdiff ordered but her diarrhea improved and now has formed stool she is dehydrated- will give hydration? Breast cancer, left breast (C50.912): On chemotherapy Neutropenia (D70.9): Anemia (D64.9): Chemotherapy-induced transfuse with irradiated blood products, transfuse for Hgb < 7.0, platelets < 10K Leflunomide is nonformulary ?? Hypokalemia (E87.6):?? will replace. ?? 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 Was on Entecavir: Patient mentions that this was stopped couple of weeks ago. ?? Hypertension (I10):?? Can restart her losartan. ?? GERD (gastroesophageal reflux disease) (K21.9):?? Continue PPI ?? Generalized anxiety disorder (F41.1):?? Continue paroxetine Continue mirtazapine ?? VTE Prophylaxis:?? Pneumoboots ?? CODE STATUS: Full code ?d/w?? at bedside ? Consult note * Annalise Brown MD: PERFORM Event Display: Consultation Note Authored Date: [id number] Patient: ??JULY CARNEY ? Age:??74 Years?Sex:??Female?:??1950?? Reason for Consult/Visit Neutropenic fever Primary Oncologist Dr. French Hematology/Oncology History 74-year-old female with a past history of left breast cancer presents with fever and neutropenia.??Few days ago??patient had diarrhea, was feeling weak, was seen at the [facility] and given fluids. ??She was found to have an ANC of 0. ??She??was prescribed prophylactic Levaquin the patient did not take it due to concerns of side effects. ??On the day of presentation she was again seen at the [facility] center was found to have a temperature of 100.9, ANC 0.5 hemoglobin 7.1 and was given 500 cc of normal saline and transferred to [facility] for further management.??At [facility] she received??1 unit of PRBC.??Chest x-ray was normal, blood cultures were obtained and she received 2 g of cefepime. ?? 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 C1D1 10/04/2024, s/p C2 4 cycles of carboplatin+paclitaxel followed by 4 cycles of doxorubicin and cyclophosphamide ??C2 onwards- dose reduced by 10% to prevent cytopenia and treatment delay. C2D15 delayed 1 week atpatient's request ??C4 paclitaxel - 12/13-12/27/2024 -carboplatin discontinued due to hypersensitivity -Most recent cycle 5-day 1 on 01/03/25 with cyclophosphamide and doxorubicin ?Subjective: ??? Reports ongoing diarrhea ever since she came in.?? Usually she has some diarrhea when she takesstool softeners for constipation but it goes away on its own.?? This time it has lingered on. Review of Systems All systems reviewed and the pertinent positive and negative as mentioned above Problem List/Past Medical History Ongoing Breast cancer, left breast Generalized anxiety disorder GERD (gastroesophageal reflux disease) Hypertension Reactivation of hepatitis B viral hepatitis Procedure/Surgical History ???Tonsillectomy Family History Breast cancer: Aunt. Cancer of breast: Uncle. Gallbladder Ca: Mother. Throat: Son. Thyroid cancer: Negative: Son. Social History Alcohol Use: Past. Exercise Regular exercise: Yes. Nutrition/Health Caffeine intake amount: daily. Sexual Preferred pronoun: She/her. Substance Abuse Use: Never. Tobacco Use: Former smoker, quit more than 30 days ago. Allergies Macrobid simvastatin Medications Inpatient Acetaminophen Tablet, 650 mg, By Mouth, Every 4 hours, PRN Cefepime Extended IVPB, 2000 mg, IVPB, Every 8 hours gabapentin 100 mg oral capsule, 100 mg, By Mouth, 2 times a day Heparin Flush 100 units/mL Inj, 500 units= 5 mL, IV Push Slowly, Daily, PRN Lactobacillus Acidophilus Bulgaricus Tablet, 4 tablet, By Mouth, 3 times a day Melatonin Tablet, 3 mg, By Mouth, Daily at bedtime, PRN MiraLax Powder, 17 Gm= 1 pack/packet, By Mouth, Daily, PRN mirtazapine 15 mg oral tablet, 7.5 mg, By Mouth, Daily at bedtime Multivitamin Tablet, 1 tablet, By Mouth, Daily NaCL 0.9% 500 mL, 500 mL, IV Infusion NaCL 0.9% Flush, 3 mL, IV Push, Every 8 hours NaCL 0.9% Flush, 3 mL, IV Push, Every 8 hours, PRN Ondansetron Inj, 4 mg, IV Push, Every 6 hours, PRN pantoprazole 40 mg oral delayed release tablet, 40 mg, By Mouth, Daily PARoxetine 10 mg oral tablet, 10 mg, By Mouth, Daily at bedtime PROCHLORperazine Inj, 5 mg= 1 mL, IV Push, Every 6 hours, PRN Senna Tablet, 8.6 mg= 1 tablet, By Mouth, 2 times a day, PRN Vitamin C 250 mg oral tablet, 250 mg, By Mouth, Daily Home Arava, By Mouth, Daily Ativan 0.5 mg oral tablet, 0.5 mg= 1 tablet, By Mouth, Once Conjugated Estrogens, By Mouth dexamethasone 4 mg oral tablet, See Instructions entecavir 0.5 mg oral tablet, 0.5 mg= 1 tablet, By Mouth, Daily, 3 refills gabapentin 100 mg oral capsule, 100 mg= 1 capsule, By Mouth, 2 times a day levoFLOXacin 750 mg oral tablet, 750 mg= 1 tablet, By Mouth, Every 24 hours lidocaine-prilocaine 2.5%-2.5% topical cream, 1 application, Topically, Once losartan 50 mg oral tablet, 50 mg= 1 tablet, By Mouth, Daily mirtazapine 7.5 mg oral tablet, 7.5 mg= 1 tablet, By Mouth, Daily at bedtime Multi Vitamin+ olanzapine 2.5 mg oral tablet, See Instructions ondansetron 8 mg oral tablet, 8 mg= 1 tablet, By Mouth, Every 8 hours, PRN, 1 refills pantoprazole 40 mg oral delayed release tablet, See Instructions PARoxetine 10 mg oral tablet, 10 mg= 1 tablet, By Mouth, Daily at bedtime Probiotic Formula, By Mouth, Daily prochlorperazine 5 mg oral tablet, 5 mg= 1 tablet, By Mouth, Every 6 hours, PRN, 1 refills Progesterone, By Mouth Vitamin C, By Mouth, Daily Vitamin D 76055 iu oral capsule, 05458 International_Units, By Mouth, Daily Physical Exam Vitals & Measurements T:??98.8?F?? TMIN:??97.9?F?? TMAX:??98.8?F?? HR:??99??(Peripheral)?? RR:??18?? BP:??177/97?? SpO2:??100%?? General: Patient in no apparent distress Head: Normocephalic, atraumatic?? EENT: No pallor or icterus noted. Neck: Supple Chest: No scars, sinuses?? Cardiac: S1, S2 heard; No murmur, rubs or gallops. Respiratory: Normal vesicular breath sounds heard; No adventitious sounds?? Abdomen: Soft, nontender,nondistended, normal bowel sounds. Neuro: AOx 3; No focal neurological deficits.?? Extremities: No edema, cyanosis or clubbing; warm and well perfused peripheries Skin: No rash, bleeding or ulcers. Psych: Calm and cooperative?? Lab Results/Pathology CBC?? CMP?? Coag?? Abs. NRBC: 0 k/mm3 (01/17/25 07:32:00) AG Ratio: 1.5 (01/16/25 14:38:00) APTT: 26.4 seconds (01/16/25 14:38:00) Hct:??24.8 %??Low (01/17/25 07:32:00) Alkaline Phosphatase:??133 units/L??High (01/16/25 14:38:00) INR: 1.1 (01/16/25 14:38:00) Nucleated RBC (Automated): 0 #/100 WBC'S (01/17/25 07:32:00) ALT (SGPT): 28 units/L (01/16/25 14:38:00) Protime (PT): 11.3 seconds (01/16/25 14:38:00) RBC:??2.64 m/mm3??Low (01/17/25 07:32:00) Anion Gap: 12 mmol/L (01/17/25 07:32:00) ?? RDW-SD:??48 femtoliters??High (01/17/25 07:32:00) AST (SGOT): 24 units/L (01/16/25 14:38:00) ?? WBC:??1.1 k/mm3??Critical (01/17/25 07:32:00) Bicarbonate Level:??21 mmol/L??Low (01/17/25 07:32:00) ? Bilirubin, Total: 0.4 mg/dL (01/16/25 14:38:00) ? BUN: 13 mg/dL (01/17/25 07:32:00) ? Calcium: 8.7 mg/dL (01/16/25 14:38:00) ? Chloride: 105 mmol/L (01/17/25 07:32:00) ? Creatinine-Blood: 0.58 mg/dL (01/17/25 07:32:00) ? Estimated GFR Creatinine: 95 ML/MIN/1.73 M2 (01/17/25 07:32:00) ? Glucose Level:??117 mg/dL??High (01/16/25 14:38:00) ? Potassium: 4 mmol/L (01/17/25 07:32:00) ? Protein, Total:??5.5 Gm/dL??Low (01/16/25 14:38:00) ? Sodium: 138 mmol/L (01/17/25 07:32:00) ?? 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 She is undergoing evaluation of her source of fevers,source could be GI since she has been having worsening diarrhea.?? Would recommend norovirus/stool evaluation for bacteria/parasites.?? If patient continues to have loose watery stools would need C. difficile evaluation.?? Since the cyclophosphamide and doxorubicin canbe myelosuppressive and possibly try and offset that by giving Neulasta a day after her next chemo. Plan: -Continue managing neutropenic fever with antibiotics as you have been -Would recommend checking stool for infection -Will need outpatient eval after discharge with her primary??oncologist to decide about neulasta after next cycle of chemo ? Discussed with Dr. Soto * Charles PALACIOS, Abraham: PERFORM Event Display: Consultation Note Authored Date: [id number] I have seen and examined the patient with the fellow and agree with the assessment and plan as outlined in this note. Note * Maura Abraham RN: PERFORM Event Display: Discharge/Transfer Note Hospital Authored Date: [id number] Nursing Discharge Note Entered On: 01/19/2025 15:44 EST Performed On: 01/19/2025 15:44 EST by Maura Abraham RN Nursing Discharge Note 2 Discharge Time : 01/19/2025 15:44 EST Discharge Level of Care at Discharge : Home/Fpc/Foster Care Patient Left Unit Via : Wheelchair Patient Accompanied Off Unit with : Significant other, Responsible adult DC Instructions Provided & Signed by Pt : Yes Patient Understands D/C Instructions : Yes Patient Instructions Discharge Signed : Yes Did Pt have Specialty Bed or Wound Vac : No Maura Abraham RN - 01/19/2025 15:44 EST * Glenis PALACIOS, David: PERFORM Event Display: Discharge/Transfer Note Hospital Authored Date: [id number] Patient: ??JULY CARNEY ? Age:??74 Years?Sex:??Female?:??1950?? 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) Hypokalemia (E87.6) Hypertension (I10) GERD (gastroesophageal reflux disease) (K21.9) Generalized anxiety disorder (F41.1) Weakness or fatigue ([id number]) _ Discharge Medications Ascorbic Acid (Vitamin C)??By Mouth Daily bifidobacterium-lactobacillus (Probiotic Formula)??By Mouth Daily Cephalexin (cephalexin monohydrate 500 mg oral capsule)??1 capsule 500 Milligram By Mouth Every 12 hours for 5 Days Conjugated Estrogens??By Mouth Dexamethasone (dexamethasone 4 mg oral tablet)??See Instructions 2 tabs (8mg) By Mouth once a day for 3 days as directed after chemo, with food Ergocalciferol (Vitamin D 62337 iu oral capsule)??50,000 International Unit By Mouth Daily Gabapentin (gabapentin 100 mg oral capsule)??100 Milligram 1 capsule By Mouth 2 times a day may increase dose by 1 cap Qd every 3d if well tolerated but not effective, up to 3 cap PO BID Leflunomide (Arava)??By Mouth Daily Lidocaine/Prilocaine Topical (lidocaine-prilocaine 2.5%-2.5% topical cream)??1 leilani Topically Once apply to port 45 min before use Lorazepam (Ativan 0.5 mg oral tablet)??1 tab(s) 0.5 Milligram By Mouth Once May takeone hour prior to procedure. No driving once taken. Losartan (losartan 50 mg oral tablet)??1 tab(s) 50 Milligram By Mouth Daily Mirtazapine (mirtazapine 7.5 mg oral tablet)??1 tab(s) 7.5 Milligram By Mouth Daily at bedtime Olanzapine (olanzapine 2.5 mg oral tablet)??See Instructions 1 tablet By Mouth at bedtime for 4 nights after each chemo, as directed. May cause drowsiness. Ondansetron (ondansetron 8 mg oral tablet)??1 tab(s) 8 Milligram By Mouth Every 8 hours as needed Nausea & Vomiting Pantoprazole (pantoprazole 40 mg oral delayed release tablet)??See Instructions TAKE 1 TABLET BY MOUTH TWICE A DAY Paroxetine (PARoxetine 10 mg oral tablet)??10 Milligram 1 tablet By Mouth Daily at bedtime PROCHLORperazine (prochlorperazine 5 mg oral tablet)??1 tab(s) 5 Milligram By Mouth Every 6 hours as needed Nausea & Vomiting Progesterone??By Mouth ? Medications Started Keflex Medications Discontinued none Doses Changed none PCP Follow-Up/Heads-Up follow clinically Future Appointments Thursday 11:20 AM EDT ?? With: Iglesia PALACIOS, Krystal Cartwright Where: [facility] [address] [place] [address]- Status: Pending Thursday 3:30 PM EDT ?? With: Dorinda FOSTER, Florecita Zimmer Where: [facility] [address] [place] [address]- Status: Pending Objective Assessment and Plan Assessment:?74-year-old female with past medical history significant for left breast cancer status came with low grade fevers,??diarrhea, feeling weak and being passed out and now admitted for neutropenic fever. ?? Neutropenic fever (D70.9):?? UTI - ANC less than 500 -Blood cultures urine cultures pending at this time. -Treated with ??IV cefepime -Urine cx showed- E.coli -she had diarrhea - plan was to check GI PCR and CDIFF but her diarrhea resolved quickly and??couldnot send sample -now she feels better??and would like to go home d/w hematology fellow-??Annalise Guardado>agreed??with dc planning d/w antimicrobial stewardship -??advised can??transition to Keflex 500mg po bid for next 5 days ? Breast cancer, left breast (C50.912): On chemotherapy Neutropenia (D70.9): Anemia (D64.9): Chemotherapy-induced s/p 1 unit of PRBC Leflunomide? 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 Was on Entecavir: Patient mentions that this was stopped couple of weeks ago. ?? Hypertension (I10):?? losartan. ?? GERD (gastroesophageal reflux disease) (K21.9):?? Continue PPI ?? Generalized anxiety disorder (F41.1):?? Continue paroxetine Continue mirtazapine ?? . Physical Exam Patient ??seen and examined today feels much better and would like to go home chest: b/l cta, heart:s1s2+, abdomen:s oft, bs+, non tender, neuro: aaox3, extremities: no edema d/w hematology meds reviewed with patient. Consultants Dr. Charles PALACIOS, Abraham - Hematology/oncology Follow-Up Appointments Added Follow Up ?Time Frame ?Comments Juni Crews MD?2 weeks Home Health Face to Face ^HomeHealthFTF 34 ??minutes spent on discharge * Leigh BAZZI, Maura: PERFORM Event Display: Patient Education/Instruction Authored Date: [id number] Inpatient Adult Discharge Instructions. [place] [id number] Name: JULY CARNEY : 1950?? Visit: 01/16/2025 16:31?? Current Date: 01/19/2025 14:48 ?? Account: [id number]?? Inpatient Adult Discharge Instructions We would like to thank you for allowing us to assist you with your healthcare needs. The following includes patient education materials and information regarding your injury/illness. Our entire staffstrives to provide an excellent experience for our patients and their families. PLEASE ENSURE YOU FOLLOW-UP PER THE INSTRUCTIONS BELOW! ?? YOUR OPINION IS IMPORTANT TO US! Please complete the survey you may receive by mail or email. Your feedback will be used to make improvements to the healthcare experiences of our patients and their families. Surveys are administered by [employer] ?? If further treatment with your primary care physician or another doctor is recommended, it is important for you to keep the appointment. Call your primary care physician or return to the Emergency Department immediately if your condition worsens, fails to improve, or new symptoms develop. If you need to find a doctor, you can call [facility] [employer] for a referral at [phone] or toll free at [phone]) or log in to [email or web address] ?? [facility], in keeping with [facility] guidance, no longer requires face masks for staff, patientsor visitors in most situations. Similiar to time spent indoors at other locations, there is the chance that you were exposed to repiratory viruses during your time with us (such as flu or COVID-19). If you develop symptoms concerning for a viral respiratory infection, please seek testing (and treatment if indicated) from your medical provider or home test kit. ?? You can view and manage your care through the patient portal or by using a health care leilani of your choosing. Rabbit is a website that allows you to securely view your medical information including your hospital discharge summary, office visit summaries, medications and follow-up visits. You can also request appointments, renew medications, and request access to your medical information using a health care leilani of your choosing, or just ask a question. You are entitled to know the individuals who participated in your treatment. This information is available within your medical record and will be provided upon your request. You can enroll at [email or web address] or register d uring your next office visit. You have been discharged from [facility], Patient Care Unit: S3??. If you have any questions regarding these instructions, including results of studies pending, afteryou leave, please call us and we will be happy to assist you 08/06. [facility] Your Care Team Attending Physician David Galvin MD?? Consulting Providers David Galvin MD?? Discharging Providers David Galvin MD Reason for Your Visit neutropenic fever, sympt anemia?? Your Diagnosis Breast cancer, left breast Neutropenia Anemia Hypokalemia Reactivation of hepatitis B viral hepatitis Hypertension GERD (gastroesophageal reflux disease) Generalized anxiety disorder Neutropenic fever Sepsis Weakness or fatigue Tests Performed Below is a partial list of the tests performed during your hospitalization. You may have had other tests and procedures not included in this list. Please discuss all test results with your provider. Blood Culture Blood Culture #2 Blood Culture 2 Results Blood Culture Result BUN Calcium Level CBC CBC w/ Differential Comprehensive Metabolic Panel COVID-19, RSV, and Flu A/B, Rapid PCR Creatinine Electrolytes GI Profile, Stool, PCR?-- Results Pending -- Glucose Level GLUCOSE POC High??Sensitivity??Troponin T Hold Blue Top Tube INR Lactate Level Magnesium Level Phosphorus Level ProBNP PTT TSH with T4 Reflex (Adults Only) Type and Screen Urinalysis w/hold for Urine Culture XR Chest Portable Add On Lab Order?? B Type Natriuretic Peptide (NT-proBNP) (ProBNP)?? BUN?? Blood Culture?? Blood Culture #2?? Blood Culture 2 Results?? Blood Culture Result?? C.diff PCR, w Rfx Toxin/Ag?? CBC?? CBC w/ Differential?? COVID-19, RSV, and Flu A/B, Rapid PCR?? Calcium Level?? Comprehensive Metabolic Panel?? Creatinine?? Electrolytes?? GI Profile, Stool, PCR?? Glucose Level?? Glucose POC?? High??Sensitivity??Troponin T?? Hold Blue Top Tube?? INR?? Lactic Acid Level (Lactate Level)?? Magnesium Level?? PTT?? Phosphorus Level?? TSH with T4 Reflex (Adults Only)?? Transfuse RBCs?? Type and Screen?? Urinalysis w/hold for Urine Culture?? Chest Portable (XR Chest Portable)?? Primary Care Provider Juni Crews MD? Advance Directive Health Care Proxy on File Yes - Health Care Proxy Discharge Vitals Temperature: 97 DegF Height: 161 cm Pulse Rate:??106 bpm??High Weight: 54.3 kg Respiratory Rate: 18 br/min Body Mass Index: 20.95 kg/m2 Systolic Blood Pressure:??153 mm Hg??High Body surface area: 1.56 Diastolic Blood Pressure:??91 mm Hg??High ?? Oxygen Saturation: 100 % ?? Studies Pending All studies ordered during this hospital stay have been completed unless listed below. Please discuss all pending results with your provider listed above in these instructions. ?? Add On Lab Order?? C.diff PCR, w Rfx Toxin/Ag?? GI Profile, Stool, PCR?? Transfuse RBCs?? What to do next Instructions From Your Doctor ?? Orders?? sent to [facility], ??01/19/25 13:30:00 EST?? Prescriptions??, ??01/19/25 13:30:00 EST?? Scheduled Follow-Up Appointments Thursday 11:20 AM EDT ?? With: Iglesia PALACIOS, Krystal Cartwright Where: [facility] [address] [place] [phone]- Status: Pending Thursday 3:30 PM EDT ?? With: Dorinda FOSTER, Florecita Zimmer Where: [facility] [address] [place] [phone]- Status: Pending You Need to Schedule the Following Appointments Follow Up with??Juni Crews MD Why: 2 weeks Where: [address] [place] [address]- Business (1) Discharge Medications JULY CARNEY :1950 Visit Date:01/16/2025 Medications: Please continue your medications until treatment is completed or stopped by your provider. Medications not listed below should be discontinued. Discuss any questions related to medications with your provider. What How Much When Instructions Next Dose New Cephalexin (cephalexin monohydrate 500 mg oral capsule) 1 capsule Oral Every 12 hours Duration: 5 [facility] today 01/19??at 7pm Changed Losartan (losartan 50 mg oral tablet) 1 tab(s) Oral Daily tomorrow 3 at 7am Changed Paroxetine (PARoxetine 10 mg oral tablet) 1 tab(s) Oral Daily at Bedtime today 01/19??at bedtime Unchanged Ascorbic Acid (Vitamin C) Oral Daily tomorrow 01/20 at 7am Unchanged bifidobacterium-lactobacillus (Probiotic Formula) Oral Daily tomorrow 01/20 at 7am Unchanged Conjugated Estrogens Oral per instructions Unchanged Dexamethasone (dexamethasone 4 mg oral tablet) See instructions 2 tabs (8mg) By Mouth once a day for 3 days as directed after chemo, with food ?? per instructions Unchanged Ergocalciferol (Vitamin D 43711 iu oral capsule) 50,000 International Unit Oral Daily tomorrow 01/20 at 7am Unchanged Gabapentin (gabapentin 100 mg oral capsule) 1 capsule Oral Twice a day may increase dose by 1 cap Qd every 3d if well tolerated but not effective, up to 3 cap PO BID ?? today 01/19 at 7pm Unchanged Leflunomide (Arava) Oral Daily tomorrow 01/20 at 7am Unchanged Lidocaine/ Prilocaine Topical (lidocaine-prilocaine 2.5%-2.5% topical cream) 1 leilani Topically Once apply to port 45 min before use ?? per instructions Unchanged Lorazepam (Ativan 0.5 mg oral tablet) 1 tab(s) Oral Once May takeone hour prior to procedure. No driving once taken. ?? per instructions Unchanged Mirtazapine (mirtazapine 7.5 mg oral tablet) 1 tab(s) Oral Daily at Bedtime today 01/19 at bedtime Unchanged Multivitamin (Multi Vitamin+) Unchanged Olanzapine (olanzapine 2.5 mg oral tablet) See instructions 1 tablet By Mouth at bedtime for 4 nights after each chemo, as directed. May cause drowsiness. ?? per instructions Unchanged Ondansetron (ondansetron 8 mg oral tablet) 1 tab(s) Oral Every 8 hours as needed for Nausea & Vomiting as needed Unchanged Pantoprazole (pantoprazole 40 mg oral delayed release tablet) See instructions TAKE 1 TABLET BY MOUTH TWICE A DAY ?? tonight 01/19 at 7pm Unchanged PROCHLORperazine (prochlorperazine 5 mg oral tablet) 1 tab(s) Oral Every 6 hours as needed for Nausea & Vomiting as needed Unchanged Progesterone Oral per instructions Pharmacy Information [facility]: [address], [place] [id number] [phone] ?? What How Much When Comments Stop Taking Entecavir (entecavir 0.5 mg oral tablet) 1 tab(s) Oral Daily Stop Taking Levofloxacin (levoFLOXacin 750 mg oral tablet) 1 tab(s) Oral Every 24 hours Duration: 7 Days Prescription Given During Visit Cephalexin (cephalexin monohydrate 500 mg oral capsule) - 1 capsule = 500 mg, By Mouth, Every 12 hours, # 10 capsule, 0 Refills, [facility], [address] [place] [phone]?? Laboratory Results Below is a partial list of the most recent Laboratory test results done prior to this discharge. You may have had other tests and procedures not included in this list. Please discuss all test resultswith your provider. Est Creatinine Clearance - 82.64 mL/min (01/19/2025) RBC Available - PT (01/16/2025) RBC Unit ID - [id number] (01/16/2025) Blood Culture (01/16/2025) ???Blood Culture Results - Preliminary report???Blood Culture Specimen Source - BLOOD Blood Culture #2 (01/16/2025) ???Blood Cult 2 Results - Preliminary report???Blood Culture 2 Specimen Source - BLOOD Blood Culture 2 Results (01/16/2025) ???Blood Culture 2 Isolate 1 - Comment Blood Culture Result (01/16/2025) ???Blood Culture Isolate 1 - Comment BUN (01/19/2025) ???BUN - 7 mg/dL Calcium Level (01/19/2025) ???Calcium - 8.3 mg/dL CBC (01/17/2025) ???WBC - 1.1 k/mm3???RBC - 2.64 m/mm3???Hgb - 8.5 Gm/dL???Hct - 24.8 %???MCV - 93.9 femtoliters???MCH - 32.2 pg???MCHC - 34.3 Gm/dL???Platelet Count - 175 k/mm3???RDW-SD - 48.0 femtoliters???MPV - 9.1 femtoliters???Nucleated RBC (Automated) - 0.0 #/100 WBC'S???Abs. NRBC - 0.0 k/mm3 CBC w/ Differential (01/19/2025) ???WBC - 2.2 k/mm3???RBC - 2.65 m/mm3???Hgb - 8.4 Gm/dL???Hct - 23.8 %???MCV - 89.8 femtoliters???MCH - 31.7 pg???MCHC - 35.3 Gm/dL???Platelet Count - 236 k/mm3???RDW-SD - 45.1 femtoliters???MPV - 9.6 femtoliters???Nucleated RBC (Automated) - 0.0 #/100 WBC'S???Abs. NRBC - 0.0 k/mm3???Abs. Neut - 1.1 k/mm3???Abs. Lymph - 0.4 k/mm3???Abs. [place] - 0.6 k/mm3???Abs. Eo - 0.0 k/mm3???Abs. Baso - 0.0 k/mm3???Neut % - 50.6 %???Lymph % - 18.9 %???[place] % - 27.2 %???Eos % - 0.5 %???Baso % - 0.5 %???Imm Gran - 2.3 %???Abs. Imm Gran - 0.1 k/mm3 Comprehensive Metabolic Panel (01/16/2025) ???Sodium - 135 mmol/L???Potassium - 3.4 mmol/L???Chloride - 101 mmol/L???Bicarbonate Level - 22 mmol/L???Anion Gap - 12 mmol/L???Glucose Level - 117 mg/dL???BUN - 14 mg/dL???Creatinine-Blood - 0.64 mg/dL???Estimated GFR Creatinine - 93 ML/MIN/1.73 M2???Calcium - 8.7 mg/dL???Protein, Total - 5.5 Gm/ dL???Albumin - 3.3 Gm/dL???AG Ratio - 1.5???Alkaline Phosphatase - 133 units/L???AST (SGOT) - 24 units/L???ALT (SGPT) - 28 units/L???Bilirubin, Total - 0.4 mg/dL COVID-19, RSV, and Flu A/B, Rapid PCR (01/16/2025) ???Influenza A PCR - NEGATIVE???Influenza B PCR - NEGATIVE???RSV PCR - NEGATIVE???COVID-19 PCR Specimen Source - NASAL???COVID-19 PCR Result - NEGATIVE Creatinine (01/19/2025) ???Creatinine-Blood - 0.51 mg/dL???Estimated GFR Creatinine - 99 ML/MIN/1.73 M2 Electrolytes (01/19/2025) ???Sodium - 138 mmol/L???Potassium - 3.5 mmol/L???Chloride - 108 mmol/L???Bicarbonate Level - 19 mmol/L???Anion Gap - 11 mmol/L Glucose Level (01/19/2025) ???Glucose Level - 88 mg/dL GLUCOSE POC (01/17/2025) ???Glucose, POC - 94 mg/dL High??Sensitivity??Troponin T (01/17/2025) ???High Sensitivity Troponin (HSTnT) - 15 ng/L Hold Blue Top Tube (01/16/2025) ???Hold Blue Top - SPECIMEN DISCARDED AFTER 4 HOURS. INR (01/16/2025) ???INR - 1.1???Protime (PT) - 11.3 seconds Lactate Level (01/16/2025) ???Lactate - 0.9 mmol/L Magnesium Level (01/18/2025) ???Magnesium - 2.0 mg/dL Phosphorus Level (01/18/2025) ???Phosphorus - 2.7 mg/dL ProBNP (01/16/2025) ???Nt-Probnp - 135 pg/mL PTT (01/16/2025) ???APTT - 26.4 seconds TSH with T4 Reflex (Adults Only) (01/16/2025) ???TSH - 1.65 uIU/mL Type and Screen (01/16/2025) ???Blood Type - A Positive???Antibody Screen - Negative Urinalysis w/hold for Urine Culture (01/17/2025) ???Appear/Color, Urine - LIGHT YELLOW???Specific [place], Urine - 1.019???pH, Urine - 5.5???Albumin, Urine - TRACE???Glucose, Urine - NEGATIVE???Ketones, Urine - 1+???Bilirubin, Urine - NEGATIVE???Hemoglobin, Urine - NEGATIVE???Nitrite, Urine - NEGATIVE???Leukocyte, Urine - NEGATIVE???Urobilinogen - NORMAL? ?WBC's, Urine - 1 /HPF? ?RBC's, Urine - <1 /HPF? ?Bacteria - SLIGHT? ?Squamous Epith - 1 /HPF???Hyaline Cast - 1 LPF???Mucus - SLIGHT???Hold Urine Culture - Testing available 48 hours from time of collection. You will be contacted within 72 hours with your results. Allergies (NKA means No Known Allergies) Macrobid simvastatin Problems Active Problems??(5) Breast cancer, left breast?? Generalized anxiety disorder?? GERD (gastroesophageal reflux disease)?? Hypertension?? Reactivation of hepatitis B viral hepatitis?? Education Materials Below is the list of Educational Leaflet Providered with your Discharge Instructions. WebMD Ignite Patient Education - Neutropenia?? WebMD Ignite Patient Education - Anemia, Type Not Specified (Adult)?? WebMD Ignite Patient Education - Anemia?? Valuables and Belongings I fully understand and agree that [facility] accepts no responsibility for all my personal property including clothing, toilet articles, radios, jewelry, dentures, hearing aids, rings, money, or any other property that is in my possession or is brought to me after admission. I understand certain valuables may be placed in a hospital safe for a short period of time. I understand that the hospital is not liable for loss or damage due to accident, fire, or other natural occurrence while said property is in the safe. I accept full responsibility for any personal property that I keep with me, and will not hold the hospital responsible in case of loss or disappearance. I acknowledge that i have been encouraged to send valuables and belongings home. ?? Review of Valuable and Belonging List: With patient, With witness Date for Pt to Sign Valuables/Belongings: 01/18/25 05:30:00 ?? Other Discharge Information ? Pulmonary Rehab Status?? Pulmonary Rehab Discharge Status?? Respiratory Rate: 18 br/min ? Common Emergency Awareness Tips IS IT A STROKE? Act FAST and Check for these signs: FACE Does the face look uneven? ARM Does one arm drift down? SPEECH Does their speech sound strange? TIME Call at any sign of stroke ?? Heart Attack Signs Chest discomfort: Most heart attacks involve discomfort in the center of the chest and lasts more than a few minutes, or goes away and comes back. It can feel like uncomfortable pressure, squeezing, fullness or pain. Discomfort in upper body: Symptoms can include pain or discomfort in one or both arms, back, neck, jaw or stomach. Shortness of breath: With or without discomfort. Other signs: Breaking out in a cold sweat, nausea, or lightheaded. Remember, MINUTES DO MATTER. If you experience any of these heart attack warning signs, call to get immediate medical attention! ?? Smoking can increase your chances of developing chronic health problems and can cause harmful effects to other family members in your house. If you smoke, you are strongly encouraged to quit. Please call [facility] at [phone] or [phone] ([phone]) or log in to [email or web address] for referrals to smoking cessation programs. ?? 820 Suicide & Crisis Lifeline is available 08/06 if you or someone you know needs to find a reason to keep living. By calling 292 you'll be connected to a skilled, trained counselor at a crisis center in your area. INPATIENT DISCHARGE INSTRUCTIONS SIGNATURE JULY ELLISON Location:[facility] Registration Date and Time:01/16/2025 16:31 EST Primary Care Physician: Juni Crews MD, Attending Physician: Glenis PALACIOS, [facility], I JULY CARNEY, have received the above patient education materials/instructions and have verbalized understanding. If ambulance or transport services are being used I further acknowledge being given a choice of service. ?? If you need to contact me, please call me at this number: . Patient/Loin Trimmer Name: Patient/Loin Trimmer Signature: Relationship to Patient: Witness Name/Signature: Date: * David Galvin MD: PERFORM, SIGN, VERIFY Event Display: Patient Education Handout Authored Date: [id number] * Maura Abraham RN: PERFORM Event Display: Patient Education Leaflets Authored Date: [id number] Neutropenia ?? 35690 Neutropenia White blood cells (WBCs) help protect the body from infection. Neutrophils are a type of white blood cell. Their main job is to help the body fight bacterial and fungal infections. Neutropenia occurswhen there are fewer neutrophils in the blood than normal. It can range from mild to severe. This depends on the number of neutrophils in the blood. Severe neutropenia puts a person at higher risk for having more infections. Bacterial and fungal infections are most common. Your healthcare provider can tell you more about your condition and whether it needs to be treated. What causes neutropenia? There are??two main types of neutropenia: congenital and acquired. Each type has many causes: ??? Congenital neutropenia. These are the types that are present at . They are caused by certain rare genetic conditions, such as Kostmann syndrome. Most often the neutropenia is mild and normal for certain ethnic groups, including people of , , or Congregational descent. ??? Acquired neutropenia. This type is not present at . Causes include: o Certain medicines, such as antibiotics and chemotherapy medicines o Certain autoimmune conditions o Certain viral, bacterial, or parasitic infections o Too little folate or vitamin B-12 in the diet o Underlying bone marrow problem, such as leukemia or myelodysplastic syndrome (MDS) o Other causes ?? How is neutropenia diagnosed? Your healthcare provider may check for neutropenia if you have frequent infections. Your provider may also check for neutropenia if you???re having certain treatments, such as chemotherapy, which is known to cause a lower neutrophil count. Neutropenia is often found when a routine complete blood count is drawn. Tests will be done to confirm the problem. These may include: ??? A complete blood count (CBC). This test measures the amounts of the different types of cells in your blood. This includes the WBCs. The WBC count can be broken down further to find the number of neutrophils and immature neutrophils (bands) in your blood. This is called an absolute neutrophil count (ANC). ??? A blood smear. This test checks for the different types of blood cells in your blood and how they appear. A sample of your blood is spread on a glass slide and viewed under a microscope. A stain is used so the blood cells can be seen. ??? A bone marrow aspiration and biopsy. This test checks for problems withhow your bone marrow makes blood cells. A needle is used to remove a sample of the bone marrow in your hip bone. The sample is then sent to a lab to be tested for problems. ?? How is neutropenia treated? If there is a clear cause of neutropenia, it is addressed. For instance, if a medicine is the cause, it may be stopped or changed. ??? Often no treatment is needed formild cases, such as those linked to ethnicity. ??? For moderate to severe cases, treatment is likely needed. This may include: o G-CSF (granulocyte-colony stimulating factor). This is a special type of protein. It helps promote the growth and activity of neutrophils. G-CSF is given by injection. o Bone marrow transplant.??This treatment replaces diseased bone marrow cells with healthy cells from a matched donor. This treatment is done only in specific severe cases. ?? What is the long-term outcome of neutropenia? The outcome of neutropenia varies for each person. For some people, neutropenia may resolve after afew weeks or months. For other people, it may be long- lasting. In these cases, ongoing care and treatment may be needed. Your healthcare provider will talk to you more about what to expect from your c ondition. ?? When to call your healthcare provider Call your healthcare provider right away if you have any of the following: ??? Cold sweat or chills??? Chest pain or trouble breathing ??? Sore throat ??? Cough ??? Extreme tiredness or fatigue ??? Nausea and vomiting ??? Redness, warmth, or drainage from any open cuts or wounds ??? Pain or burning with urination; frequent urination ??? Pain, burning, or bleeding in the rectum ??? Severe constipation or diarrhea ??? Bloody stool or urine? Call 911 Fever of 100.4??F (38??C) or higher. Call 911 or go to the emergency room. This is especially important if you have severe neutropenia. This puts you at higher risk for a life-threatening infection. ?? How can I prevent infections? With neutropenia, take extra care to protect yourself from infection. Talk with your healthcare provider about what steps you need to take. What you do depends on how severe your neutropenia is. The following precautions help prevent infections: ??? Wash your hands often, especially before eating and after using the bathroom. Use clean, running water and soap. Scrub for 20 seconds, or for as longas it takes to sing the Happy Birthday song from beginning to end, twice. Or use a hand gel that contains at least 60% alcohol. ??? Stay away from crowds and close contact with others who may be ill.??? Cook meat and eggs all the way through to kill any germs. ??? Carefully wash raw fruits and vegetables. Depending on how severe your neutropenia is, you may need to drop fresh fruits and vegetables from your diet. ??? Clean items you use often with disinfectant wipes. This includes phones and computer keyboards. ??? Don't touch your eyes, nose, and mouth, especially if your hands are not clean. ??? Practice good oral hygiene. Use a soft toothbrush. Also, brush and floss your teeth gently. ??? Always wipe from front to back after a bowel movement. ??? Stay up to date on vaccines advised byyour healthcare provider. ??? Bathe every day and use an unscented lotion to prevent cracked skin. ??? Keep cuts and scrapes clean and covered until they heal. ??? Don't share items such as drinks, eating utensils, towels, toothbrushes, razors, clothing, and sports equipment. ??? Store and handle foods safely to prevent food-borne illness. ??? Protect yourself against pet waste (urine and stool) by using vinyl gloves when cleaning. ??? Always use gloves when gardening. You may have to avoid having live plants in your home. ??? Ask your healthcare provider if you need to take antibiotics before and after having any dental or medical procedures. ??? Ask your healthcare provider if you need towear a special mask near construction sites or farm areas. ?? Last Reviewed Date: 2022 ?? 5537-0785 [employer]. All rights reserved. This information is not intended as a substitute for professional medical care. Always follow your healthcare professional's instructions. ?? * Maura Abraham RN: PERFORM Event Display: Patient Education Leaflets Authored Date: [id number] Anemia, Type Not Specified (Adult) ?? [id number] Anemia, Type Not Specified (Adult) Red blood cells carry oxygen to the tissues and organs of your body. Anemia is a condition in whichyour blood makes fewer than normal, healthy red blood cells. You need iron to make hemoglobin in red blood cells. Hemoglobin is the iron-rich protein that carries oxygen. Iron deficiency anemia is the type of anemia caused due to low-iron levels. It is the most common cause of anemia. Iron deficiency anemia may be caused by: ??? Blood loss. This can be caused by heavy menstrual periods. It can also be caused by bleeding from the stomach or intestines. ??? Major surgery or physical trauma ? Certain medicines or treatments, such as chemotherapy ??? Not??eating enough foods that contain iron. Other causes of anemia include certain vitamin deficiencies, chronic kidney disease, genetic diseases, and other chronic illnesses. Anemia makes you feel tired and run down. When anemia becomes severe, your skin becomes pale. You may feel short of breath or have chest pain during and after physical activity. Other symptoms include: ??? Headaches ??? Extreme fatigue and weakness ??? Chest pain or shortness of breath ??? Fast or irregular heartbeat ??? Pounding or whooshing in your ears ??? Dizziness ??? Leg cramps with physicalactivity ??? Drowsiness Home care Follow these guidelines when caring for yourself at home: ??? Don???t overexert yourself. Pace youractivities as you can tolerate. ??? Eat foods rich in iron, such as beef, poultry, fish, dark greenleafy vegetables, legumes, and nuts. Vitamin C rich foods, such as citrus fruits, peppers, and strawberries may help with iron absorption through the gut. ??? Talk with your healthcare provider before traveling by air or to high altitudes. ??? Follow any instructions to manage anemia given to you by your healthcare provider. ?? Follow-up care Follow up with your healthcare provider, or as advised. You may need other blood tests to find out the exact cause of your anemia. If you had testing done today or recently, it may take several days to get all of the results. You can follow up with your provider to get the results. ?? Call 911 Call 911 if any of the following occur: ??? Shortness of breath or chest pain ??? Dizziness or fainting ??? Vomiting blood or vomit that looks like coffee grounds, or passing bright red- or black-colored stool ?? Last Reviewed Date: 2024 ?? [id number] [employer]. All rights reserved. This information is not intended as a substitute for professional medical care. Always follow your healthcare professional's instructions. ?? * Maura Abraham RN: PERFORM Event Display: Patient Education Leaflets Authored Date: [id number] Anemia ?? 8[address]65 Anemia Anemia is a condition that occurs when your body doesn't have enough healthy red blood cells (RBCs). RBCs are the parts of your blood that carry oxygen all over your body. A protein called hemoglobinallows your RBCs to absorb and release oxygen. Without enough RBCs or hemoglobin, your body doesn'tget enough oxygen. Symptoms of anemia may then occur. What are the symptoms of anemia? Some people with anemia have no symptoms. But most people have symptoms that range from mild to severe. Depending on the cause and severity of the anemia, symptoms can occur slowly or quickly. These can include: ??? Extreme tiredness (fatigue) ??? Weakness ??? Pale skin ??? Shortness of breath ??? Feeling dizzy or fainting ??? Fast or irregular heartbeat ??? Trouble doing normal amounts of activity ??? Yellowing of your eyes, skin, or mouth, and dark urine (jaundice) ??? Headache ??? Cold handsor feet ??? Chest pain ??? Pounding or whooshing sound in your ears ?? What causes anemia? Anemia can happen when your body: ??? Loses too much blood ??? Doesn't make enough RBCs ??? Destroys your RBCs at a faster rate than it can replace them ??? Doesn't make a normal amount of hemoglobin in your RBCs These problems can happen for many reasons, including: ??? A condition you are born with (congenital or inherited). This includes sickle cell disease or thalassemia. ??? Heavy bleeding for any reason. This includes injury, surgery, childbirth, or even heavy menstrual periods. ??? Being low in certain nutrients. These can include iron, folate, or vitamin B-12. ??? Some long-term (chronic) conditions. These include liver disease, diabetes, rheumatoid arthritis, or kidney disease. ??? Some chronic infections. These include tuberculosis or HIV. ??? Cancer. ??? Exposure to certain medicines. This includes chemotherapy medicines. There are different types of anemia. Your healthcare provider can tell you more about the type of anemia you have and what may have caused it. ?? How is anemia diagnosed? To diagnose anemia, your healthcare provider orders blood tests. These can include: ??? Complete blood cell count (CBC). This test measures the amounts of the different types of blood cells. ??? Blood smear. This test checks the size and shape of your blood cells. To do the test, a drop of your blood is looked at under a microscope. A stain is used to make the blood cells easier to see. ??? Iron studies. These tests measure the amount of iron in your blood. Your body needs iron to make hemoglobin in your RBCs. ??? Vitamin B-12 and folate studies. These tests check for some of the components that help give RBCs a normal size and shape. ??? Reticulocyte count. This test measures the amount ofnew young (immature) RBCs that your bone marrow makes. ??? Hemoglobin electrophoresis. This test checks for problems with your hemoglobin in RBCs. ??? Lactate dehydrogenase (LDH) and haptoglobin levels. These tests check the amount of substances in your blood called LDH and haptoglobin. Both LDH and haptoglobin levels can be abnormal with a type of anemia that destroys red blood cells (hemolytic anemia). ??? Bone marrow aspiration and biopsy. These tests are completed at the same time and evaluate the bone marrow where RBCs are made. ?? How is anemia treated? Treatment for anemia is based on the type of anemia, its cause, and the severity of your symptoms. Treatments may include: ??? Diet changes. This includes increasing the amount of certain nutrients in your diet, such as iron, vitamin B-12, or folate. Your healthcare provider may also prescribe nutrient supplements. ??? Medicines. Certain medicines treat the cause of your anemia. Others help buildnew RBCs or ease symptoms. If a medicine is the cause of your anemia, you may need to stop or change it. ??? Blood transfusions. Replacing some of your blood can increase the number of healthy RBCs in your body. ??? Surgery. In some cases, your provider may do surgery to treat the underlying cause of anemia. If you need surgery, your provider will explain the procedure and outline the risks and benefits for you. ?? What are the long-term concerns? If you have certain types of anemia, you can expect a full recovery after treatment. If you have other types of anemia (especially a type you're born with), you'll need to manage it for life. Your provider can tell you more. ?? Last Reviewed Date: 2024 ?? [id number] [employer]. All rights reserved. This information is not intended as a substitute for professional medical care. Always follow your healthcare professional's instructions. ?? Patient Care team information Care Team Personnel Name: Sapna Rivas RN Position: S RN Member Role: Primary Care Nurse Name: Lenora Fernandes RN Position: [facility] Onco RN Member Role: Primary Care Nurse Name: Koko Pruett Position: [facility] RN Member Role: Primary Care Nurse Name: Barbra Raya RN Position: [facility] Onco RN Member Role: Primary Care Nurse Name: Juni Crews MD Position: Reference Physician Member Role: PCP Address: [address] [place] [id number] Telecom: Name: Nando Dyer RN Position: [facility] RN Member Role: Primary Care Nurse Care Team Related Persons Name: MICHEL CARNEY Insurance Providers Guarantor name: JULYANIBAL [employer]WOR[employer] [facility] Information #: 1 Payer: NA Member Number: [id number] Policy Number: NA Group Number: [id number] Health Plan Information #: 2 Payer: NA Member Number: [id number] Policy Number: NA Group Number: NA
--- OUTSIDE RECORDS SUMMARY | 2025-02-03 12:06 | XMS_ITS | Continuity of Care Document ---
Author Organization [facility] Address [address] [place] [id number]- Care Team Providers Care Carder Blankets Name Role Phone Po Juni PALACIOS Primary Care Physician [id number] Date[facility]s): 09/05/24 - 01/27/25 [facility] [address] [place] [id number] Encounter Diagnosis Breast cancer, left breast(Discharge Diagnosis) - 12/06/24 Discharge Disposition: A-D/C Home Attending Physician: Albino Maher DO Admitting Physician: Josué Lockett MD Referring Physician: Krystal Parekh MD Encounter Type: Disch Recurring OP Allergies, Adverse Reactions, Alerts Substance Criticality Severity Reaction Reaction Severity Status simvastatin Active Macrobid Active Medications Acetaminophen Tablet 650 mg, Tablet, By Mouth, Once, Routine, 01/16/25 1:00:00 PM EST, Stop date 01/16/25 11:58:25 AM EST Start Date: 01/16/25 Stop Date: 01/16/25 Status: Completed Repeat number: 1 Arava By Mouth, Daily, 0 Refills, Maintenance, [...] 0 Refills, Maintenance, 12/27/24 9:29:00 AM EST, [facility]/pharmacy #[id number], Partial fill upon patient request, [...] 11:07:00 AM EST, Route to Pharmacy Electronically, [facility]/pharmacy #[id number], Partial fill [...] Soft Stop, 10/18/24 4:31:00 PM EST, Cream, [facility]/pharmacy #[id number], Partial fill [...] tablet, 0 Refills, Maintenance, 01/13/25 2:05:00PM EST, [facility]/pharmacy #[id number], Partial [...] Replace Required Details, Route to Pharmacy Electronically, [facility]/pharmacy #[id number], Partial fill [...] 1 Refills, Maintenance, 12/27/24 9:30:00 AM EST, [facility]/pharmacy #[id number], [...] Quantity: 30.0 Unit: tablet Repeat number: 1 potassium chloride 10 mEq oral capsule, extended release 1 capsule = 10 mEq, By Mouth, 2 times a day, do not crush or chew with a full glass of water with food, # 14 capsule, 0 Refills, Maintenance, 01/20/25 10:19:00 AM EST, CR Capsule, [facility]/pharmacy #[id number], Partial fill upon patient request if the prescription is for a schedule II opioid drug., 161, cm, 01/20/25 9:33:00 EST, Height, 52.7, kg, 01/20/25 9:33:00 EST, Dry Weight Start Date: 01/20/25 Stop Date: 01/27/25 Status: Ordered Quantity: 14.0 Unit: capsule Repeat number: 1 Probiotic Formula By Mouth, [...] 1 Refills, Maintenance, 12/27/24 9:30:00 AM EST, [facility]/pharmacy #[id number], [...] Status: Ordered Repeat number: 1 Vitamin D 76306 iu oral capsule 50,000 International_Units, By Mouth, [...] of hepatitis B viral hepatitis Confirmed Active Diagnosis Diagnosis Type Effective Dates Health Status inical Service Informant Breast cancer, left breast Discharge Diagnosis 12/06/24 Vital Signs Most recent to oldest [Reference Range]: 1 2 3 Height 161 cm (01/25/25 3:53 PM) 161 cm (01/24/25 2:26 PM) 161 cm (01/24/25 9:33 AM) Weight 52.7 kg (01/20/25 9:33 AM) 54.3 kg (12/30/24 10:11 AM) 56.4 kg (12/06/24 9:58 AM) Oxygen Saturation [94-100 %] 100 % (01/24/25 9:33 AM) 98 % (01/20/25 9:33 AM) 100 % (01/16/25 10:17 AM) Pulse Rate [55-90 bpm] 106 bpm *H* (01/24/25 9:33 AM) 106 bpm *H* (01/20/25:33 AM) 125 bpm *H* (01/16/25 10:17 AM) Body Mass Index [18.5-24.99 kg/m2] 20.33 kg/m2 (01/20/25 9:33 AM) 20.95 kg/m2 (12/30/24 10:11 AM) 21.76 kg/m2 (12/06/24 9:58 AM) Blood Pressure [90-138/55-84 mm Hg] 136/75mm Hg (01/24/25 9:33 AM) 125/90mm Hg (01/20/25:33 AM) 126/66mm Hg (01/16/25 10:17 AM) Respiratory Rate [16-30 br/min] 16 br/min (01/16/25 2:00 PM) 18 br/min (11/29/24 12:05 PM) 18 br/min (11/29/24 11:18 AM) Temperature [96.8-100.4 DegF] 97.2 DegF (01/24/25:33 AM) 98.8 DegF (01/20/25:33 AM) 100.9 DegF *H* (01/16/25 11:29 AM) Mode of Delivery (Oxygen) Room air (01/24/25 9:33 AM) Room air (01/20/25 9:33 AM) Room air (01/16/25 10:17 AM) Blood pressure sites Arm, right (01/24/25 9:33 AM) Arm, left (01/20/25 9:33 AM) Arm, right (01/16/25 10:17 AM) Temperature Route Temporal (01/25/25 3:53 PM) Temporal (01/24/25 2:26 PM) Temporal (01/24/25 9:33 AM) Dry Weight 52.7 kg (01/20/25 9:33 AM) 54.3 kg (12/30/24 10:11 AM) 56.4 kg (12/06/24 9:58 AM) Weight Obtained Via Standing scale (01/20/25 9:33 AM) Standing scale (12/30/24 10:11 AM) Standing scale (12/06/24 9:58 AM) Dry Weight Obtained Via Standing scale (01/20/25 9:33 AM) Standing scale (12/30/24 10:11 AM) Standing scale (12/06/24 9:58 AM) Social History Social History Type Response Smoking Status Former smoker, quit more than 30 days ago entered on: 09/13/24 Sex Female Sex Representation Female (finding) Patient Care team information Care Team Personnel Name: Sapna Rivas RN Position: S RN Member Role: Primary Care Nurse Name: Lenora Fernandes RN Position: S Onco RN Member Role: Primary Care Nurse Name: Donna Gallardo RN Position: S Onco RN Member Role: Primary Care Nurse Name: Koko Pruett Position: S RN Member Role: Primary Care Nurse Name: Barbra Raya RN Position: [facility] Onco RN Member Role: Primary Care Nurse Name: Juni Crews MD Position: Reference Physician Member Role: PCP Address: [address] [place] [address] Telecom: Name: Nando Dyer RN Position: S RN Member Role: Primary Care Nurse Care Team Related Persons Name: MICHEL CARNEY Insurance Providers Guarantor name: JULY STALLWORTHOUGH Health Plan Information #: 1 Payer: NA Member Number: [id number] Policy Number: NA Group Number: [id number] Health Plan Information #: 2 Payer: MEDICARE [address] Member Number: [id number] Policy Number: NA Group Number: NA
== END 2025-02-03 10:50 | disposition home or self-care (01) ==
LOC: HO.HMCH 10:15
PROVIDERS: PCP Internal Medicine
DX: C50.912 Malignant neoplasm of unspecified site of left female breast (principal); I10 Essential (primary) hypertension; N39.0 Urinary tract infection, site not specified; D70.9 Neutropenia, unspecified; R50.81 Fever presenting with conditions classified elsewhere

== ENCOUNTER → 2025-02-03 10:14 | Outpatient (BNVA) | payer MEDICARE, SELFPAY | PROVIDERS: PCP Internal Medicine | DX: C50.912 Malignant neoplasm of unspecified site of left female breast (principal); I10 Essential (primary) hypertension; N39.0 Urinary tract infection, site not specified; D70.9 Neutropenia, unspecified; R50.81 Fever presenting with conditions classified elsewhere | CPT/HCPCS: 99212 ==

== ENCOUNTER 2025-02-20 11:19 | Outpatient (AMB) | payer MEDICARE, SELFPAY ==
[2025-02-20 11:31] VITALS: BP 108/52; PULSE 115; O2SAT 98; BMI 18.8
--- NOTE | 2025-02-20 11:31 | MHC.PC.OV ---
Vital Signs 02/20/25 11:31 Height 5 ft 5 in Weight 113 lb BMI 18.8 BP 108/52 L Blood Pressure Location Lt brachial Position Sitting Pulse 115 H Pulse Source Pulse Oximeter Pulse Oximetry (%) 98 Oxygen Delivery Method Room Air Intake Visit Reasons: Annual PE Allergies lisinopril Allergy (Intermediate, Verified 02/20/25 11:31) Cough sarilumab [From Kevzara] Allergy (Intermediate, Verified 02/20/25 11:31) rash tocilizumab [From Actemra] Allergy (Intermediate, Verified 02/20/25 11:31) Rash nitrofurantoin [Macrobid] Allergy (Unknown, Verified 02/20/25 11:31) UNKNOWN simvastatin Adverse Reaction (Severe, Verified 02/20/25 11:31) ABD PAIN Medication List - Last Reconciled 02/20/25 by Juni Crews MD albuterol sulfate 90 mcg/actuation (ProAir HFA) 2 puffs inhalation Q6H PRN ascorbate calcium (vitamin C) 500 mg PO DAILY cholecalciferol (vitamin D3) 25 mcg PO DAILY cyanocobalamin (vitamin B-12) 1,000 mcg PO DAILY folic acid 0.8 mg PO DAILY lactobacillus combination no.9 (Adult 50 Plus Probiotic) 4,000 mmu cells PO DAILY leflunomide 20 mg PO DAILY losartan 50 mg PO DAILY olanzapine 2.5 mg PO BEDTIME Tobacco use date assessed: 02/20/25 Fall risk assessment: No Falls in past year Last assessed Fall Risk: 02/20/25 Dental Screening Dental Screen Date: 02/03/25 HPI Annual PE HPI Details dizzy , near syncope, PFSH Medical History (Updated 02/20/25 @ 12:16 by Juni Crews MD) Left breast mass Neck pain Melanoma Elevated blood pressure reading Dysuria Degenerative disc disease Hypercholesterolemia Hepatitis B core antibody positive Seropositive rheumatoid arthritis Palpitations Asthma Rheumatoid arthritis Surgical History S/P breast lumpectomy History of bilateral tubal ligation Family History Father Cardiovascular disease Mother No problems noted. Son Throat cancer Social History Housing: House Alcohol intake: never Patient Tobacco Use Status: Former Tobacco user Tobacco use type: Cigarette Years Smoked: 27 years old quit e-Cigarette/Vaping Use: Never Used Second Hand Smoke Exposure: Yes service: No Current occupational status: retired Cognitive needs: No Hearing needs: No Vision needs: Yes Questionnaire PHQ-9 Over the last 2 weeks, how often have you been bothered by any of the following problems? 1. Little interest or pleasure in doing things: several days 2. Feeling down, depressed, or hopeless: several days 3. Trouble falling or staying asleep, or sleeping too much: several days 4. Feeling tired or having little energy: several days 5. Poor appetite or overeating: several days 6. Feeling bad about yourself - or that you are a failure or have let yourself or your family down: several days 7. Trouble concentrating on things, such as reading the newspaper or watching television: several days 8. Moving or speaking so slowly that other people could have noticed. Or the opposite - being so fidgety or restless that you have been moving around a lot more than usual: not at all 9. Thoughts that you would be better off or of hurting yourself in some way: not at all Total score: 7 Depression Screening Interpretation: Positive Depression Screening Done: Yes 06375 - PHQ-9 Billing: Yes Source: Developed by Drs. Jt Regalado, Sharon Cherry, Nic Rogel and colleagues, with an educational aylin from [employer]. Thrive Questionnaire Date Thrive assessed: 02/20/25 I am a: Patient What is your living situation today?: I have a steady place to live Within the past 12 months, did the food you bought not last and you didn't have the money to get more?: Never true Within the past 12 months, did you worry whether your food would run out before you got money to buy more?: Never true Do you have trouble paying for medicines?: No Do you have trouble getting transportation to medical appointments?: No Do you have trouble paying your heating and electricity bill?: No Do you have trouble taking care of your child, family member or friend?: No Do you have trouble with day-to-day activities such as bathing, preparing meals, shopping, managing finances, etc.?: No Are you currently unemployed and looking for a job?: No Are you interested in more education?: I choose not to answer this question Please select the resources that you would like help with: None Currently or been in a relationship where the following occur: No concerns reported THRIVE Score: 0 AUDIT C Alcohol Use Questionnaire (AUDIT-C) 1. How often do you have a drink containing alcohol?: Never Total Score: 0 JULIANE-7 AMB Questionnaire JULIANE-7 Date JULIANE - 7 assessed: 02/03/25 Feeling nervous, anxious, or on edge: 0 = Not at all Not being able to stop or control worryin = Not at all Worrying too much about different things: 1 = Several days Trouble relaxin = Several days Being so restless that it is hard to sit still: 1 = Several days Becoming easily annoyed or irritable: 1 = Several days Feeling afraid as if something awful might happen: 0 = Not at all Total JULIANE-7 score (0-4 normal; 5-9 mild; 10-14 moderate; 15-21 severe): 4 Source: Developed by Drs. Jt Regalado, Sharon Cherry, Nic Rogel and colleagues, with an educational aylin from [employer]. JULIANE-7 Assessment Billing JULIANE-7 Assessment Tool: JULIANE-7 Assessment 93232 Review of Systems Const Denies poor appetite and Denies weakness Eyes Denies no additional complaints ENT Reports Normal hearing present, Denies dizziness, Denies nasal congestion, Denies tinnitus and Denies sore throat Card Denies chest pain, Denies syncope, Denies rapid heart rate and Denies dyspnea Resp Denies cough and Denies dyspnea GI Denies change in stool character, Reports constipation, Denies diarrhea, Denies nausea and Denies vomiting Denies urinary frequency, Denies difficulty voiding and Denies dysuria Neuro Reports Normal hearing present, Denies confusion, Denies dizziness, Denies syncope and Denies weakness Psych Denies confusion Physical exam (Primary Care) Vital Signs: Last Vital Signs Pulse 115 H 02/20/25 11:31 BP 108/52 L 02/20/25 11:31 Pulse Ox 98 02/20/25 11:31 Oxygen Delivery Method Room Air 02/20/25 11:31 BMI result Body Mass Index 18.8 Tobacco/Smoking Status: Tobacco use Status Tobacco use date assessed 02/20/25 02/20/25 11:36 Patient Tobacco Use Status Former Tobacco user 02/20/25 11:36 Tobacco use type Cigarette 02/20/25 11:36 e-Cigarette/Vaping Use Never Used 02/20/25 11:36 PHQ-9: PHQ-9 Score PHQ-9: Total score 7 02/20/25 12:10 Depression Screening Interpretation: Positive Thrive Assessment: Date of Thrive Assessment Date Thrive assessed 02/20/25 02/20/25 11:36 Currently or been in a relationship where the following occur: No concerns reported Const General: No confusion Orientation/consciousness: No confusion HENMT Head: Yes normocephalic Ears: external ears normal and TM's normal bilaterally Face and sinus: Yes normal facial exam Mouth: moist mucous membranes Throat: Yes tonsils normal Eyes Conjunctivae: conjunctivae normal Pupils: Equal, round and reactive pupils present and Pupil accommodation reflex normal Direct Ophthalmoscopy: normal light reflex Neck Neck: No lymphadenopathy Thyroid: Thyroid normal Chest Chest palpation & inspection: normal inspection of the chest Resp Effort & Inspection: normal respiratory effort and no audible wheezes Auscultation: clear to auscultation bilaterally, no crackles, no wheezes and lung sounds not diminished Cardio Rate: regular rate Rhythm: regular rhythm Peripheral pulses: radial pulses present and dorsalis pedis present GI Palpation (GI): no masses Auscultation: normal bowel sounds and normoactive bowel sounds Rectal Exam - Female: deferred Skin General skin exam: no rashes or lesions noted Rashes: no rashes Neuro General: No confusion Cranial nerves: Yes Equal, round and reactive pupils present and Yes Normal hearing present Cognition (Neuro): normal cognition Gait exam (Neuro): Normal gait present Motor exam (neuro): 5/5 motor strength present throughout Deep tendon reflexes (DTR's): Right brachioradialis reflex intensity grade: 2+, Left brachioradialis reflex intensity grade: 2+, Right patellar reflex intensity grade: 2+ and Left patellar reflex intensity grade: 2+ Extrem General: No edema Coding Level of Care Code Est Pt Prev Care >65y(99543) Diagnoses Annual physical exam Z00.00 Seropositive rheumatoid arthritis M05.9 Breast cancer, left C50.912 Hypercholesterolemia E78.00 Hypertension I10 Pulsatile tinnitus H93.A9 Tachycardia R00.0 Additional Codes JULIANE-7 Assessment Billing - JULIANE-7 Assessment Tool: JULIANE-7 Assessment 67641 ([id number]) PHQ-9 - 03009 - PHQ-9 Billing: Yes ([id number]) Assessment & Plan Assessment & Plan (1) Annual physical exam: Code(s): Z00.00 - Encounter for general adult medical examination without abnormal findings Category: Medical Plan: Patient is advised to eat healthy, keep well hydrated, keep active and have adequate sleep. (2) Seropositive rheumatoid arthritis: Comment: ++RF+++CCP Enbrel: 08/2014- 05/2015 Humira : Dates unknown Plaquenil: 06/2017 GI upset Xeljanz: 04/2018- 12/2018 high co-pay, did not feel better on the medicine. Kevzara: 01/2021 - 02/2021 rash Actemra: 05/2021 rash Arava :07/2019- DC 10/2024 after Breast CA dx & chemotherapy started Code(s): M05.9 - Rheumatoid arthritis with rheumatoid factor, unspecified Category: Medical Plan: Continue to follow-up with Rheumatology. 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 Patient follows up with Hematology-Oncology (4) Hypercholesterolemia: Code(s): E78.00 - Pure hypercholesterolemia, unspecified Category: Medical Plan: Avoid fried foods, chicken skin, eggs, butter margarine, pastries and meat. Be it pork or beef they have a lot of cholesterol LDL goal of less than 130 and triglyceride of less than 150 (5) Hypertension: Code(s): I10 - Essential (primary) hypertension Category: Medical Plan: Continue with blood pressure medication. Decrease salt intake and exercise on losartan 50 mg once a day (6) Pulsatile tinnitus: Code(s): H93.A9 - Pulsatile tinnitus, unspecified ear Category: Medical Plan: Reassurance given by vascular surgeon (7) Tachycardia: Code(s): R00.0 - Tachycardia, unspecified Category: Medical Plan History of Present Illness The patient is a 74-year-old female presenting for an annual physical examination. Her medical history is significant for rheumatoid arthritis, hypercholesterolemia, mild asthma, and chronic neutropenia secondary to ongoing chemotherapy for breast cancer, diagnosed in August 2024. Her asthma symptoms have worsened since starting chemotherapy, and she reports feeling short of breath, especially when climbing stairs. The patient's recent hospitalization for sepsis and neutropenic fever in January 2025 required treatment with cefepime and one unit of PRBC transfusion. She has a background of pulsatile tinnitus, for which reassurance was provided by a vascular surgeon. Laboratory tests in October 2024 showed anemia and leukopenia. The patient has a history of hypercholesterolemia with a last recorded LDL level of 161 mg/dL and is managing her asthma symptoms with an inhaler. Health Maintenance - Last colonoscopy performed in August 2020. - Mammogram and bone density tests completed in July 2023. - Cholesterol checked in October 2023, with LDL at 161. - Continues follow-up with hematology-oncology and rheumatology. Social History - The patient does not consume alcohol and has ceased smoking. - Reports difficulty in consuming water due to altered taste. - Experiences significant dietary symptoms post-chemotherapy, impacting diet and nutrition. Review of Systems - Cardiovascular: Reports rapid heart rate, around 100 bpm. - Gastrointestinal: Reports constipation and diarrhea alternating. - Neurological: Reports tinnitus, pulsatile in nature. - General: Reports feeling dizzy and having almost passed out. - HEENT: Reports severe hearing impairment. Physical Exam General: Cooperative, healthy appearing, comfortable, no acute distress and well developed Orientation: Patient oriented x3 Limitations: No limitations Head: Normal to inspection Ears: Hearing impaired, request for hearing test considered Nose: Normal external nose present Face and sinus: Normal facial exam Eyes: Appearance normal, both eyes and all related structures Neck: Normal visual inspection and Yes full ROM, patient reports neck pain Respiratory: Normal respiratory effort, but reports worsened breathing since chemotherapy, wheezing noted Cardiovascular: Heart rate elevated, usually around 100, regular rhythm. Normal S1 and S2 GI: Normal to inspection. Soft to palpation and nontender, reports both constipation and diarrhea Skin: No rashes or lesions noted Neuro: Patient oriented x3 Extremities: Normal to inspection, reports restless legs and neuropathy in toes Results - Labs: Hemoglobin 10.9 g/dL, platelets normal, leukopenia with WBC count 2.3 x 10^9/L as of October 2024. Plan I will continue to monitor her chemotherapy for breast cancer, maintaining vigilance over her neutropenic status and anemia. Emphasized the importance of adequate hydration to manage her heart rate and consider adjustments to losartan if her blood pressure consistently falls below 110 mmHg. I recommended discontinuation of leflunomide due to its immunosuppressive properties. Rheumatology and hematology-oncology follow-ups should continue. As for her hearing impairment, future consideration for audiometry may be needed. She should continue managing cholesterol levels according to the prior plan and maintain vigilance for symptom recurrence. Patient was informed and verbally consented to the use of an ambient scribe for clinic note documentation during this visit. Discussion Notes I discussed with the patient the management of her current conditions, highlighting the focus on cancer treatment, routine monitoring of blood counts, and potential modifications to her medication to address heart rate and blood pressure concerns. The risks, including further immunosuppression with leflunomide, and benefits of therapeutic adjustments were considered in her context of ongoing chemotherapy. Follow-ups with rheumatology and hematology-oncology were emphasized to ensure comprehensive care. I outlined the need for specific lifestyle interventions, including maintaining hydration and dietary management, and addressed her recent hospital admission, reassuring her about the improvements in her sepsis condition. We also touched on the importance of ongoing health screenings and the potential need to reassess auditory function in the future. Patient Instructions - Stay well-hydrated to help manage heart rate. - Consider taking half a tablet of losartan if blood pressure consistently reads low. - Do not take leflunomide and continue follow-up with the petroleum engineering professor. - Schedule follow-up appointments with hematology-oncology as advised. - Monitor cholesterol levels and follow recommendations for its management. - Contact the medical office if any new or worsening symptoms occur, particularly related to respiratory or cardiac symptoms. - Follow up with scheduled appointments to ensure ongoing comprehensive care.
== END 2025-02-20 12:22 | disposition home or self-care (01) ==
LOC: HO.HMCH 11:19
PROVIDERS: PCP Internal Medicine; Visit Provider Internal Medicine
DX: Z00.00 Encounter for general adult medical examination without abnormal findings (principal); M05.9 Rheumatoid arthritis with rheumatoid factor, unspecified; C50.912 Malignant neoplasm of unspecified site of left female breast; E78.00 Pure hypercholesterolemia, unspecified; I10 Essential (primary) hypertension; H93.A9 Pulsatile tinnitus, unspecified ear; R00.0 Tachycardia, unspecified

== ENCOUNTER → 2025-02-20 11:19 | Outpatient (BNVA) | payer MEDICARE, SELFPAY | PROVIDERS: PCP Internal Medicine; Visit Provider Internal Medicine | DX: Z00.00 Encounter for general adult medical examination without abnormal findings (principal); M05.9 Rheumatoid arthritis with rheumatoid factor, unspecified; C50.912 Malignant neoplasm of unspecified site of left female breast; E78.00 Pure hypercholesterolemia, unspecified; I10 Essential (primary) hypertension; H93.A9 Pulsatile tinnitus, unspecified ear; R00.0 Tachycardia, unspecified; J45.909 Unspecified asthma, uncomplicated | CPT/HCPCS: 96127; 99397 ==

== ENCOUNTER 2025-03-13 08:55 | Outpatient (REF) | payer MEDICARE, SELFPAY ==
[2025-03-13 09:33] LABS: Hematocrit 26.6 % (37.0-47.0); Mean Corpuscular HGB Conc 33.8 g/dl (31.0-35.0); Mean Corpuscular Volume 97.4 fL (80.0-98.0); Red Blood Count 2.73 X10*6/uL (4.20-5.50); Red Cell Distribution Width 15.6 % (11.0-16.0)
--- OUTSIDE RECORDS SUMMARY | 2025-03-13 09:39 | XMS_ITS | Continuity of Care Document ---
Author Organization [facility] Address [address] [place] [id number]- Care Team Providers Care Drill Sharpener Operator Name Role Phone Po Juni PALACIOS Primary Care Physician [id number] Date(s): 12/28/24 - 03/10/25 [facility] [address] [place] [id number]- Attending Physician: Krystal Parekh MD Admitting Physician: Krystal Parekh MD Referring Physician: Albino Maher DO Encounter Type: Pre-OutPatient One Time Allergies, Adverse Reactions, Alerts Substance Criticality Severity [...] Soft Stop, 09/13/24 9:10:00 AM EDT, Tablet, [facility]/pharmacy #[id number], Partial fill upon patient request if [...] 0 Refills, Maintenance, 12/27/24 9:29:00 AM EST, [facility]/pharmacy #[id number], Partial fill upon patient request, 161, cm, 12/27/24 8:52:00 EST, Height, 56.4, kg, 12/06/24 9:58:00 EST, Dry Weight Start Date: 12/27/24 Status: Ordered Quantity: 24.0 Unit: tablet Repeat number: 1 dicyclomine 10 mg oral capsule 1 capsule = 10 mg, By Mouth, 4 times a day, # 90 capsule, 1 Refills, Maintenance, 02/10/25 3:52:00 PM EDT, Capsule, [facility]/pharmacy #[id number], Partial fill upon patient request if the prescription is for a schedule II opioid drug., 161, cm, 02/10/25 11:27:00 EDT, Height, 51, kg, 02/10/25 11:27:00 EDT, Dry Weight Start Date: 02/10/25 Status: Ordered Quantity: 90.0 Unit: capsule Repeat number: 2 Indication: Constipation, unspecified gabapentin 100 mg oral capsule 100 mg, 1, capsule, By Mouth, 2 times a day, may increase dose by 1 cap Qd every 3d if well tolerated but not effective, up to 3 cap PO BID, # 60 capsule, Refills 0, Tot. Refills 0, Maintenance, 12/21/24 11:07:00 AM EST, Route to Pharmacy Electronically, [facility]/pharmacy #[id number], Partial fill upon patient request if [...] Soft Stop, 10/18/24 4:31:00 PM EST, Cream, [facility]/pharmacy #[id number], Partial fill upon patient request [...] Date: 01/17/25 Status: Ordered Repeat number: 1 Metamucil 3.4 gm/5.2 gm oral powder for reconstitution = 1.7 Gm, By Mouth, Daily, for 30 days, May increase to two or three times a day as needed., # 283 Gm, 2 Refills, Acute 05/11/25 3:50:00 PM EDT, 02/10/25 3:50:00 PM EDT, REC Powder, [id number],Partial fill upon patient request if the prescription is for a schedule II opioid drug., 161, cm, 02/10/25 11:27:00 EDT, Height, 51, kg, 02/10/25 11:27:00 EDT, Dry Weight Start Date: 02/10/25 Stop Date: 05/11/25 Status: Ordered Quantity: 283.0 Unit: g Repeat number: 3 Indication: Constipation, unspecified MiraLax oral powder for reconstitution = 17 Gm, By Mouth, Daily, dissolve in water or juice. My increase to 2-3 times a day as needed for constipation, # 255 Gm, 2 Refills, Maintenance, 02/10/25 3:50:00 PM EDT, [id number], Partial fill upon patient request if the prescription is for a schedule II opioid drug., 17 Gm By Mouth Daily,x30 days,Instr:dissolve in water or juice. My increase to 2-3 times a day as needed for constipation, 161, cm, 02/10/25 11:27:00 EDT, Height, 51, kg, 02/10/25 11:27:00 EDT, Dry Weight Start Date: 02/10/25 Stop Date: 05/11/25 Status: Ordered Quantity: 255.0 Unit: g Repeat number: 3 Indication: Constipation, unspecified mirtazapine 7.5 mg oral tablet 1 tablet = 7.5 mg, By Mouth, Daily at bedtime, # 30 tablet, 0 Refills, Maintenance, 01/13/25 2:05:00PM EST, [facility]/pharmacy #[id number], Partial fill upon patient request if [...] tablet, Refills 0, Tot. Refills 0, Maintenance, 02/10/25 2:30:00 PM EDT, Instructions Replace Required Details, Route to Pharmacy Electronically, [facility]/pharmacy #[id number], Partial fill upon patient request if the prescription is for a schedule II opioid drug., 161, cm, 02/10/25 11:27:00EDT, Height, 51, kg, 02/10/25 11:27:00 EDT, Dry Weight Start Date: 02/10/25 Status: Ordered Quantity: 16.0 Unit: tablet Repeat number: 1 ondansetron 8 mg oral tablet 1 tablet = 8 mg, By Mouth, Every 8 hours, PRN Nausea & Vomiting, # 30 tablet, 1 Refills, Maintenance, 12/27/24 9:30:00 AM EST, [facility]/pharmacy #[id number], Partial fill upon patient request if [...] 1 Refills, Maintenance, 12/27/24 9:30:00 AM EST, [facility]/pharmacy #[id number], Partial fill upon patient request if [...] Date: 09/16/24 Status: Ordered Repeat number: 1 traZODone 50 mg oral tablet 25 mg, 0.5, tablet, By Mouth, Daily at bedtime, Can increase to 1 tablet after 3 days if needed, # 30 tablet, Refills 2, Tot. Refills 2, Maintenance, 4/22/25 1:10:00 PM EDT, Route to Pharmacy Electronically, [facility]/pharmacy #[id number], Partial fill upon patient request if the prescription is for a scheduleII opioid drug., 161, cm, 03/07/25 9:53:00 EDT, Height, 53.8, kg, 03/07/25 8:30:00 EDT, Dry Weight Start Date: 03/07/25 Status: Ordered Quantity: 30.0 Unit: tablet Repeat number: 3 Vitamin C By Mouth, Daily, 0 Refills, Maintenance, 09/13/24 8:06:00 AM EDT, Partial fill upon patient requestif the prescription is for a schedule II opioid drug. 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 Social History Social History Type [...] RN Member Role: Primary Care Nurse Name: Julio Zapien RN Position: [place] RN Member Role: Primary Care Nurse Name: Barbra Raya RN Position: [place] RN Member Role: Primary Care Nurse Name: Juni Crews MD Position: Reference Physician Member Role: PCP Address: [address] [place] [address]- Telecom: Name: Nando Dyer RN Position: S RN Member Role: Primary Care Nurse Care Team Related Persons Name: MICHEL CARNEY Insurance Providers Guarantor name: JULY ROMMEL Health Plan Information #: 1 Payer: NA Member Number: [id number] Policy Number: NA Group Number: [id number] Health Plan Information #: 2 Payer: NA Member Number: [id number] Policy Number: NA Group Number: [id number]
[2025-03-13 09:42] LABS: WBC ABN SCTR FOR CBC 1
[2025-03-13 09:57] LABS: Alanine Aminotransferase 13 U/L (0-31); Alkaline Phosphatase 82 U/L (39-117); Anion Gap 11 (12-20); Aspartate Amino Transferase 19 U/L (5-31); Bilirubin Total 0.4 mg/dL (0.0-1.0); Blood Urea Nitrogen 17 mg/dL (9-16); C Reactive Protein 0.32 mg/dL (< or = 0.50); Calcium 9.6 mg/dL (8.4-10.2); Carbon Dioxide 27 mmol/L (22-29); Chloride 106 mmol/L (96-108); Estimated Glomerular Filt Rate > 60; Glucose Random 119 mg/dL (60-115); Sodium 140 mmol/L (135-145); Total Protein 6.2 g/dL (6.5-8.0)
[2025-03-13 10:13] LABS: Erythrocyte Sedimentation Rate 48 MM/HR (0-20)
[2025-03-13 10:43] LABS: Atypical Lymphs Percent Manual 3 % (0-6); Band Neutrophils Percent 10 % (3-5); Basophils Percent Manual 2 % (0-2); Eosinophils Percent Manual 4 % (0-4); Lymphocytes Percent Manual 19 % (20-40); Monocytes Percent Manual 6 % (2-11); Neutrophils Percent Manual 56 % (45-73)
[2025-03-13 10:49] LABS: Macrocytosis 1+ (5-14) /OIF; RBC Morphology NOTED
[2025-03-13 10:50] LABS: Ovalocytes 1+ (5-14) /OIF; Platelet Estimate DECREASED (NORMAL); Tear Drop Cells 2+ (3-5) /OIF
[2025-03-13 10:51] LABS: Large Platelet PRESENT; Platelet Morphology Comment NOTED
[2025-03-13 10:52] LABS: Dohle Bodies PRESENT
[2025-03-13 10:53] LABS: Lymphocytes Absolute Manual 0.2 X10*3/uL (1.2-4.9); Monocytes Absolute Manual 0.1 X10*3/uL (0.1-1.2); Neutrophils Absolute Manual 0.8 X10*3/uL (2.0-8.3); Platelet Count 68 X10*3/uL (160-400); White Blood Count 1.2 X10*3/uL (4.8-10.8)
== END 2025-03-13 08:56 | disposition home or self-care (01) ==
LOC: HO.LAB 08:55
PROVIDERS: PCP Internal Medicine; Visit Provider Student in an Organized Health Care Education/Training Program
DX: M05.9 Rheumatoid arthritis with rheumatoid factor, unspecified (principal); Z79.899 Other long term (current) drug therapy
CPT/HCPCS: 36415; 80053; 85007; 85027; 85652; 86140

== ENCOUNTER 2025-03-16 08:46 | Outpatient (AMB) | payer MEDICARE, SELFPAY ==
--- NOTE | 2025-03-16 08:55 | MHC.OFFVIS ---
Vital Signs 03/16/25 08:56 Height 5 ft 5 in Weight 117 lb 11.629 oz BMI 19.6 BP 108/70 Blood Pressure Location Lt brachial Position Sitting Pulse 97 Pulse Source Pulse Oximeter Pulse Oximetry (%) 98 Oxygen Delivery Method Room Air Intake Visit Reasons: RA Intake Note: Patient presents for follow up on RA and lab review. She was last seen in the office on 11/02/24. Allergies lisinopril Allergy (Intermediate, Verified 03/16/25 09:00) Cough sarilumab [From Kevzara] Allergy (Intermediate, Verified 03/16/25 09:00) rash tocilizumab [From Actemra] Allergy (Intermediate, Verified 03/16/25 09:00) Rash nitrofurantoin [Macrobid] Allergy (Unknown, Verified 03/16/25 09:00) UNKNOWN simvastatin Adverse Reaction (Severe, Verified 03/16/25 09:00) ABD PAIN Medication List - Last Reconciled 03/16/25 by Lillie Beck MD albuterol sulfate 90 mcg/actuation (ProAir HFA) 2 puffs inhalation Q6H PRN ascorbate calcium (vitamin C) 500 mg PO DAILY cholecalciferol (vitamin D3) 25 mcg PO DAILY cyanocobalamin (vitamin B-12) 1,000 mcg PO DAILY folic acid 0.8 mg PO DAILY lactobacillus combination no.9 (Adult 50 Plus Probiotic) 4,000 mmu cells PO DAILY leflunomide 20 mg PO DAILY losartan 50 mg PO DAILY olanzapine 2.5 mg PO BEDTIME HPI Comments Details: Patient is a 74-year-old female with hypertension and breast cancer currently undergoing chemotherapy with plans for surgery and radiation afterwards. Here today for follow up of her seropositive rheumatoid arthritis Interval History: Patient last seen 11/02/[address] Aguirre. At that time she was following up for her seropositive rheumatoid arthritis. Given her recent diagnosis of cancer plan was to stop her leflunomide. Patient has stopped the leflunomide but thought that she was having a flare of her disease because of numbness and tingling as well as swelling to the bilateral feet and so she restarted the medication. She subsequently follow that she has neuropathy in her feet but continued the leflunomide Today patient denies prolonged morning stiffness, joint pain in her hands but continues to have this numbness and tingling to her feet along with pain and sometimes swelling. Received her last dose of chemo 1 week ago and is in plans for surgery and radiation. Rheumatologic History: ++RF+++CCP Enbrel: 08/2014- 05/2015 Humira : Dates unknown Plaquenil: 06/2017 GI upset Xeljanz: 04/2018- 12/2018 high co-pay, did not feel better on the medicine. Kevzara: 01/2021 - 02/2021 rash Actemra: 05/2021 rash Arava :07/2019- DC 10/2024 after Breast CA dx & chemotherapy started Current Rheumatology Medication(s): Leflunomide 20mg daily [facility] Medical History (Updated 03/16/25 @ 11:09 by Lillie Beck MD) Left breast mass Neck pain Melanoma Elevated blood pressure reading Dysuria Degenerative disc disease Hypercholesterolemia Hepatitis B core antibody positive Seropositive rheumatoid arthritis Palpitations Asthma Rheumatoid arthritis Surgical History S/P breast lumpectomy History of bilateral tubal ligation Family History Father Cardiovascular disease Mother No problems noted. Son Throat cancer Social History Housing: House Alcohol intake: never Patient Tobacco Use Status: Former Tobacco user Tobacco use type: Cigarette Years Smoked: 27 years old quit e-Cigarette/Vaping Use: Never Used Second Hand Smoke Exposure: Yes service: No Current occupational status: retired Cognitive needs: No Hearing needs: No Vision needs: Yes Review of Systems Const Details: Review of Systems Constitutional: Denies fever, chills, weight loss ENT: Denies vision changes, eye pain or eye redness, dental caries, dry mouth GI: Denies nausea, vomiting, diarrhea, abdominal pain, change in BM Pulm: Denies SOB, GODDARD, hemoptysis, wheezing Cards: Denies chest pain, palpitations Skin: Denies Raynaud's, rash, nail changes, photosensitivity, 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 Well appearing and in no apparent painful distress Frail HEENT Conjunctiva and sclera clear. ?Pupils equal round and reactive to light. ?No lymphadenopathy. ? CHEST/RESPIRATORY SYSTEM Normal respiratory effort and able to speak in complete sentences. ?Clear to auscultation bilaterally. ?No crackles, rales, rhonchi, wheezes heard. CARDIAC SYSTEM Regular rate and rhythm. ?S1 and S2 heard no murmurs. ?Radial pulses intact bilaterally MSK Hands: ?Able to make a fist. No synovitis noted to the MCPs, PIPs or DIPs. ?No tenderness to palpation of these joints. [place] nodes? Wrists: ?Full range of motion at the wrists without pain. ?No tenderness to palpation or synovitis noted to the wrists. Elbows: Full range of motion without pain. No tenderness, weakness, swelling, increased warmth or erythema. Shoulders: Full range of active range of motion without pain. No tenderness, weakness, swelling, increased warmth or erythema. Knees: ?Full range of motion. ?No tenderness, swelling, increased warmth or erythema.?No effusion or crepitations Ankles: Full range of motion. ?No tenderness, swelling, increased warmth or erythema.? Feet: ?Negative squeeze test. ?No tenderness to palpation or swelling of the MTPs. Increased sensitivity when touching bilateral feet Tender points:?No tenderness to palpation of the bilateral trapezius, supraspinatus, greater trochanters, anterior costochondral junctions, bilateral gluteal areas, bilateral suboccipital muscle insertions SKIN Skin intact without rashes. Results Reviewed Results Reviewed: Laboratory Tests 03/13/25 09:05 WBC 1.2 L RBC 2.73 L D Hgb 9.0 L Hct 26.6 L Plt Count 68 L D Abs Neuts (Manual) 0.8 L Lymphocytes # (Manual) 0.2 L ESR 48 H Sodium 140 Potassium 4.0 Chloride 106 Carbon Dioxide 27 BUN 17 H Creatinine 0.61 AST 19 ALT 13 Alkaline Phosphatase 82 C-Reactive Protein 0.32 Assessment & Plan Assessment & Plan (1) Seropositive rheumatoid arthritis: Comment: ++RF+++CCP Enbrel: 08/2014- 05/2015 Humira : Dates unknown Plaquenil: 06/2017 GI upset Usha: 04/2018- 12/2018 high co-pay, did not feel better on the medicine. Kevzara: 01/2021 - 02/2021 rash Actemra: 05/2021 rash Arava :07/2019- DC 10/2024 after Breast CA dx & chemotherapy started Code(s): M05.9 - Rheumatoid arthritis with rheumatoid factor, unspecified Category: Medical Plan: #Seropositive RA Patient is a 74-year-old female here today for follow up for seropositive rheumatoid arthritis. At this time her examination is consistent with remission. Discussed with the patient that given her current cancer and cancer treatment it is best for us to hold her immunosuppression with leflunomide as this could worsen her current pancytopenia and prevent her immune system from properly fighting the cancer. If patient does have any flare of her symptoms we can try low-dose prednisone or Plaquenil. Plan - Stop leflunomide - Monitor off immunosuppression - RTC 3 months - Will hold off on repeat labs since she currently gets lab work done weekly (2) Pancytopenia: Code(s): D61.818 - Other pancytopenia Plan: #Pancytopenia Patient with breast cancer currently undergoing chemotherapy received her last dose of chemotherapy 1 week ago now with pancytopenia. 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 Patient currently has no fever is not tachycardic today sating 98% on room air (3) Neuropathy: Code(s): G62.9 - Polyneuropathy, unspecified Plan: #Neuropathy and RLS Patient is experiencing neuropathy of her left lower extremity associated with restless legs syndrome. We will give her a trial of pregabalin 25 mg nightly and alpha lipoic acid 600 mg daily. Told patient that if the pregabalin is effective she should contact the office for a higher dose Plan I spent 46 minutes reviewing the record and labs, taking a history, examining the patient, discussing the treatment plan, ordering diagnostic work up and documenting in the medical record Medications: New alpha lipoic acid 600 mg PO DAILY 90 caps 1RF G62.9 - Polyneuropathy, unspecified pregabalin 25 mg PO BEDTIME 90 caps 1RF Discontinued leflunomide Discontinued Reason: Doctor's Order 20 mg PO DAILY 90 tabs 1RF M05.9 - Rheumatoid arthritis with rheumatoid factor, unspecified Coding Level of Care Code Est Pt Level 5 (32908) Complex EM visit Add On G2211 Diagnoses Seropositive rheumatoid arthritis M05.9 Pancytopenia D61.818 Neuropathy G62.9
[2025-03-16 08:56] VITALS: BP 108/70; PULSE 97; O2SAT 98; BMI 19.6
== END 2025-03-16 09:37 | disposition home or self-care (01) ==
LOC: HO.RHE 08:47
PROVIDERS: PCP Internal Medicine; Visit Provider Student in an Organized Health Care Education/Training Program
DX: M05.9 Rheumatoid arthritis with rheumatoid factor, unspecified (principal); D61.818 Other pancytopenia; G62.9 Polyneuropathy, unspecified
CPT/HCPCS: 99215; G2211

== ENCOUNTER → 2025-03-16 08:46 | Outpatient (BNVA) | payer MEDICARE, SELFPAY | PROVIDERS: PCP Internal Medicine; Visit Provider Student in an Organized Health Care Education/Training Program | DX: M05.9 Rheumatoid arthritis with rheumatoid factor, unspecified (principal); D61.818 Other pancytopenia; G62.9 Polyneuropathy, unspecified | CPT/HCPCS: 99212 ==

== ENCOUNTER 2025-05-26 14:19 | Outpatient (AMB) | payer MEDICARE, SELFPAY ==
--- NOTE | 2025-05-26 14:22 | MHC.OFFVIS ---
Vital Signs 05/26/25 14:25 Height 5 ft 5 in Weight 119 lb 0.794 oz BMI 19.8 BP 115/72 Blood Pressure Location Rt brachial Position Sitting Pulse 93 Pulse Source Pulse Oximeter Pulse Oximetry (%) 96 Oxygen Delivery Method Room Air Intake Visit Reasons: RA Intake Note: Patient presents for RA follow up. Allergies lisinopril Allergy (Intermediate, Verified 05/26/25 14:25) Cough sarilumab (From Kevzara) Allergy (Intermediate, Verified 05/26/25 14:25) rash tocilizumab (From Actemra) Allergy (Intermediate, Verified 05/26/25 14:25) Rash nitrofurantoin (Macrobid) Allergy (Unknown, Verified 05/26/25 14:25) UNKNOWN simvastatin Adverse Reaction (Severe, Verified 05/26/25 14:25) ABD PAIN HPI Comments Details: Patient is a 74-year-old female with hypertension and breast cancer currently undergoing chemotherapy with plans for surgery and radiation afterwards. Here today for follow up of her seropositive rheumatoid arthritis Interval History: Patient last seen 03/16/25 with me - On leflunomide - C/o joint pain and Nn/t to feet associated withs swelling - Still being treated for breast cancer - Leflunomide d/c in the setting of breast cancer treatment - Started alpha lipoic acid and lyrica Since then, - Had a flare of her disease requiring prednisone Today, - Flare resolved with the prednisone - Had surgery, the chemo shrank the cancer - Doing 3 weeks of radiation starting june - Restarted leflunomide Rheumatologic History: ++RF+++CCP Enbrel: 08/2014- 05/2015 Humira : Dates unknown Plaquenil: 06/2017 GI upset Xeljanz: 04/2018- 12/2018 high co-pay, did not feel better on the medicine. Kevzara: 01/2021 - 02/2021 rash Actemra: 05/2021 rash Arava :07/2019- DC 10/2024 after Breast CA dx & chemotherapy started Current Rheumatology Medication(s): prednisone taper Leflunomide 20mg PFSH Medical History (Updated 03/16/25 @ 11:09 by Lillie Beck MD) Left breast mass Neck pain Melanoma Elevated blood pressure reading Dysuria Degenerative disc disease Hypercholesterolemia Hepatitis B core antibody positive Seropositive rheumatoid arthritis Palpitations Asthma Rheumatoid arthritis Surgical History S/P breast lumpectomy History of bilateral tubal ligation Family History Father Cardiovascular disease Mother No problems noted. Son Throat cancer Social History Housing: House Alcohol intake: never Patient Tobacco Use Status: Former Tobacco user Tobacco use type: Cigarette Years Smoked: 27 years old quit e-Cigarette/Vaping Use: Never Used Second Hand Smoke Exposure: Yes service: No Current occupational status: retired Cognitive needs: No Hearing needs: No Vision needs: Yes Review of Systems Const Details: Review of Systems Constitutional: Denies fever, chills, weight loss ENT: Denies vision changes, eye pain or eye redness, dental caries, dry mouth GI: Denies nausea, vomiting, diarrhea, abdominal pain, change in BM Pulm: Denies SOB, GODDARD, hemoptysis, wheezing Cards: Denies chest pain, palpitations Skin: Denies Raynaud's, rash, nail changes, photosensitivity, 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 Well appearing and in no apparent painful distress Frail HEENT Conjunctiva and sclera clear. ?Pupils equal round and reactive to light. ?No lymphadenopathy. ? CHEST/RESPIRATORY SYSTEM Normal respiratory effort and able to speak in complete sentences. ?Clear to auscultation bilaterally. ?No crackles, rales, rhonchi, wheezes heard. CARDIAC SYSTEM Regular rate and rhythm. ?S1 and S2 heard no murmurs. ?Radial pulses intact bilaterally MSK Hands: ?Able to make a fist. No synovitis noted to the MCPs, PIPs or DIPs. ?No tenderness to palpation of these joints. [place] nodes? Wrists: ?Full range of motion at the wrists without pain. ?No tenderness to palpation or synovitis noted to the wrists. Elbows: Full range of motion without pain. No tenderness, weakness, swelling, increased warmth or erythema. Shoulders: Full range of active range of motion without pain. No tenderness, weakness, swelling, increased warmth or erythema. Knees: ?Full range of motion. ?No tenderness, swelling, increased warmth or erythema.?No effusion or crepitations Ankles: Full range of motion. ?No tenderness, swelling, increased warmth or erythema.? Feet: ?Negative squeeze test. ?No tenderness to palpation or swelling of the MTPs. Increased sensitivity when touching bilateral feet Tender points:?No tenderness to palpation of the bilateral trapezius, supraspinatus, greater trochanters, anterior costochondral junctions, bilateral gluteal areas, bilateral suboccipital muscle insertions SKIN Skin intact without rashes. Results Reviewed Results Reviewed: Laboratory Tests 03/13/25 09:05 WBC 1.2 L RBC 2.73 L D Hgb 9.0 L Hct 26.6 L Plt Count 68 L D Abs Neuts (Manual) 0.8 L Lymphocytes # (Manual) 0.2 L ESR 48 H Sodium 140 Potassium 4.0 Chloride 106 Carbon Dioxide 27 BUN 17 H Creatinine 0.61 AST 19 ALT 13 Alkaline Phosphatase 82 C-Reactive Protein 0.32 Assessment & Plan Assessment & Plan (1) Seropositive rheumatoid arthritis: Comment: ++RF+++CCP Enbrel: 08/2014- 05/2015 Humira : Dates unknown Plaquenil: 06/2017 GI upset Xeljanz: 04/2018- 12/2018 high co-pay, did not feel better on the medicine. Kevzara: 01/2021 - 02/2021 rash Actemra: 05/2021 rash Arava :07/2019- DC 10/2024 after Breast CA dx & chemotherapy started Code(s): M05.9 - Rheumatoid arthritis with rheumatoid factor, unspecified Category: Medical Plan: #Seropositive RA Patient is a 74-year-old female here today for follow up for seropositive rheumatoid arthritis. At this time her examination is consistent with remission after a recent flare. Patient has completed chemotherapy and surgery. Okay from a rheumatology standpoint to restart her leflunomide Plan - Leflunomide 20mg daily - RTC 3 months - Labs before visit: CBC, CMP, ESR, CRP Plan I spent 30 minutes reviewing the record and labs, taking a history, examining the patient, discussing the treatment plan, ordering diagnostic work up and documenting in the medical record Orders: Orders Complete Blood Count Auto Diff 3 Months M05.9 - Rheumatoid arthritis with rheumatoid factor, unspecified C Reactive Protein 3 Months M05.9 - Rheumatoid arthritis with rheumatoid factor, unspecified Erythrocyte Sedimentation Rate 3 Months M05.9 - Rheumatoid arthritis with rheumatoid factor, unspecified Comprehensive Met. Panel 3 Months M05.9 - Rheumatoid arthritis with rheumatoid factor, unspecified Medications: Refilled leflunomide 20 mg PO DAILY 90 tabs 1RF M05.9 - Rheumatoid arthritis with rheumatoid factor, unspecified Coding Level of Care Code Est Pt Level 4 (75452) Complex EM visit Add On G2211 Diagnoses Seropositive rheumatoid arthritis M05.9
[2025-05-26 14:25] VITALS: BP 115/72; PULSE 93; O2SAT 96; BMI 19.8
== END 2025-05-26 14:44 | disposition home or self-care (01) ==
PROVIDERS: PCP Internal Medicine; Visit Provider Student in an Organized Health Care Education/Training Program
DX: M05.79 Rheumatoid arthritis with rheumatoid factor of multiple sites without organ or systems involvement (principal)
CPT/HCPCS: 99214; G2211

== ENCOUNTER → 2025-05-26 14:19 | Outpatient (BNVA) | payer MEDICARE, SELFPAY | PROVIDERS: PCP Internal Medicine; Visit Provider Student in an Organized Health Care Education/Training Program | DX: I10 Essential (primary) hypertension (principal); M05.9 Rheumatoid arthritis with rheumatoid factor, unspecified | CPT/HCPCS: 99212 ==

== ENCOUNTER 2025-06-19 12:33 | Outpatient (REF) | payer MEDICARE, SELFPAY ==
--- OUTSIDE RECORDS SUMMARY | 2025-06-19 13:00 | XMS_ITS | Patient Health Record ---
Author Organization [facility] Address [address] [place] [address] Care Team Providers Care Crab Fisherman Name Role Phone Juni Crews MD Primary Care Provider Jt Baum [phone] Allergies Allergen (clinical drug ingredient) Drug/Non Drug Allergy documented on EMR Reaction Allergy Type Onset Date Status nitrofurantoin, macrocrystals / nitrofurantoin, monohydrate Macrobid Unknown Drug Allergy Active Reason For Referral No Information Medications Medication SIG (Take, Route, Fr equency, Duration) Notes Start Date End Date Status Arava 10 MG 1 tablet Orally Once a day Active Multivitamin Adults - as directed Orally Active Immunizations Vaccine Route Administration Date Status Comme nts Influenza Unknown 09/08/2019 Refused Social History Tobacco Use: Social History Observation Description Date Details (start date - stop date) Former Smoker NA - NA Tobacco Use/Smoking Question Answer Notes Patient is a former smoker When did you stop smoking? age 27 How long has it been since you last smoked? > 10 years Alcohol Screen Question Answer Notes Did you have a drink containing alcohol in the p ast year? No Points 0 Interpretation Negative Section Notes: Nonsmoker; no sig alcohol Problems Problem Type SNOMED Code ICD Code Onset Dates Problem Status W/U Status Risk Notes Problem [id number] Encounter for screening for malignant neoplasm of colon (Z12.11) Active confirmed Problem [id number] Preprocedural examination (Z01.818) Active confirmed Plan Of Treatment Future Test Test Name Order Date COLONOSCOPY 09/08/2019 Insurance Providers Payer Name Payer Address Payer Phone Subscriber Number Group Number Insured Name Patient Relationship to Insured Coverage Start Date Coverage End Date [facility] [address] [place], [place] [phone] [phone] [id number] JULY CARNEY Self - patient is the insured Medical (General) History Medical History History ICD Code Rheumatoid arthritis Asthma - mild intermittent Denies [place],DM,CVA,renal disease Neg. screening colonoscopy in 08/2008 Surgical History Surgery Date(Month/Year) Tubal ligation Breast Lumpectomy--benign
[2025-06-19 14:19] LABS: Appearance Urine Clear; Glucose Urine UA Negative (Negative); PH 6.5 (5.0-9.0); Specific Gravity - Urine 1.020 (1.005-1.025); UMIC TRIGGER UACC YES
== END 2025-06-19 12:34 | disposition home or self-care (01) ==
LOC: HO.LAB 12:33
PROVIDERS: PCP Internal Medicine
DX: R39.9 Unspecified symptoms and signs involving the genitourinary system (principal)
CPT/HCPCS: 81001; 81003

== ENCOUNTER 2025-08-19 09:57 | Outpatient (REF) | payer MEDICARE, SELFPAY ==
--- OUTSIDE RECORDS SUMMARY | 2025-08-19 10:00 | XMS_ITS | Patient Health Record ---
Author Organization [facility] Address [address] [place] [address] Care Team Providers Care Tank Inspector Name Role Phone Juni Crews MD Primary Care Provider Jt Baum [phone] Allergies Allergen (clinical drug ingredient) Drug/Non Drug [...] Problem Status W/U Status Risk Notes Problem [id number] Encounter for screening for malignant neoplasm of colon (Z12.11) Active confirmed Problem [id number] Preprocedural examination (Z01.818) Active confirmed Plan Of Treatment Future Test Test Name Order Date COLONOSCOPY 09/08/2019 Insurance Providers Payer Name Payer Address Payer Phone Subscriber Number Group Number Insured Name Patient Relationship to Insured Coverage Start Date Coverage End Date [facility] [address] [place], [place] [id number] JULY CARNEY Self - patient is the insured Medical (General) History Medical History History ICD Code Rheumatoid arthritis Asthma - mild intermittent Denies [place],DM,CVA,renal disease Neg. screening colonoscopy in 08/2008 Surgical History Surgery Date(Month/Year) Tubal ligation Breast Lumpectomy--benign
[2025-08-19 10:40] LABS: MANUAL DIFF FLAG NO
[2025-08-19 10:59] LABS: Hematocrit 30.2 % (37.0-47.0); Hemoglobin 11.0 g/dl (12.0-16.0); Imm Gran Abs Auto 0.02 X10*3/uL (0.00-0.03); Imm Gran Pct Auto 0.4 % (0.0-0.4); Lymphocytes Absolute Auto 0.5 X10*3/uL (1.2-4.9); Mean Corpuscular HGB Conc 36.4 g/dl (31.0-35.0); Mean Corpuscular Hemoglobin 32.1 pg (27.0-33.0); Mean Corpuscular Volume 88.0 fL (80.0-98.0); NRBC Abs Auto 0.000 X10*3/uL (0.0-0.012); NRBC Pct Auto 0.0 /100WBC (0.0-0.2); Platelet Count 171 X10*3/uL (160-400); Red Blood Count 3.43 X10*6/uL (4.20-5.50); White Blood Count 5.2 X10*3/uL (4.8-10.8)
[2025-08-19 11:32] LABS: Alanine Aminotransferase 13 U/L (0-31); Albumin Level 4.0 g/dL (3.5-5.0); Alkaline Phosphatase 95 U/L (39-117); Anion Gap 13 (12-20); Aspartate Amino Transferase 22 U/L (5-31); Blood Urea Nitrogen 17 mg/dL (9-16); Calcium 9.5 mg/dL (8.4-10.2); Carbon Dioxide 26 mmol/L (22-29); Chloride 107 mmol/L (96-108); Estimated Glomerular Filt Rate > 60; Potassium 4.6 mmol/L (3.3-5.1); Sodium 141 mmol/L (135-145); Total Protein 6.3 g/dL (6.5-8.0)
== END 2025-08-19 09:58 | disposition home or self-care (01) ==
LOC: HO.LAB 09:57
PROVIDERS: PCP Internal Medicine; Visit Provider Student in an Organized Health Care Education/Training Program
DX: M05.9 Rheumatoid arthritis with rheumatoid factor, unspecified (principal)
CPT/HCPCS: 36415; 80053; 85025; 85652; 86140

== ENCOUNTER 2025-08-22 08:15 | Outpatient (AMB) | payer MEDICARE, SELFPAY ==
--- OUTSIDE RECORDS SUMMARY | 2025-08-22 08:31 | XMS_ITS | Patient Health Record ---
Author Organization [facility] Address [address] [place] [address] Care Team Providers Care Business Objects Consultant Name Role Phone Juni Crews MD Primary Care Provider Jt Baum [phone] Allergies Allergen (clinical drug ingredient) Drug/Non Drug [...] Problem Status W/U Status Risk Notes Problem [id number] Encounter for screening for malignant neoplasm of colon (Z12.11) Active confirmed Problem [id number] Preprocedural examination (Z01.818) Active confirmed Plan Of Treatment Future Test Test Name Order Date COLONOSCOPY 09/08/2019 Insurance Providers Payer Name Payer Address Payer Phone Subscriber Number Group Number Insured Name Patient Relationship to Insured Coverage Start Date Coverage End Date [facility] [address] [place], [place] [id number] JULY CARNEY Self - patient is the insured Medical (General) History Medical History History ICD Code Rheumatoid arthritis Asthma - mild intermittent Denies [place],DM,CVA,renal disease Neg. screening colonoscopy in 08/2008 Surgical History Surgery Date(Month/Year) Tubal ligation Breast Lumpectomy--benign
--- NOTE | 2025-08-22 08:41 | MHC.OFFVIS ---
Vital Signs 08/22/25 08:47 Height 5 ft 5 in Weight 120 lb 5.958 oz BMI 20.0 BP 124/80 Blood Pressure Location Rt brachial Position Sitting Pulse 91 Pulse Source Pulse Oximeter Pulse Oximetry (%) 99 Oxygen Delivery Method Room Air Intake Visit Reasons: RA Intake Note: Patient presents for RA follow up. Allergies lisinopril Allergy (Intermediate, Verified 08/22/25 08:47) Cough sarilumab (From Kevzara) Allergy (Intermediate, Verified 08/22/25 08:47) rash tocilizumab (From Actemra) Allergy (Intermediate, Verified 08/22/25 08:47) Rash nitrofurantoin (Macrobid) Allergy (Unknown, Verified 08/22/25 08:47) UNKNOWN simvastatin Adverse Reaction (Severe, Verified 08/22/25 08:47) ABD PAIN Medication List - Last Reconciled 08/22/25 by Lillie Beck MD albuterol sulfate 90 mcg/actuation (ProAir HFA) 2 puffs inhalation Q6H PRN alpha lipoic acid 600 mg PO DAILY ascorbate calcium (vitamin C) 500 mg PO DAILY cefuroxime axetil 250 mg PO BID 7 days cholecalciferol (vitamin D3) 25 mcg PO DAILY cyanocobalamin (vitamin B-12) 1,000 mcg PO DAILY folic acid 0.8 mg PO DAILY lactobacillus combination no.9 (Adult 50 Plus Probiotic) 4,000 mmu cells PO DAILY leflunomide 20 mg PO DAILY losartan 50 mg PO DAILY olanzapine 2.5 mg PO BEDTIME pregabalin 25 mg PO BEDTIME HPI Comments Details: Patient is a 74-year-old female with hypertension and breast cancer currently undergoing chemotherapy with plans for surgery and radiation afterwards. Here today for follow up of her seropositive rheumatoid arthritis Interval History: Patient last seen 05/26/25 with me - On leflunomide 20mg - Had a flare of her disease requiring prednisone - Flare resolved with the prednisone - Had surgery, the chemo shrank the cancer - Doing 3 weeks of radiation starting june - Restarted leflunomide Today, - On leflunomide 20mg - Doing well overall - Completed radiation and chemo - Joint pain overall controlled - Does get intermittent flares 1-2 times per month, not sustained lasting maybe 1-2 days Rheumatologic History: ++RF+++CCP Enbrel: 08/2014- 05/2015 Humira : Dates unknown Plaquenil: 06/2017 GI upset Xeljanz: 04/2018- 12/2018 high co-pay, did not feel better on the medicine. Kevzara: 01/2021 - 02/2021 rash Actemra: 05/2021 rash Arava :07/2019- DC 10/2024 after Breast CA dx & chemotherapy started Current Rheumatology Medication(s): Leflunomide 20mg daily [facility] Medical History (Updated 03/16/25 @ 11:09 by Lillie Beck MD) Left breast mass Neck pain Melanoma Elevated blood pressure reading Dysuria Degenerative disc disease Hypercholesterolemia Hepatitis B core antibody positive Seropositive rheumatoid arthritis Palpitations Asthma Rheumatoid arthritis Surgical History S/P breast lumpectomy History of bilateral tubal ligation Family History Father Cardiovascular disease Mother No problems noted. Son Throat cancer Social History Housing: House Alcohol intake: never Patient Tobacco Use Status: Former Tobacco user Tobacco use type: Cigarette Years Smoked: 27 years old quit e-Cigarette/Vaping Use: Never Used Second Hand Smoke Exposure: Yes service: No Current occupational status: retired Cognitive needs: No Hearing needs: No Vision needs: Yes Review of Systems Const Details: Review of Systems Constitutional: Denies fever, chills, weight loss ENT: Denies vision changes, eye pain or eye redness, dental caries, dry mouth GI: Denies nausea, vomiting, diarrhea, abdominal pain, change in BM Pulm: Denies SOB, GODDARD, hemoptysis, wheezing Cards: Denies chest pain, palpitations Skin: Denies Raynaud's, rash, nail changes, photosensitivity, LAB AIDE: Denies headaches, weakness, paresthesias, recurrent falls MSK: as per HPI All other systems reviewed and are unremarkable except noted above Physical Exam Exam Exam: Vital signs reviewed Physical Examination CONSTITUITIONAL Patient alert and cooperative. Well appearing and in no apparent painful distress MSK Hands Right Hand: Able to make a fist. No swelling or tenderness to palpation of the MCPs, PIPs or DIPs. Left Hand: Able to make a fist. No swelling or tenderness to palpation of the MCPs, PIPs or DIPs. Herbedens nodes noted bilaterally Squarring of the 1st CMC bilaterally Wrists Right Wrist: Full ROM to flexion and extension. No swelling or TTP Left Wrist: Full ROM to flexion and extension. No swelling or TTP Elbows Right Elbow: Full ROM. No swelling or TTP. No TTP of the medial epicondyle. No TTP of the lateral epicondyle Left Elbow: Full ROM. No swelling or TTP. No TTP of the medial epicondyle. No TTP of the lateral epicondyle Shoulders Right shoulder: Full ROM. No swelling noted. No TTP of the AC joint. No TTP of the subacromial bursa. No TTP of the posterior shoulder Left shoulder: Full ROM. No swelling noted. No TTP of the AC joint. No TTP of the subacromial bursa. No TTP of the posterior shoulder Hip bursa: No tenderness to palpation bilaterally Knees Right knee: Full ROM. No swelling noted. No TTP of the knee joint line. No TTP of pes anserine bursa Left knee: Full ROM. No swelling noted. No TTP of the knee joint line. No TTP of pes anserine bursa. Crepitations felt bilaterally Ankles Right ankle: Good ankle dorsiflexion and plantar flexion. No swelling. No TTP of the ankle joint Left ankle: Good ankle dorsiflexion and plantar flexion. No swelling. No TTP of the ankle joint Feet Right foot: Negative squeeze test Left foot: Negative squeeze test Tender points? No tenderness to palpation of the bilateral trapezius, supraspinatus, anterior costochondral junctions, bilateral suboccipital muscle insertions SKIN No rashes Vital Signs: Last Vital Signs Pulse 91 08/22/25 08:47 BP 124/80 08/22/25 08:47 Pulse Ox 99 08/22/25 08:47 Oxygen Delivery Method Room Air 08/22/25 08:47 BMI result Body Mass Index 20.0 Results Reviewed Results Reviewed: Laboratory Tests 03/13/25 08/19/25 09:05 10:39 WBC 5.2 RBC 3.43 L D Hgb 11.0 L D Hct 30.2 L Plt Count 171 D ESR 48 H 61 H Sodium 141 Potassium 4.6 Chloride 107 Carbon Dioxide 26 BUN 17 H Creatinine 0.69 AST 22 ALT 13 C-Reactive Protein 0.32 1.59 H DEXA 07/2023 FINDINGS: LEFT FEMUR, NECK: Current: BMD 0.947 g/cm2, Z-score 1.2, T-score -0.7, normal. Prior: BMD 0.943 g/cm2. Baseline: BMD 0.959 g/cm2. LEFT FEMUR, TOTAL: Current: BMD 1.015 g/cm2, Z-score 1.8, T-score 0.1, normal, 1.2% decrease from previous, 2.5% decrease from baseline (<5% change is not significant). Prior: BMD 1.027 g/cm2. Baseline: BMD 1.041 g/cm2. AP SPINE L1-L2 (excluding L3 and L4): The data of L1-L4 has been changed to exclude the L3 and L4 vertebral bodies, because degenerative sclerosis at these levels may cause overestimation of lumbar spine density. Current: BMD 1.102 g/cm2, Z-score 1.4, T-score -0.5, normal, 14.8% decrease from previous, 4.7% increase from baseline (<5% change is not significant). Prior: BMD 1.294 g/cm2. Baseline: BMD 1.053 g/cm2. Assessment & Plan Assessment & Plan (1) Seropositive rheumatoid arthritis: Comment: ++RF+++CCP Enbrel: 08/2014- 05/2015 Humira : Dates unknown Plaquenil: 06/2017 GI upset Xeljanz: 04/2018- 12/2018 high co-pay, did not feel better on the medicine. Kevzara: 01/2021 - 02/2021 rash Actemra: 05/2021 rash Arava :07/2019- DC 10/2024 after Breast CA dx & chemotherapy started Code(s): M05.9 - Rheumatoid arthritis with rheumatoid factor, unspecified Category: Medical Plan: #Seropositive RA Patient is a 74-year-old female here today for follow up for seropositive rheumatoid arthritis. At this time her examination is consistent with remission. Patient has completed chemotherapy and surgery. Plan - Leflunomide 20mg daily - Alpha lipoic acid 600mg daily for neuropathy - RTC 6 months - Labs before visit: CBC, CMP, ESR, CRP (2) Screening for osteoporosis: Code(s): Z13.820 - Encounter for screening for osteoporosis Plan: #Screening for osteoporosis Last DEXA 07/2023: AP spine -.05, Left femur neck -0.7, Left femur total 0.1. 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 Has a very long half-life. Needs cholestyramine washout if there is desire for Initiation: CBC, BMP, LFTs, hepatitis-B and C serologies every 2-4 weeks for 3 months Monitoring: CBC, BMP, LFTs, hepatitis B and C serologies Plan I spent 30 minutes reviewing the record and labs, taking a history, examining the patient, discussing the treatment plan, ordering diagnostic work up and documenting in the medical record Orders: Orders Complete Blood Count Auto Diff 6 Months Z79.899 - Other terminal makeup operator (current) drug therapy Comprehensive Met. Panel 6 Months Z79.899 - Other terminal makeup operator (current) drug therapy C Reactive Protein 6 Months Z79.899 - Other long-term (current) drug therapy Vitamin D 25-OH Total 6 Months Z79.899 - Other long-term (current) drug therapy Erythrocyte Sedimentation Rate 6 Months Z79.899 - Other terminal makeup operator (current) drug therapy XR DEXA axial skeleton Today M81.0 - Age-related osteoporosis without current pathological fracture Medications: Refilled leflunomide 20 mg PO DAILY 90 tabs 1RF M05.9 - Rheumatoid arthritis with rheumatoid factor, unspecified alpha lipoic acid 600 mg PO DAILY 90 caps 1RF G62.9 - Polyneuropathy, unspecified Discontinued cefuroxime axetil Discontinued Reason: Patient Completed Course 250 mg PO BID 7 days 14 tabs 0RF pregabalin Discontinued Reason: Patient no longer taking 25 mg PO BEDTIME 90 caps 1RF Coding Level of Care Code Est Pt Level 3 (68688) Complex EM visit Add On G2211 Diagnoses Seropositive rheumatoid arthritis M05.9 Screening for osteoporosis Z13.820 Encounter for monitoring leflunomide therapy Z51.81; Z79.69
[2025-08-22 08:47] VITALS: BP 124/80; PULSE 91; O2SAT 99
== END 2025-08-22 09:14 | disposition home or self-care (01) ==
LOC: HO.RHES 08:15
PROVIDERS: PCP Internal Medicine; Visit Provider Student in an Organized Health Care Education/Training Program
DX: M05.9 Rheumatoid arthritis with rheumatoid factor, unspecified (principal); Z13.820 Encounter for screening for osteoporosis; Z51.81 Encounter for therapeutic drug level monitoring; Z79.69 Long term (current) use of other immunomodulators and immunosuppressants
CPT/HCPCS: 99213; G2211

== ENCOUNTER → 2025-08-22 08:15 | Outpatient (BNVA) | payer MEDICARE, SELFPAY | PROVIDERS: PCP Internal Medicine; Visit Provider Student in an Organized Health Care Education/Training Program | DX: M05.79 Rheumatoid arthritis with rheumatoid factor of multiple sites without organ or systems involvement (principal); Z79.69 Long term (current) use of other immunomodulators and immunosuppressants; Z79.899 Other long term (current) drug therapy | CPT/HCPCS: 99212 ==

== ENCOUNTER 2025-08-24 12:51 | Outpatient (AMB) | payer MEDICARE, SELFPAY ==
--- OUTSIDE RECORDS SUMMARY | 2025-08-24 12:55 | XMS_ITS | Patient Health Record ---
Author Organization [facility] Address [address] [place] [address] Care Team Providers Care Water Main Inspector Name Role Phone Juni Crews MD Primary Care Provider Jt Baum [phone] Allergies Allergen (clinical drug ingredient) Drug/Non Drug [...] Problem Status W/U Status Risk Notes Problem Screening for malignant neoplasm of colon ([id number]) Encounter for screening for malignant neoplasm of colon (Z12.11) Active confirmed Problem Preprocedural examination ([id number]) Preprocedural examination (Z01.818) Active confirmed Plan Of Treatment Future Test Test Name Order Date COLONOSCOPY 09/08/2019 Insurance Providers Payer Name Payer Address Payer Phone Subscriber Number Group Number Insured Name Patient Relationship to Insured Coverage Start Date Coverage End Date [facility] [address] [place], [place] [id number] [phone] [id number] JULY CARNEY Self - patient is the insured Medical (General) History Medical History History ICD Code Rheumatoid arthritis Asthma - mild intermittent Denies DC,DM,CVA,renal disease Neg. screening colonoscopy in 08/2008 Surgical History Surgery Date(Month/Year) Tubal ligation Breast Lumpectomy--benign
[2025-08-24 12:58] VITALS: BP 118/82; PULSE 91; TEMP 36.2; O2SAT 98
--- NOTE | 2025-08-24 12:58 | A.OFFPC_ITS ---
Vital Signs 08/24/25 12:58 Height 5 ft 5 in Weight 120 lb BMI 20.0 BP 118/82 Blood Pressure Location Lt brachial Position Sitting Pulse 91 Pulse Source Pulse Oximeter Temp 97.1 F Temp Source Temporal Artery Scan Pulse Oximetry (%) 98 Oxygen Delivery Method Room Air Intake Visit Reasons: Breast cancer Allergies lisinopril Allergy (Intermediate, Verified 08/24/25 13:01) Cough sarilumab (From Kevzara) Allergy (Intermediate, Verified 08/24/25 13:01) rash tocilizumab (From Actemra) Allergy (Intermediate, Verified 08/24/25 13:01) Rash nitrofurantoin (Macrobid) Allergy (Unknown, Verified 08/24/25 13:01) UNKNOWN simvastatin Adverse Reaction (Severe, Verified 08/24/25 13:01) ABD PAIN Medication List - Last Reconciled 08/24/25 by Juni Crews MD albuterol sulfate 90 mcg/actuation (ProAir HFA) 2 puffs inhalation Q6H PRN alpha lipoic acid 600 mg PO DAILY ascorbate calcium (vitamin C) 500 mg PO DAILY cholecalciferol (vitamin D3) 25 mcg PO DAILY cyanocobalamin (vitamin B-12) 1,000 mcg PO DAILY folic acid 0.8 mg PO DAILY lactobacillus combination no.9 (Adult 50 Plus Probiotic) 4,000 mmu cells PO DAILY leflunomide 20 mg PO DAILY losartan 50 mg PO DAILY sxnisslz-qgbzghxnh-LK 3.5-10,000-1 mg/mL-unit/mL-% 4 drps otic (ear) left TID Tobacco use date assessed: 08/24/25 Fall risk assessment: No Falls in past year Last assessed Fall Risk: 08/24/25 Dental Screening Dental Screen Date: 08/24/25 Did you have a dental visit in the last 12 months?: Yes Did you have a dental problem in the last 6 months where you did not have access to dental care?: No Was dental information given to patient?: Patient has dentist [facility] Medical History Left breast mass Neck pain Melanoma Elevated blood pressure reading Dysuria Degenerative disc disease Hypercholesterolemia Hepatitis B core antibody positive Seropositive rheumatoid arthritis Palpitations Asthma Rheumatoid arthritis Surgical History S/P breast lumpectomy History of bilateral tubal ligation Family History Father Cardiovascular disease Mother No problems noted. Son Throat cancer Social History Housing: House Alcohol intake: never Patient Tobacco Use Status: Former Tobacco user Tobacco use type: Cigarette Years Smoked: 27 years old quit e-Cigarette/Vaping Use: Never Used Second Hand Smoke Exposure: Yes service: No Current occupational status: retired Cognitive needs: No Hearing needs: No Vision needs: Yes Questionnaire PHQ-9 Over the last 2 weeks, how often have you been bothered by any of the following problems? 1. Little interest or pleasure in doing things: several days 2. Feeling down, depressed, or hopeless: several days 3. Trouble falling or staying asleep, or sleeping too much: several days 4. Feeling tired or having little energy: several days 5. Poor appetite or overeating: several days 6. Feeling bad about yourself - or that you are a failure or have let yourself or your family down: several days 7. Trouble concentrating on things, such as reading the newspaper or watching television: several days 8. Moving or speaking so slowly that other people could have noticed. Or the opposite - being so fidgety or restless that you have been moving around a lot more than usual: not at all 9. Thoughts that you would be better off or of hurting yourself in some way: not at all Total score: 7 Depression Screening Interpretation: Positive Depression Screening Done: Yes Source: Developed by Drs. Jt Regalado, Sharon Cherry, Nic Rogel and colleagues, with an educational aylin from [employer]. Thrive Questionnaire Date Thrive assessed: 02/20/25 I am a: Patient What is your living situation today?: I have a steady place to live Within the past 12 months, did the food you bought not last and you didn't have the money to get more?: Never true Within the past 12 months, did you worry whether your food would run out before you got money to buy more?: Never true Do you have trouble paying for medicines?: No Do you have trouble getting transportation to medical appointments?: No Do you have trouble paying your heating and electricity bill?: No Do you have trouble taking care of your child, family member or friend?: No Do you have trouble with day-to-day activities such as bathing, preparing meals, shopping, managing finances, etc.?: No Are you currently unemployed and looking for a job?: No Are you interested in more education?: I choose not to answer this question Please select the resources that you would like help with: None Currently or been in a relationship where the following occur: No concerns reported THRIVE Score: 0 AUDIT C Alcohol Use Questionnaire (AUDIT-C) 1. How often do you have a drink containing alcohol?: Never 3. How often do you have six or more drinks on one occasion?: Never Total Score: 0 JULIANE-7 AMB Questionnaire JULIANE-7 Date JULIANE - 7 assessed: 02/03/25 Feeling nervous, anxious, or on edge: 0 = Not at all Not being able to stop or control worryin = Not at all Worrying too much about different things: 1 = Several days Trouble relaxin = Several days Being so restless that it is hard to sit still: 1 = Several days Becoming easily annoyed or irritable: 1 = Several days Feeling afraid as if something awful might happen: 0 = Not at all Total JULIANE-7 score (0-4 normal; 5-9 mild; 10-14 moderate; 15-21 severe): 4 Source: Developed by Drs. Jt Regalado, Sharon Cherry, Nic Rogel and colleagues, with an educational aylin from [employer]. Physical exam (Primary Care) Vital Signs: Last Vital Signs Temp 97.1 F 08/24/25 12:58 Pulse 91 08/24/25 12:58 BP 118/82 08/24/25 12:58 Pulse Ox 98 08/24/25 12:58 Oxygen Delivery Method Room Air 08/24/25 12:58 BMI result Body Mass Index 20.0 Tobacco/Smoking Status: Tobacco use Status Tobacco use date assessed 08/24/25 08/24/25 13:03 Patient Tobacco Use Status Former Tobacco user 08/24/25 13:03 Tobacco use type Cigarette 08/24/25 13:03 e-Cigarette/Vaping Use Never Used 08/24/25 13:03 PHQ-9: PHQ-9 Score PHQ-9: Total score 7 08/24/25 13:17 Depression Screening Interpretation: Positive Thrive Assessment: Date of Thrive Assessment Date Thrive assessed 02/20/25 08/24/25 13:03 Currently or been in a relationship where the following occur: No concerns reported Const General: alert; No acute distress Eyes Conjunctivae: conjunctivae normal Resp Auscultation: clear to auscultation bilaterally Cardio Rate: regular rate Rhythm: regular rhythm GI Inspection: Yes normal to inspection Extrem General: Yes normal to inspection and No edema Coding Level of Care Code Est Pt Level 4 (17987) Complex EM visit Add On G2211 Diagnoses Seropositive rheumatoid arthritis M05.9 Breast cancer, left C50.912 Hypertension I10 Hypercholesterolemia E78.00 Cough R05.9 Impacted cerumen of both ears H61.23 Impacted cerumen, left ear H61.22 Assessment & Plan Assessment & Plan (1) Seropositive rheumatoid arthritis: Comment: ++RF+++CCP Enbrel: 08/2014- 05/2015 Humira : Dates unknown Plaquenil: 06/2017 GI upset Xeljanz: 04/2018- 12/2018 high co-pay, did not feel better on the medicine. Kevzara: 01/2021 - 02/2021 rash Actemra: 05/2021 rash Arava :07/2019- DC 10/2024 after Breast CA dx & chemotherapy started Code(s): M05.9 - Rheumatoid arthritis with rheumatoid factor, unspecified Category: Medical Plan: Continue to be followed up by Rheumatology bone density also has been requested (2) Breast cancer, left: Comment: August 2024 pathology invasive ductal carcinoma grade 3 ER negative OK negative HER2 negative Code(s): C50.912 - Malignant neoplasm of unspecified site of left female breast Category: Medical Plan: Gynecology oncology (3) Hypertension: Code(s): I10 - Essential (primary) hypertension Category: Medical Plan: Continue with blood pressure medication (4) Hypercholesterolemia: Code(s): E78.00 - Pure hypercholesterolemia, unspecified Category: Medical Plan: Avoid fried foods, chicken skin, eggs, butter margarine, pastries and meat. Be it pork or beef they have a lot of cholesterol (5) Cough: Code(s): R05.9 - Cough, unspecified Category: Medical (6) Impacted cerumen of both ears: Code(s): H61.23 - Impacted cerumen, bilateral Category: Medical Plan: scoop and irrigation done R TM intact, unsuccesful with L ear (7) Impacted cerumen, left ear: Code(s): H61.22 - Impacted cerumen, left ear Category: Medical Plan History of Present Illness The patient is a 74-year-old female presenting with a follow-up for multiple chronic conditions including rheumatoid arthritis, mild asthma, hypertension, and a history of breast cancer. The patient has a history of rheumatoid arthritis, for which she is being followed by rheumatology. She is currently on leflunomide and alpha-lipoic acid for management. Her last bone density test in July 2023 was normal, and a follow-up has been requested. The patient has mild asthma and has requested a refill for albuterol due to recent breathing difficulties and mucus production. She reports no fever but has experienced a persistent cough for about a month, prompting consideration for a chest x-ray. The patient has a history of hypertension and is continuing her blood pressure medication. The patient was diagnosed with left breast cancer in August 2024, characterized as triple negative. She underwent breast-conserving surgery followed by adjuvant radiation therapy and is currently on zoledronic acid. Her last mammogram was in August 2025. The patient has a history of transient ischemic attack (TIA) and is being monitored for any recurrent symptoms. Recent blood work showed anemia with hemoglobin at 11 g/dL, which has improved, and normal platelet count. Electrolytes, renal function, and liver function tests were normal, but C-reactive protein was elevated, indicating inflammation. The last cholesterol test in 2022 revealed elevated LDL levels. The patient reports ear wax impaction and is considering an appointment for ear cleaning. Health Maintenance - Bone density test in July 2023 was normal, follow-up requested - Last mammogram in August 2025 - Last cholesterol test in 2022 revealed elevated LDL levels Social History Review of Systems - Respiratory: Reports dyspnea on exertion, persistent cough for about a month, mucus production. Denies fever. - Cardiovascular: Denies chest pain. - Neurological: Denies headaches, dizziness, or balance issues. - Ears: Reports ear wax impaction. Physical Exam - Throat: No abnormalities noted - Ears: Ear wax impaction noted Results - Labs: Anemia with hemoglobin at 11 g/dL, normal platelet count, elevated C- reactive protein, normal electrolytes, renal and liver function tests - Tests: Last cholesterol test in 2022 revealed elevated LDL levels Plan Patient was informed and verbally consented to the use of an ambient scribe for clinic note documentation during this visit. 1. Rheumatoid Arthritis The patient is being followed by rheumatology for rheumatoid arthritis and is currently on leflunomide and alpha-lipoic acid. A follow-up bone density test has been requested to monitor bone health. 2. Mild Asthma The patient has requested a refill for albuterol due to recent breathing difficulties and mucus production. A chest x-ray is being considered due to a persistent cough lasting about a month. 3. Hypertension The patient is continuing her blood pressure medication as part of her hypertension management. 4. Left Breast Cancer, Triple Negative The patient was diagnosed with triple negative left breast cancer in August 2024 and underwent breast-conserving surgery followed by adjuvant radiation therapy. She is currently on zoledronic acid and her last mammogram was in August 2025. 5. Anemia Recent blood work showed anemia with hemoglobin at 11 g/dL, which has improved, and normal platelet count. 6. Ear Wax Impaction The patient reports ear wax impaction and is considering an appointment for ear cleaning. Discussion Notes During the visit, we discussed the management of the patient's chronic conditions, including rheumatoid arthritis, asthma, and hypertension. We also reviewed her history of breast cancer and the importance of ongoing monitoring with mammograms and zoledronic acid therapy. The patient was advised to consider a chest x-ray due to her persistent cough and to follow up with ear cleaning for wax impaction. Patient Instructions - Continue taking prescribed medications for rheumatoid arthritis, asthma, and hypertension. - Schedule a chest x-ray to evaluate persistent cough. - Follow up with an ear cleaning appointment for wax impaction. - Maintain regular follow-ups with rheumatology and oncology. Orders: Orders XR chest 2V Today R05.9 - Cough, unspecified Resp Pathogen Panel - [facility] Today R05.9 - Cough, unspecified Referrals Ear/Nose/Throat Referral H61.22 - Impacted cerumen, left ear Medications: New uinalilw-pneilgljh-WW 3.5-10,000-1 mg/mL-unit/mL-% 4 drps otic (ear) left TID 10 mL 5RF R05.9 - Cough, unspecified Refilled albuterol sulfate 90 mcg/actuation (ProAir HFA) 2 puffs inhalation Q6H PRN 8.5 grams 0RF shortness of breath or wheezing J45.909 - Unspecified asthma, uncomplicated
== END 2025-08-24 13:50 | disposition home or self-care (01) ==
LOC: HO.HMCH 12:52
PROVIDERS: PCP Internal Medicine; Visit Provider Internal Medicine
DX: M05.9 Rheumatoid arthritis with rheumatoid factor, unspecified (principal); C50.912 Malignant neoplasm of unspecified site of left female breast; I10 Essential (primary) hypertension; E78.00 Pure hypercholesterolemia, unspecified; R05.9 Cough, unspecified; H61.23 Impacted cerumen, bilateral; H61.22 Impacted cerumen, left ear

== ENCOUNTER 2025-08-24 12:51 | Outpatient (REF) | payer MEDICARE, SELFPAY ==
--- NOTE | ~2025-08-24 | XR_ITS ---
EXAMINATION: XR CHEST CLINICAL INFORMATION: R05.9 - Cough, unspecified COMPARISON: 08/28/2020 TECHNIQUE: 2 views of the chest were obtained. FINDINGS: No significant abnormality is noted involving the heart, lungs, mediastinum, bony thorax or soft tissues. Postsurgical clips project over the lateral left lower lung zone. XR/XR chest 2V IMPRESSION: No acute disease Electronically signed by: Stevenson Lopez MD 08/24/2025 03:11 PM EDT
[2025-08-24 17:08] LABS: Alanine Aminotransferase 16 U/L (0-31); Albumin Level 4.3 g/dL (3.5-5.0); Alkaline Phosphatase 101 U/L (39-117); Anion Gap 16 (12-20); Aspartate Amino Transferase 44 U/L (5-31); Blood Urea Nitrogen 15 mg/dL (9-16); Calcium 10.4 mg/dL (8.4-10.2); Carbon Dioxide 24 mmol/L (22-29); Chloride 107 mmol/L (96-108); Cholesterol 270 mg/dL (<200); Estimated Glomerular Filt Rate > 60; HDL Cholesterol 50 mg/dL (>40); Potassium 5.0 mmol/L (3.3-5.1); Sodium 142 mmol/L (135-145); Total Protein 7.1 g/dL (6.5-8.0); Triglycerides 168 mg/dL (<150)
[2025-08-24 17:12] LABS: Free T4 (Free Thyroxine) 0.85 ng/dL (0.71-1.85); Thyroid Stimulating Hormone 1.53 uIU/mL (0.32-4.0)
[2025-08-24 17:20] LABS: Folate 14.2 ng/mL (> or = 4.0); Vitamin B12 1099 pg/mL (200-900)
== END 2025-08-24 12:52 | disposition home or self-care (01) ==
LOC: HO.XRAY 12:51
PROVIDERS: PCP Internal Medicine; Visit Provider Internal Medicine
DX: E78.00 Pure hypercholesterolemia, unspecified (principal); R05.9 Cough, unspecified; M05.70 Rheumatoid arthritis with rheumatoid factor of unspecified site without organ or systems involvement; C50.912 Malignant neoplasm of unspecified site of left female breast; I10 Essential (primary) hypertension; H61.23 Impacted cerumen, bilateral; Z79.899 Other long term (current) drug therapy
CPT/HCPCS: 36415; 71046; 80053; 80061; 82306; 82607; 82746; 84439; 84443; 85025; 85652; 86140; 99212

== ENCOUNTER → 2025-08-24 14:25 | Outpatient (BNV) | payer MEDICARE, SELFPAY | PROVIDERS: PCP Internal Medicine; Visit Provider Radiology Diagnostic Radiology | DX: R05.9 Cough, unspecified (principal) | CPT/HCPCS: 71046 ==

== ENCOUNTER 2025-08-31 08:41 | Outpatient (REF) | payer MEDICARE, SELFPAY ==
[2025-08-31 09:21] LABS: MANUAL DIFF FLAG NO
--- OUTSIDE RECORDS SUMMARY | 2025-08-31 09:31 | XMS_ITS | Patient Health Record ---
Author Organization [facility] Address [address] [place] [address] Care Team Providers Care Field Representative Name Role Phone Juni Crews MD Primary Care Provider Jt Baum [phone] Allergies Allergen (clinical drug ingredient) Drug/Non Drug [...] Problem Screening for malignant neoplasm of colon (937204360) Encounter for screening for malignant neoplasm of colon (Z12.11) Active confirmed Problem Preprocedural examination ([id number]) Preprocedural examination (Z01.818) Active confirmed Plan Of Treatment Future Test Test Name Order Date COLONOSCOPY 09/08/2019 Insurance Providers Payer Name Payer Address Payer Phone Subscriber Number Group Number Insured Name Patient Relationship to Insured Coverage Start Date Coverage End Date [facility] [address] [place], [place] [id number] JULY CARNEY Self - patient is the insured Medical (General) History Medical History History ICD Code Rheumatoid arthritis Asthma - mild intermittent Denies MO,DM,CVA,renal disease Neg. screening colonoscopy in 08/2008 Surgical History Surgery Date(Month/Year) Tubal ligation Breast Lumpectomy--benign
[2025-08-31 09:58] LABS: Hematocrit 33.2 % (37.0-47.0); Hemoglobin 11.4 g/dl (12.0-16.0); Imm Gran Abs Auto 0.01 X10*3/uL (0.00-0.03); Imm Gran Pct Auto 0.2 % (0.0-0.4); Lymphocytes Absolute Auto 0.5 X10*3/uL (1.2-4.9); Mean Corpuscular HGB Conc 34.3 g/dl (31.0-35.0); Mean Corpuscular Hemoglobin 31.0 pg (27.0-33.0); Mean Corpuscular Volume 90.2 fL (80.0-98.0); NRBC Abs Auto 0.000 X10*3/uL (0.0-0.012); NRBC Pct Auto 0.0 /100WBC (0.0-0.2); Platelet Count 211 X10*3/uL (160-400); Red Blood Count 3.68 X10*6/uL (4.20-5.50); White Blood Count 4.5 X10*3/uL (4.8-10.8)
== END 2025-08-31 08:42 | disposition home or self-care (01) ==
LOC: HO.LAB 08:41
PROVIDERS: PCP Internal Medicine; Visit Provider Internal Medicine
DX: E78.00 Pure hypercholesterolemia, unspecified (principal)
CPT/HCPCS: 36415; 85025; 85652

== ENCOUNTER 2025-11-03 08:18 | Outpatient (REF) | payer MEDICARE, SELFPAY ==
--- NOTE | ~2025-11-03 | US_ITS ---
CLINICAL HISTORY: R79.89 - Other specified abnormal findings of blood chemistry US abdomen complete with color Doppler Comparison: None Findings: The visualized pancreas, aorta, and inferior vena cava are unremarkable. Liver normal size and echotexture. Right lobe 11.5 cm length. No focal hepatic masses. Common duct 6.5 mm diameter. Physiologic distention of the gallbladder. Layering gallstones No gallbladder wall thickening. No pericholecystic fluid. No sonographic Delaney sign. Right kidney normal size, 9.6 cm in length. Normal cortical width and echotexture. No solid or cystic renal masses. No nephrolithiasis. No hydronephrosis. Left kidney normal, 9.5 cm in length. Normal cortical width and echotexture. Renal cortical cyst midpole measuring 6 x 5 x 5 mm. No nephrolithiasis. No hydronephrosis. Spleen measures 10.8 cm. No splenic masses. No ascites. No lymphadenopathy. Impression: 1. Cholelithiasis without evidence of cholecystitis. 2. Renal cortical cyst left kidney. This document has been electronically signed by: Fidencio Cowart MD on 11/03/2025 10:21:25
--- OUTSIDE RECORDS SUMMARY | 2025-11-03 08:24 | XMS_ITS | Patient Health Record ---
Author Organization [facility] Address [address] [place] [address] Care Team Providers Care Sas Programmer Remote Name Role Phone Juni Crews MD Primary Care Provider Jt Baum [phone] Allergies Allergen (clinical drug ingredient) Drug/Non Drug Allergy documented on EMR Reaction Allergy Type Onset Date Status nitrofurantoin, macrocrystals / nitrofurantoin, monohydrate Macrobid Unknown Drug Allergy Active Reason For Referral No Information Medications Medication SIG (Take, Route, Frequency, Duration) Notes Start Date End Date Status Arava 10 MG Tablet 1 tablet Orally Once a day Active Multivitamin Adults - Tablet as directed Orally Active Immunizations Vaccine Route Administration Date Status Comme nts Influenza Unknown 09/08/2019 Refused Social History Tobacco Use: Social History Observation Description Date Details (start date - stop date) Former Smoker NA - NA Social History Drugs/Alcohol: Social Info Question Answer Notes Alcohol Screen Did you have a drink containing alcohol in the past year? No Points 0 Interpretation Negative Tobacco Use: Social Info Question Answer Notes Tobacco Use/Smoking Patient is a former smoker When did you stop smoking? age 27 How long has it been since you last smoked? > 10 years Additional Details Category Social Info Options Details Miscellaneous: Marital status: Occupation: retired Section Notes: Nonsmoker; no sig alcohol Problems Problem Type SNOMED Code ICD Code Onset Dates Problem Status W/U Status Risk Notes Problem Screening for malignant neoplasm of colon (779638979) Encounter for screening for malignant neoplasm of colon (Z12.11) Active confirmed Problem Preprocedural examination (201034626119237) Preprocedural examination (Z01.818) Active confirmed Plan Of Treatment Future Test Test Name Order Date COLONOSCOPY 09/08/2019 Insurance Providers Payer Name Payer Address Payer Phone Subscriber Number Group Number Insured Name Patient Relationship to Insured Coverage Start Date Coverage End Date [facility] [address] [place], [place] [id number] JULY CARNEY Self - patient is the insured Medical (General) History Medical History History ICD Code Rheumatoid arthritis Asthma - mild intermittent Denies MD,DM,CVA,renal disease Neg. screening colonoscopy in 08/2008 Surgical History Surgery Date(Month/Year) Tubal ligation Breast Lumpectomy--benign
== END 2025-11-03 08:19 | disposition home or self-care (01) ==
LOC: HO.US 08:18
PROVIDERS: PCP Internal Medicine; Visit Provider Internal Medicine
DX: R79.89 Other specified abnormal findings of blood chemistry (principal)
CPT/HCPCS: 76700

== ENCOUNTER → 2025-11-03 08:22 | Outpatient (BNV) | payer MEDICARE, SELFPAY | PROVIDERS: PCP Internal Medicine; Visit Provider Radiology Diagnostic Radiology | DX: K80.20 Calculus of gallbladder without cholecystitis without obstruction (principal); N28.1 Cyst of kidney, acquired | CPT/HCPCS: 76700 ==

== ENCOUNTER 2025-11-07 08:26 | Outpatient (REF) | payer MEDICARE, SELFPAY ==
--- NOTE | ~2025-11-07 | MM_ITS ---
EXAMINATION: DXA BONE DENSITY AXIAL HISTORY: M81.0 - Age-related osteoporosis without current pathological fracture TECHNIQUE: Music Kickup Dual energy absorptiometry (DEXA) of the lumbar spine, total left hip, and femoral neck was performed. COMPARISON: Comparison is made with the prior examination dated 07/31/2023. FINDINGS: The bone mineral density of the lumbar spine is 1.201 g/cm2, corresponding to a T-score of 0.3, and a Z-score of 2.4. This is indicative of normal bone mineral density. This represents a BMD change of 9.0% compared to the prior exam. This is statistically significant. The bone mineral density of the left total hip is 0.954 g/cm2, corresponding to a T-score of -0.4, and a Z-score of 1.5. This is indicative of normal bone mineral density. This represents a BMD change of -6.0% compared to the prior exam. This is statistically significant. The bone mineral density of the left femoral neck is 0.919 g/cm2, corresponding to a T-score of -0.9, and a Z-score of 1.2. This is indicative of normal bone mineral density. This represents a BMD change of -3.0% compared to the prior exam. FRACTURE RISK: The FRAX index suggests a ten year probability of major osteoporotic fracture of 10.3%, and of hip fracture 1.6%. MM/XR DEXA axial skeleton IMPRESSION: Based on bone mineral density, and according to World Health Organization (WHO) criteria, the diagnosis is consistent with normal bone mineral density. Statistically, 68% of repeat scans fall within 1 SD (+/- 0.010 g/cm2 for AP spine L1-L4) and 1 SD (+/- 0.012 g/cm2 for femur total) FRAX is a trademark of the [employer]'s [employer] Met[employer], a World Health Organization (WHO) Collaborating Center. Electronically signed by: Jt Zapien MD 11/07/2025 08:[address] [facility]
--- OUTSIDE RECORDS SUMMARY | 2025-11-07 08:34 | XMS_ITS | Patient Health Record ---
Author Organization [facility] Address [address] [place] [address] Care Team Providers Care Advertising Clerk Name Role Phone Juni Crews MD Primary Care Provider Jt Baum [phone] Allergies Allergen (clinical drug ingredient) Drug/Non Drug [...] Problem Screening for malignant neoplasm of colon (056846763) Encounter for screening for malignant neoplasm of colon (Z12.11) Active confirmed Problem Preprocedural examination ([id number]) Preprocedural examination (Z01.818) Active confirmed Plan Of Treatment Future Test Test Name Order Date COLONOSCOPY 09/08/2019 Insurance Providers Payer Name Payer Address Payer Phone Subscriber Number Group Number Insured Name Patient Relationship to Insured Coverage Start Date Coverage End Date [facility] [address] [place], [place] [id number] JULY CARNEY Self - patient is the insured Medical (General) History Medical History History ICD Code Rheumatoid arthritis Asthma - mild intermittent Denies CA,DM,CVA,renal disease Neg. screening colonoscopy in 08/2008 Surgical History Surgery Date(Month/Year) Tubal ligation Breast Lumpectomy--benign
== END 2025-11-07 08:27 | disposition home or self-care (01) ==
LOC: HO.MAMMO 08:26
PROVIDERS: PCP Internal Medicine; Visit Provider Student in an Organized Health Care Education/Training Program
DX: M81.0 Age-related osteoporosis without current pathological fracture (principal)
CPT/HCPCS: 77080

== ENCOUNTER → 2025-11-07 08:45 | Outpatient (BNV) | payer MEDICARE, SELFPAY | PROVIDERS: PCP Internal Medicine; Visit Provider Radiology Diagnostic Radiology | DX: E28.39 Other primary ovarian failure (principal) | CPT/HCPCS: 77080 ==